=== PATIENT | male | born 1965 | race African-American/Black ===

== ENCOUNTER 2016-10-03 23:26 | Emergency (ER) | payer MEDICARE ==
--- NOTE | 2016-10-04 04:37 | ER Document Report ---
ED Dizziness/Weakness - General Chief Complaint: Dizziness Stated Complaint: DIZZINESS Time seen by provider: 04:32 Mode of Arrival: Ambulatory Information source: Patient Notes: 50-year-old male presents to ED for dizziness for 2 weeks with any movement he states he had peritonitis from August 25 and he is on peritoneal dialysis for renal failure. TRAVEL OUTSIDE OF THE [place] IN LAST 30 DAYS: No - HPI Patient complains to provider of: Dizziness Onset: Other - Since September 15 Onset/Duration: Intermittent Quality of pain: No pain Pain Level: Denies Associated symptoms: Dizzy - A staggering since September 15 Exacerbated by: Change in position, Movement of head Baseline gait: Walks w/o assistance - Related Data Allergies/Adverse Reactions: cefazolin sodium [From Ancef] Allergy (Verified 10/12/13 09:26) Hives Iodinated Contrast Media - Oral and [IV Dye, Iodine Containing] Allergy ( Verified 10/12/13 09:26) Hot Flash Tuberculin,Ppd,Multi-Puncture [From Tuberculin PPD Nathalie Test] Allergy (Verified 10/12/13 09:26) Hives Past Medical History - General Information source: Patient - Social History Smoking Status: Never Smoker Cigarette use (# per day): No Chew tobacco use (# tins/day): No Smoking Education Provided: No Frequency of alcohol use: None Drug Abuse: None Lives with: Family Family History: DM, Hyperlipidemia, Hypertension Patient has suicidal ideation: No Patient has homicidal ideation: No - Past Medical History Cardiac Medical History: Reports: Hx Congestive Heart Failure, Hx Coronary Artery Disease, Hx Hypercholesterolemia, Hx Hypertension, Hx Pulmonary Embolism Pulmonary Medical History: Reports: Hx COPD, Hx Sleep Apnea EENT Medical History: Reports: None Neurological Medical History: Reports: Hx Cerebrovascular Accident Endocrine Medical History: Reports: Hx Diabetes Mellitus Type 2 Renal/ Medical History: Reports: 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., Hx Peritoneal Dialysis Malignancy Medical History: Reports None GI Medical History: Reports: Hx Gastroesophageal Reflux Disease, Hx Colonoscopy , Hx Endoscopy Musculoskeltal Medical History: Reports Hx Arthritis, Reports Hx Musculoskeletal Trauma Skin Medical History: Reports None Psychiatric Medical History: Reports: None Traumatic Medical History: Reports: None Infectious Medical History: Reports: None Past Surgical History: Reports: Hx Kidney (Renal Surgery) - KIDNEY TRANSPLANT THAT WAS REJECTED thing kidney was removed, Hx Vascular Surgery - NONFUNCTIONING AV FISTULA GRAFTS, peritoneal dialysis catheter - Immunizations Immunizations up to date: Yes Hx Diphtheria, Pertussis, Tetanus Vaccination: Yes - 2009 Hx Pneumococcal Vaccination: 07/02/13 Review of Systems - Review of Systems Constitutional: No symptoms reported EENT: No symptoms reported Cardiovascular: Dizziness - For 2 weeks Respiratory: No symptoms reported Gastrointestinal: No symptoms reported Genitourinary: No symptoms reported Male Genitourinary: No symptoms reported Musculoskeletal: No symptoms reported Skin: No symptoms reported Hematologic/Lymphatic: No symptoms reported Neurological/Psychological: No symptoms reported -: Yes All other systems reviewed and negative Physical Exam - Vital signs Vitals: Temp Pulse Resp BP Pulse Ox 98.1 F 80 18 150/101 H 100 10/03/16 23:35 10/03/16 23:35 10/03/16 23:35 10/03/16 23:35 10/03/16 23:35 Interpretation: Normal Notes: Blood pressure 124/74 when I saw the patient - General General appearance: Appears well, Alert - HEENT Head: Normocephalic, Atraumatic Eyes: Normal Pupils: PERRL - Respiratory Respiratory status: No respiratory distress Chest status: Nontender Breath sounds: Normal Chest palpation: Normal - Cardiovascular Rhythm: Regular Heart sounds: Normal auscultation Murmur: No - Abdominal Inspection: Normal Distension: No distension Bowel sounds: Normal Tenderness: Nontender Organomegaly: No organomegaly - Back Back: Normal, Nontender - Extremities General upper extremity: Normal inspection, Nontender, Normal color, Normal ROM , Normal temperature General lower extremity: Normal inspection, Nontender, Normal color, Normal ROM , Normal temperature, Normal weight bearing. No: Sheba's sign - Neurological Neuro grossly intact: Yes Cognition: Normal Orientation: AAOx4 [place] Scale Eye Opening: Spontaneous [place] Com[place] Scale Verbal: Oriented [place] Scale Motor: Obeys Commands [place] Scale Total: 15 Speech: Normal Motor strength normal: LUE, RUE, LLE, RLE Sensory: Normal - Psychological Associated symptoms: Normal affect, Normal mood - Skin Skin Temperature: Warm Skin Moisture: Dry Skin Color: Normal Course - Re-evaluation Re-evalutation: 10/04/16 06:[address] Pichardo for this patient concerning his dizziness and staggering for the last [address] was ordered and was negative. Patient to continue his peritoneal dialysis as scheduled and follow-up with his primary doctor via telephone today to schedule a follow-up appointment. - Vital Signs Vital signs: Temp Pulse Resp BP Pulse Ox 98.1 F 76 18 126/68 H 100 10/04/16 06:45 10/04/16 06:45 10/04/16 06:45 10/04/16 06:45 10/04/16 06:45 - Laboratory Result Diagrams: 10/04/16 04:15 10/04/16 04:15 Laboratory results interpreted by me: 10/04/16 10/04/16 04:15 04:15 RBC 3.81 L Hgb 10.0 L Hct 30.5 L MCH 26.2 L RDW 14.7 H Eosinophils % 9.8 H Potassium 3.4 L Chloride 96 L BUN 43 H Creatinine 18.37 H Est GFR ( Amer) 3 L Est GFR (Non-Af Amer) 3 L Glucose 131 H Creatine Kinase 1049 H - Diagnostic Test Radiology reviewed: Image reviewed, Reports reviewed Discharge - Discharge Clinical Impression: Dizziness, nonspecific Condition: Stable Disposition: HOME, SELF-CARE Additional Instructions: DIZZINESS: Under normal circumstances, your sense of balance is controlled by a number of signals that your brain receives from several locations: Eyes. No matter what your position, visual signals help you determine where your body is in space and how it's moving. Sensory nerves. These are in your skin, muscles and joints. Sensory nerves send messages to your brain about body movements and positions. Inner ear. The organ of balance in your inner ear is the vestibular labyrinth. It includes loop-shaped structures (semicircular canals) that contain fluid and fine, hair-like sensors that monitor the rotation of your head. Near the semicircular canals are the utricle and saccule, which contain tiny particles called otoconia ([id number]). These particles are attached to sensors that help detect gravity and [id number] motion. Good balance depends on at least two of these three sensory systems working well. For instance, closing your eyes while washing your hair in the shower doesn't mean you'll lose your balance. Signals from your inner ear and sensory nerves help keep you upright. However, if your central nervous system can't process signals from all of these locations, if the messages are contradictory, or if the sensory systems aren't functioning properly, you may experience loss of balance. Dizziness may have a number of potential causes. These may include: Vertigo Vertigo - the false sense of motion or spinning - is the most common symptom of dizziness. Sitting up or moving around may make it worse. Sometimes vertigo is severe enough to cause nausea and vomiting. Vertigo usually results from a problem with the nerves and the structures of the balance mechanism in your inner ear (vestibular system), which sense movement and changes in your head position. Abnormal rhythmic eye movements ( nystagmus) almost always accompany vertigo. Causes of vertigo may include: Benign paroxysmal positional vertigo (BPPV). BPPV involves intense, brief episodes of vertigo associated with a change in the position of your head, often when you turn over in bed or sit up in the morning. It occurs when normal calcium carbonate crystals (otoconia) break loose and fall into the wrong part of the canals in your inner ear. When these particles shift, they stimulate sensors in your ear, producing an episode of vertigo. Doctors don't know what causes BPPV, but it may be a natural result of aging. Trauma to your head also may lead to BPPV. Inflammation in the inner ear. Signs and symptoms of inflammation of the inner ear (acute vestibular neuronitis or labyrinthitis) include sudden, intense vertigo that may persist for several days, with nausea and vomiting. It can be incapacitating, requiring bed rest to minimize the signs and symptoms. Fortunately, vestibular neuronitis generally subsides and clears up on its own. Recovery time may be shorter with vestibular rehabilitation exercises. Although the cause of this condition is unknown, it may be a viral infection. Meniere's disease. This disease involves the excessive buildup of fluid in your inner ear. It may affect adults at any age and is characterized by sudden episodes of vertigo lasting 30 minutes to an hour or longer. Other signs and symptoms include the feeling of fullness in your ear, buzzing or ringing in your ear (tinnitus), and fluctuating hearing loss. The cause of Meniere's disease is unknown. Vestibular migraine. People who experience a vestibular migraine are very sensitive to motion. Dizziness and vertigo caused by a vestibular migraine may be triggered by turning your head quickly, being in a crowded or confusing place , driving or riding in a vehicle, or even watching movement on TV. A vestibular migraine may cause feelings of imbalance or unsteadiness, hearing loss, "muffled " hearing, or ringing in your ears (tinnitus). For most people with a vestibular migraine, vertigo doesn't necessarily happen at the same time as the headache. Instead, typical migraine triggers may lead to vertigo without an actual migraine. Attacks of migrainous vertigo can last from a few minutes to several days. Acoustic neuroma. An acoustic neuroma (schwannoma) is a noncancerous (benign ) growth on the acoustic nerve, which connects the inner ear to your brain. Signs and symptoms of an acoustic neuroma may include dizziness, loss of balance , hearing loss and tinnitus. Rapid changes in motion. Riding on roller coasters or in boats, cars or even airplanes may on occasion make you dizzy. Other causes. Rarely, vertigo can be a symptom of a more serious neurological problem such as a stroke, brain hemorrhage or multiple sclerosis. Feeling of faintness (presyncope) "Presyncope" is the medical term for feeling faint and lightheaded without losing consciousness. Sometimes nausea, pale skin and a sense of dizziness accompany a feeling of faintness. Causes of presyncope include: Drop in blood pressure (orthostatic hypotension). A dramatic drop in your systolic blood pressure - the higher number in your blood pressure reading - may result in lightheadedness or a feeling of faintness. It can occur after sitting up or standing too quickly. Inadequate output of blood from the heart. Conditions such as partially blocked arteries (atherosclerosis), disease of the heart muscle (cardiomyopathy) , abnormal heart rhythm (arrhythmia) or a decrease in blood volume may cause inadequate blood flow from your heart. Loss of balance (disequilibrium) Disequilibrium is the loss of balance or the feeling of unsteadiness when you walk. Causes may include: Inner ear (vestibular) problems. Abnormalities with your inner ear can cause you to feel like you are floating, have a heavy head or are unsteady in the dark. Sensory disorders. Failing vision and nerve damage in your legs (peripheral neuropathy) are common in older adultsand may result in difficulty maintaining your balance. Joint and muscle problems. Muscle weakness and osteoarthritis - the type of arthritis that involves wear and tear of your joints - can contribute to loss of balance when it involves your weight-bearing joints. Medications. Loss of balance can be a side effect of certain medications, such as anti-seizure drugs, sedatives and tranquilizers. Lightheadedness and other kinds of dizziness Feeling lightheaded is the feeling of being "spaced out" or having the sensation of spinning inside your head. It can also give you the sensation that if your lightheadedness worsens, you might lose consciousness. Causes may include: Inner ear disorders. These abnormalities of your inner ear can lead to illusions of motion and make you feel like you're floating. Anxiety disorders. Certain anxiety disorders, such as panic attacks and a fear of leaving home or being in large, open spaces (agoraphobia), may cause lightheadedness. Hyperventilation. Abnormally rapid breathing that often accompanies anxiety disorders may make you feel lightheaded. NORMAL EXAM AND WORKUP: At this time, your examination and workup show no significant abnormality. No significant abnormal physical findings were noted. All laboratory, EKG, and imaging (x-ray, CT scans, ultrasound) studies that were ordered show no significant abnormality. Although your examination and all studies that were ordered showed no significant abnormal finding, there are no examinations and no studies that are 100% accurate. There is always the possibility that some abnormality could exist and not be detected with physical examination or within the limits and capabilities of laboratory and other studies. You should return or follow up as you were instructed on your visit today for further evaluation if your symptoms do not resolve. FOLLOW-UP CARE: If you have been referred to a physician for follow-up care, call the physician s office for an appointment as you were instructed or within the next two days. If you experience worsening or a significant change in your symptoms, notify the physician immediately or return to the Emergency Department at any time for re-evaluation. Referrals: DALE FAIR MD [Primary Care Provider] - Follow up as needed
[2016-10-04 05:32] LABS: ALANINE AMINOTRANSFERASE 30 U/L (21-72); ALBUMIN 4.3 g/dL (3.5-5.0); ALKALINE PHOSPHATASE 113 U/L (38-126); ANION GAP 19 (5-19); ASPARTATE AMINO TRANSFERASE 48 U/L (17-59); BILIRUBIN,TOTAL 0.6 mg/dL (0.2-1.3); BLOOD UREA NITROGEN 43 mg/dL (7-20); CALCIUM 9.6 mg/dL (8.4-10.2); CARBON DIOXIDE 28 mmol/L (22-30); CHLORIDE 96 mmol/L (98-107); CREATINE KINASE 1049 U/L (55-170); GLUCOSE 131 mg/dL (75-110); POTASSIUM 3.4 mmol/L (3.6-5.0); SODIUM 143.2 mmol/L (137-145); TOTAL PROTEIN 8.1 g/dL (6.3-8.2)
[2016-10-04 05:33] LABS: ABSOLUTE BASOPHILS # (AUTO) 0.1 10^3/uL (0.0-0.2); ABSOLUTE EOSINOPHILS # (AUTO) 0.6 10^3/uL (0.0-0.6); ABSOLUTE LYMPHOCYTES (AUTO) 1.2 10^3/uL (0.5-4.7); ABSOLUTE MONOCYTES (AUTO) 0.8 10^3/uL (0.1-1.4); ABSOLUTE NEUT (AUTO) 3.3 10^3/uL (1.7-8.2); BASOPHILS % (AUTO) 0.9 % (0-2); EOSINOPHILS % (AUTO) 9.8 % (0-6); HEMATOCRIT 30.5 % (37.9-51.0); HGB HCT DIFFERENCE -0.5; LYMPHOCYTES % (AUTO) 20.5 % (13-45); MEAN CORPUSCULAR HEMOGLOBIN 26.2 pg (27.0-33.4); MEAN CORPUSCULAR HGB CONC 32.7 g/dL (32.0-36.0); MEAN CORPUSCULAR VOLUME 80 fl (80-97); MONOCYTES % (AUTO) 12.6 % (3-13); RED BLOOD COUNT 3.81 10^6/uL (4.35-5.55); RED CELL DISTRIBUTION WIDTH 14.7 % (11.5-14.0); SEGMENTED NEUTROPHILS % (AUTO) 56.2 % (42-78); WHITE BLOOD COUNT 5.9 10^3/uL (4.0-10.5)
[2016-10-04 05:40] LABS: CREATININE RESULT 18.37 mg/dL (0.52-1.25)
[2016-10-04 05:43] LABS: CREATINE KINASE MB 3.35 ng/mL (<4.55); TROPONIN I 0.022 ng/mL
[2016-10-04 06:46] VITALS: BP 126/68
--- NOTE | 2016-10-04 11:02 | EKG REPORT ---
SEVERITY:- NORMAL ECG - SINUS RHYTHM : Confirmed by: Dorcas Aviles 04-Oct-2016 11:01:35
== END 2016-10-04 06:47 | disposition home or self-care (01) ==
LOC: ER 23:26
DX: R42 Dizziness and giddiness (principal); R26.0 Ataxic gait; I25.10 Atherosclerotic heart disease of native coronary artery without angina pectoris; I12.0 Hypertensive chronic kidney disease with stage 5 chronic kidney disease or end stage renal disease; N18.6 End stage renal disease; Z99.2 Dependence on renal dialysis; E11.9 Type 2 diabetes mellitus without complications; Z88.7 Allergy status to serum and vaccine; Z91.041 Radiographic dye allergy status; Z88.1 Allergy status to other antibiotic agents; Z86.711 Personal history of pulmonary embolism; Z86.73 Personal history of transient ischemic attack (TIA), and cerebral infarction without residual deficits; Z90.5 Acquired absence of kidney
CPT/HCPCS: 36415; 70450; 80053; 82550; 82553; 83690; 84484; 85025; 93005; 93010; 99284

== ENCOUNTER → 2017-07-10 | Outpatient (CLI) | payer MEDICARE | LOC: DAVITANR 09:09 | PROVIDERS: ATTEND Internal Medicine Nephrology | DX: K65.9 Peritonitis, unspecified (principal) | CPT/HCPCS: 80202 ==

== ENCOUNTER 2017-10-12 08:49 | Emergency (ER) | payer MEDICAID, MEDICARE ==
[2017-10-12 09:13] VITALS: BP 150/105
--- NOTE | 2017-10-12 09:22 | ER Document Report ---
HPI - HPI Patient complains to provider of: Sore throat and runny nose Onset: Other - 4 days Onset/Duration: Gradual Pain Level: 3 Context: 51-year-old peritoneal dialysis diabetic complaining of runny nose and sore throat for 4 days. He wants to catch it before it gets really bad. No cough, chest pain, shortness of breath. No fever or chills. No abdominal pain. No nausea vomiting or diarrhea. Associated Symptoms: None Exacerbated by: Denies Relieved by: Denies Similar symptoms previously: Yes Recently seen / treated by doctor: No - ROS ROS below otherwise negative: Yes Systems Reviewed and Negative: Yes All other systems reviewed and negative - REPRODUCTIVE Reproductive: DENIES: : Past Medical History - General Information source: Patient - Social History Smoking Status: Former Smoker Frequency of alcohol use: None Drug Abuse: None Lives with: Family Family History: DM, Hyperlipidemia, Hypertension - Past Medical History Cardiac Medical History: Reports: Hx Congestive Heart Failure, Hx Coronary Artery Disease, Hx Hypercholesterolemia, Hx Hypertension, Hx Pulmonary Embolism Pulmonary Medical History: Reports: Hx COPD, Hx Sleep Apnea Neurological Medical History: Reports: Hx Cerebrovascular Accident Endocrine Medical History: Reports: Hx Diabetes Mellitus Type 2 Renal/ Medical History: Reports: 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 Denies: Hx Pancreatitis Musculoskeltal Medical History: Reports Hx Arthritis, Reports Hx Musculoskeletal Trauma Psychiatric Medical History: Denies: Hx Depression Past Surgical History: Reports: Hx Kidney (Renal Surgery) - KIDNEY TRANSPLANT THAT WAS REJECTED thing kidney was removed, Hx Vascular Surgery - NONFUNCTIONING AV FISTULA GRAFTS, peritoneal dialysis catheter - Immunizations Immunizations up to date: Yes Hx Diphtheria, Pertussis, Tetanus Vaccination: Yes - 2009 Hx Pneumococcal Vaccination: 07/02/13 Vertical Provider Document - CONSTITUTIONAL Agree With Documented VS: Yes Exam Limitations: No Limitations - INFECTION CONTROL TRAVEL OUTSIDE OF THE [place] IN LAST 30 DAYS: No - HEENT HEENT: Normocephalic, Pharyngeal Erythema - Minimal. negative: Conjuctival Injection, Tympanic Membrane Red, Tympanic Membrane Bulging - NECK Neck: Supple. negative: Lymphadenopathy-Left, Lymphadenopathy-Right - RESPIRATORY Respiratory: Breath Sounds Normal, No Respiratory Distress O2 Sat by Pulse Oximetry: 97 - CARDIOVASCULAR Cardiovascular: Regular Rate, Regular Rhythm - MUSCULOSKELETAL/EXTREMETIES Musculoskeletal/Extremeties: MAEW - NEURO Level of Consciousness: Awake, Alert, Appropriate - DERM Integumentary: Warm, Dry, No Rash Course - Vital Signs Vital signs: Temp Pulse Resp BP Pulse Ox 98.7 F 65 16 150/105 H 97 10/12/17 09:11 10/12/17 09:11 10/12/17 09:11 10/12/17 09:11 10/12/17 09:11 Discharge - Discharge Clinical Impression: runny nose, Sore throat Condition: Good Disposition: HOME, SELF-CARE Instructions: Sore Throat ([facility]), Acetaminophen Additional Instructions: Saline nasal spray Chloraseptic spray to your throat Coolmist humidifier, wash it daily Tylenol up to 3000 mg per day [id number] Mucinex decongestant Plenty of fluids Follow-up if you develop fever, chest pain, shortness of breath, worsening symptoms to ER Follow-up with your physician Dr. Fair Referrals: DALE FAIR MD [ACTIVE STAFF] - Follow up as needed
== END 2017-10-12 09:45 | disposition home or self-care (01) ==
LOC: ER 08:49
DX: J02.9 Acute pharyngitis, unspecified (principal); R09.89 Other specified symptoms and signs involving the circulatory and respiratory systems; E11.22 Type 2 diabetes mellitus with diabetic chronic kidney disease; I12.0 Hypertensive chronic kidney disease with stage 5 chronic kidney disease or end stage renal disease; N18.6 End stage renal disease; Z99.2 Dependence on renal dialysis; J44.9 Chronic obstructive pulmonary disease, unspecified; I25.10 Atherosclerotic heart disease of native coronary artery without angina pectoris; Z86.711 Personal history of pulmonary embolism; Z87.891 Personal history of nicotine dependence; Z90.5 Acquired absence of kidney
CPT/HCPCS: 99283

== ENCOUNTER 2018-05-09 09:20 | Emergency (ER) | payer MEDICARE, MEDICAID ==
[2018-05-09 09:51] VITALS: BP 165/103
--- NOTE | 2018-05-09 09:56 | ER Document Report ---
ED General - General Chief Complaint: Blood Pressure Problem Stated Complaint: BLOOD PRESSURE PROBLEM Time Seen by Provider: 05/09/18 09:27 Mode of Arrival: Ambulatory Information source: Patient, [facility] Records Notes: 52-year-old male with congestive heart failure, COPD, hypertension, hyperlipidemia, coronary artery disease, end-stage renal disease on peritoneal dialysis presents with concern of elevated blood pressure. Patient states that he has had an increase in his blood pressure readings over the last 2 weeks. He states that he has been working with his primary care physician and cvt rn regarding this. Patient is currently on hydralazine which is a new medication for him, amlodipine and clonidine. He did not take those medications this morning. Hydralazine was added earlier this week by his cvt rn. Patient denies any headache, blurred vision, chest pain, shortness of breath, abdominal pain, weakness, difficulty with ambulation, slurred speech. Patient does complain of some sinus pressure and nasal congestion. TRAVEL OUTSIDE OF THE [place] IN LAST 30 DAYS: No - HPI Onset: Other Onset/Duration: Gradual, Persistent Quality of pain: Pressure Severity: Mild Associated symptoms: denies: Chest pain, Nonproductive cough, Fever, Headache, Nausea, Vomiting, Shortness of breath Exacerbated by: Denies Relieved by: Denies Similar symptoms previously: Yes Recently seen / treated by doctor: Yes - Related Data Allergies/Adverse Reactions: cefazolin sodium [From Ancef] Allergy (Verified 10/12/13 09:26) Hives Iodinated Contrast- Oral and IV Dye [IV Dye, Iodine Containing] Allergy ( Verified 10/12/13 09:26) Hot Flash Tuberculin,Ppd,Multi-Puncture [From Tuberculin PPD Nathalie Test] Allergy (Verified 10/12/13 09:26) Hives Past Medical History - General Information source: Patient - Social History Smoking Status: Former Smoker Chew tobacco use (# tins/day): No Frequency of alcohol use: None Drug Abuse: None Lives with: Family Family History: DM, Hyperlipidemia, Hypertension Patient has suicidal ideation: No Patient has homicidal ideation: No - Past Medical History Cardiac Medical History: Reports: Hx Congestive Heart Failure, Hx Coronary Artery Disease, Hx Hypercholesterolemia, Hx Hypertension, Hx Pulmonary Embolism Pulmonary Medical History: Reports: Hx COPD, Hx Sleep Apnea Neurological Medical History: Reports: Hx Cerebrovascular Accident Endocrine Medical History: Reports: Hx Diabetes Mellitus Type 2 Renal/ Medical History: Reports: 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 Denies: Hx Pancreatitis Musculoskeletal Medical History: Reports Hx Arthritis, Reports Hx Musculoskeletal Trauma Psychiatric Medical History: Denies: Hx Depression Past Surgical History: Reports: Hx Kidney (Renal Surgery) - KIDNEY TRANSPLANT THAT WAS REJECTED thing kidney was removed, Hx Vascular Surgery - NONFUNCTIONING AV FISTULA GRAFTS, peritoneal dialysis catheter - Immunizations Immunizations up to date: Yes Hx Diphtheria, Pertussis, Tetanus Vaccination: Yes - 2009 Hx Pneumococcal Vaccination: 07/02/13 Review of Systems - Review of Systems Notes: REVIEW OF SYSTEMS: CONSTITUTIONAL : Denies fever, chills, or sweats. Denies recent illness. Denies weight loss, recent hospitalizations. EENT: Denies visual changes, eye pain. Denies sore throat, oral lesions, difficulty swallowing. CARDIOVASCULAR: Denies chest pain. Denies palpitations. Denies lower extremity edema. RESPIRATORY: Denies cough. Denies shortness of breath, wheezing. GASTROINTESTINAL: Denies abdominal pain or distention. Denies nausea, vomiting , or diarrhea. Denies blood in vomitus, stools, or per rectum. Denies black, tarry stools. Denies constipation. GENITOURINARY: Denies difficulty urinating, painful urination, frequency, blood in urine, testicular pain or penile discharge. MUSCULOSKELETAL: Denies back or neck pain or stiffness. Denies joint pain or swelling. SKIN: Denies rash, lesions or sores. HEMATOLOGIC : Denies easy bruising or bleeding. LYMPHATIC: Denies swollen glands. NEUROLOGICAL: Denies confusion or altered mental status. Denies loss of consciousness. Denies dizziness or lightheadedness. Denies headache. Denies weakness or paralysis. Denies problems difficulty with ambulation, slurred speech. Denies sensory loss, numbness, or tingling. Denies seizures. PSYCHIATRIC: Denies anxiety or stress. Denies depression, suicidal ideation, or Physical Exam - Vital signs Vitals: Temp Pulse Resp BP Pulse Ox 97.6 F 72 20 194/99 H 98 05/09/18 09:25 05/09/18 09:25 05/09/18 09:25 05/09/18 09:25 05/09/18 09:25 - Notes Notes: PHYSICAL EXAMINATION: GENERAL: Well-appearing, well-nourished and in no acute distress. HEAD: Atraumatic, normocephalic. EYES: Pupils equal round and reactive to light, extraocular movements intact, sclera anicteric, conjunctiva are normal. ENT: Nares patent, oropharynx clear without exudates. Moist mucous membranes. NECK: Normal range of motion, supple without lymphadenopathy LUNGS: Breath sounds clear to auscultation bilaterally and equal. No wheezes rales or rhonchi. HEART: Regular rate and rhythm without murmurs ABDOMEN: Soft, nontender, nondistended abdomen. No guarding, no rebound. No masses appreciated. Musculoskeletal: Normal range of motion, no pitting or edema. No cyanosis. NEUROLOGICAL: Cranial nerves grossly intact. Normal speech, normal gait. Normal sensory, motor exams PSYCH: Normal mood, normal affect. SKIN: Warm, Dry, normal turgor, no rashes or lesions noted. Course - Re-evaluation Re-evalutation: 05/09/18 10:37 52-year-old male presented with concern of elevated blood pressure readings at home. Patient states that he had an elevated reading of 165/90. He does state that he has been working closely with his primary care physician and cvt rn to control his blood pressure better. Patient has been on clonidine and amlodipine for a long period of time and hydralazine was recently added by his cvt rn. He denies any headache, blurred vision, slurred speech, chest pain, shortness of breath. He has been performing his peritoneal dialysis as directed. He does complain of some nasal congestion and sinus pressure. Patient did not take his blood pressure medication this morning. Upon arrival blood pressure found to be 194/99. He is afebrile, not hypoxic and has a normal heart rate. Patient is requesting Flonase for his nasal congestion and states that he has been on this previously. He does have an upcoming appointment with his primary care physician in 2 days. Patient is asymptomatic, well-appearing and shows no evidence of hypertensive urgency or emergency. Patient was instructed to take his medication as he supposed to. Patient provided the opportunity to ask questions, and express concerns. Discharge instructions discussed. Patient is agreeable with discharge home. Return indications explained and discussed with the patient who displays understanding. Patient encouraged to return to the emergency department immediately with any concerns. Presentation of asymptomatic hypertension. Patient denies any symptoms concerning for SAH, dissection, [place], or encephalopaty. Alert, oriented, and denies any symptoms at time of assessment. Normal neuro exam. Per [facility] policy guidelines, will therefore not obtain any labs or EKG at this time and will not initiate new BP treatment. I have discussed critical importance of follow up with PCP within 1 week and increased risk of devastating stroke, heart attack, respiratory distress, and other life threatening complications if blood pressure is not reduced appropriately. Diet and exercise habits also discussed. Patient will be discharged with return precautions and follow-up recommendations. - Vital Signs Vital signs: Temp Pulse Resp BP Pulse Ox 98.9 F 78 16 165/103 H 100 05/09/18 09:51 05/09/18 09:51 05/09/18 09:51 05/09/18 09:51 05/09/18 09:51 Discharge - Discharge Clinical Impression: Nasal congestion Hypertension Qualifiers: Hypertension type: unspecified Qualified Code(s): I10 - Essential (primary) hypertension Sinusitis Qualifiers: Sinusitis location: maxillary Chronicity: chronic Qualified Code(s): J32.0 - Chronic maxillary sinusitis Condition: Good Disposition: HOME, SELF-CARE Instructions: High Blood Pressure ([facility]), Sinusitis ([facility]) Additional Instructions: You were seen today for blood pressure that was high. This is a long-term risk factor for multiple medical problems including heart attack and stroke. However, the blood pressure in of itself will not cause you to have an acute stroke or heart attack over the course of just several days or weeks. You need to have a gradual reduction of your blood pressure back to normal levels over the next several months in conjunction with your primary care physician. Return if you develop headache, weakness, numbness, chest pain, pass out, or have any other symptoms that are concerning to you. Regarding Blood Pressure: Your blood pressure was noted to be greater than 120/80 at least once in the emergency room today. It is recommended that you follow-up with her primary care physician in the next week for repeat blood pressure check. The Centers for Medicare and Medicaid Services has specific recommendations regarding a person's blood pressure. There are several lifestyle modifications that are recommended in order to help lower your blood pressure. These include: Quitting smoking if you smoke. Reducing the amount of sodium in your diet. Getting regular exercise Limiting alcohol to no more than 2 drinks a day for men and one drink a day for women. Eating a healthy diet, including more fruits and vegetables, low fat dairy products, less saturated and total fat. Losing weight if you are overweight. FOLLOW-UP: Call your doctor's office and let them know your blood pressure was elevated and you were advised to get your blood pressure checked in the above time-line. If you are unable to get into your doctor's office in this time period, you can follow-up with a new physician (I have left the numbers below for a few primary care doctors affiliated with this [facility]) or return to the ER. PRIMARY CARE PHYSICIANS: Dr. Salazar Nina [address], [place] [address] [phone] Dr Andrew Address: [address] [place] [address] [place] [address] Dr Fair Address: [address] [place] [address] , [place] [address] Prescriptions: Fluticasone Propionate [Flonase Nasal Summit 50 Mcg/Summit 16 gm] 1 spray NASL Q12 #1 inhaler Forms: Elevated Blood Pressure Referrals: DALE FAIR MD [Primary Care Provider] - Follow up as needed
== END 2018-05-09 09:59 | disposition home or self-care (01) ==
LOC: ER 09:20
DX: I12.0 Hypertensive chronic kidney disease with stage 5 chronic kidney disease or end stage renal disease (principal); E11.22 Type 2 diabetes mellitus with diabetic chronic kidney disease; N18.6 End stage renal disease; Z99.2 Dependence on renal dialysis; J32.0 Chronic maxillary sinusitis; R09.81 Nasal congestion; I25.10 Atherosclerotic heart disease of native coronary artery without angina pectoris; J44.9 Chronic obstructive pulmonary disease, unspecified; Z79.899 Other long term (current) drug therapy; Z88.1 Allergy status to other antibiotic agents; Z91.041 Radiographic dye allergy status; Z88.7 Allergy status to serum and vaccine; Z90.5 Acquired absence of kidney
CPT/HCPCS: 99283

== ENCOUNTER 2018-09-08 01:11 | Emergency (ER) | payer MEDICARE, MEDICAID ==
[2018-09-08] MEDS ORDERED: ONDANSETRON 4 MG TAB.RAPDIS PO ONE (04:25)
--- NOTE | 2018-09-08 04:28 | ER Document Report ---
ED Medical Screen (RME) - General Chief Complaint: Nausea Stated Complaint: BACK PAIN Time Seen by Provider: 09/08/18 04:20 Notes: 52-year-old male with a history of peritoneal dialysis that he performs at home every day, comes with complaints of developing nausea and pain that feels like it goes between his lower abdomen and lower back. Pain is not severe. He does not make urine. He states it almost does not feel like pain but it is a dis comfort. He denies vomiting, fever, inability to eat. He denies chest pain, shortness of breath. TRAVEL OUTSIDE OF THE [place] IN LAST 30 DAYS: No - Related Data Allergies/Adverse Reactions: cefazolin sodium [From Ancef] Allergy (Verified 10/12/13 09:26) Hives Iodinated Contrast- Oral and IV Dye [IV Dye, Iodine Containing] Allergy (Verified 10/12/13 09:26) Hot Flash Tuberculin,Ppd,Multi-Puncture [From Tuberculin PPD Nathalie Test] Allergy (Verified 10/12/13 09:26) Hives Past Medical History - Social History Family history: CAD, Hypertension - Past Medical History Cardiac Medical History: Reports: Hx Congestive Heart Failure, Hx Coronary Artery Disease, Hx Hypercholesterolemia, Hx Hypertension, Hx Pulmonary Embolism Pulmonary Medical History: Reports: Hx COPD, Hx Sleep Apnea Neurological Medical History: Reports: Hx Cerebrovascular Accident Endocrine Medical History: Reports: Hx Diabetes Mellitus Type 2 Renal/ Medical History: Reports: 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 Denies: Hx Pancreatitis Musculoskeltal Medical History: Reports Hx Arthritis, Reports Hx Musculoskeletal Trauma Psychiatric Medical History: Denies: Hx Depression Past Surgical History: Reports: Hx Kidney (Renal Surgery) - KIDNEY TRANSPLANT THAT WAS REJECTED thing kidney was removed, Hx Vascular Surgery - NONFUNCTIONING AV FISTULA GRAFTS, peritoneal dialysis catheter - Immunizations Immunizations up to date: Yes Hx Diphtheria, Pertussis, Tetanus Vaccination: Yes - 2009 Physical Exam - Vital signs Vitals: Temp Pulse Resp BP Pulse Ox 98.7 F 81 18 154/95 H 96 09/08/18 01:37 09/08/18 01:37 09/08/18 01:37 09/08/18 01:37 09/08/18 01:37 - Abdominal Tenderness: Tender - General minimal tenderness over the mid to lower abdomen, no guarding or rigidity. Course - Re-evaluation Re-evalutation: Patient does not appear to be in distress. He was sleeping and easily aroused. I have a low suspicion of aortic dissection or acute abdomen as a result. Pain in the general lower abdomen to lower back. General complaints without specific tenderness of the abdomen or back on exam. Denies pain with movement. Workup pending. - Vital Signs Vital signs: Temp Pulse Resp BP Pulse Ox 98.7 F 81 18 154/95 H 96 09/08/18 01:37 09/08/18 01:37 09/08/18 01:37 09/08/18 01:37 09/08/18 01:37 Doctor's Discharge - Discharge Referrals: DALE FAIR MD [Primary Care Provider] - Follow up as needed
[2018-09-08 05:00] LABS: ABSOLUTE BASOPHILS # (AUTO) 0.1 10^3/uL (0.0-0.2); ABSOLUTE EOSINOPHILS # (AUTO) 0.5 10^3/uL (0.0-0.6); ABSOLUTE LYMPHOCYTES (AUTO) 1.2 10^3/uL (0.5-4.7); ABSOLUTE NEUT (AUTO) 9.3 10^3/uL (1.7-8.2); BASOPHILS % (AUTO) 0.9 % (0-2); EOSINOPHILS % (AUTO) 4.1 % (0-6); HEMATOCRIT 24.4 % (37.9-51.0); HEMOGLOBIN 8.4 g/dL (13.5-17.0); LYMPHOCYTES % (AUTO) 9.7 % (13-45); MEAN CORPUSCULAR HEMOGLOBIN 27.6 pg (27.0-33.4); MEAN CORPUSCULAR HGB CONC 34.5 g/dL (32.0-36.0); MEAN CORPUSCULAR VOLUME 80 fl (80-97); MONOCYTES % (AUTO) 8.2 % (3-13); PLATELET COUNT 249 10^3/uL (150-450); RED BLOOD COUNT 3.05 10^6/uL (4.35-5.55); RED CELL DISTRIBUTION WIDTH 14.1 % (11.5-14.0); SEGMENTED NEUTROPHILS % (AUTO) 77.1 % (42-78); TOTAL CELLS COUNTED % (AUTO) 100 %; WHITE BLOOD COUNT 12.1 10^3/uL (4.0-10.5)
[2018-09-08 05:21] LABS: ALANINE AMINOTRANSFERASE 27 U/L (21-72); ALBUMIN 3.9 g/dL (3.5-5.0); ALKALINE PHOSPHATASE 121 U/L (38-126); ANION GAP 16 (5-19); ASPARTATE AMINO TRANSFERASE 29 U/L (17-59); BLOOD UREA NITROGEN 63 mg/dL (7-20); CALCIUM 8.3 mg/dL (8.4-10.2); CARBON DIOXIDE 29 mmol/L (22-30); CHLORIDE 95 mmol/L (98-107); GLUCOSE 124 mg/dL (75-110); LIPASE 651.4 U/L (23-300); POTASSIUM 3.7 mmol/L (3.6-5.0); SODIUM 140.1 mmol/L (137-145); TOTAL PROTEIN 7.9 g/dL (6.3-8.2)
--- NOTE | 2018-09-08 05:27 | RADIOLOGY REPORT (SQ) ---
EXAM DESCRIPTION: XR ABDOMEN SUPINE AND ERECT WITH CHEST (ABD ACUTE SERIES) COMPLETED DATE/TME: 09/08/2018 04:26 CLINICAL HISTORY: 52 years, Male, mid/lower abd pain, nausea COMPARISON: None. NUMBER OF VIEWS: 4 TECHNIQUE: Upright chest with supine and erect views of the abdomen LIMITATIONS: None. COMPARISON: Chest x-ray 03/23/2016 FINDINGS: Heart size is normal. Scarring in the left lung base. No pneumothorax. No free air under the hemidiaphragms. The bowel gas pattern is nonspecific. Round calcification in the right upper quadrant could reflect gallstone. Other etiologies are not excluded. Vascular calcifications are present. Surgical clips in the left lower quadrant. Drainage catheter projects over the left lower quadrant. Nondilated air-filled loops of large and small bowel with scattered air-fluid levels the reflect mild ileus. No free air IMPRESSION: No acute cardiopulmonary process. Probable ileus. No free air. Questionable gallstones. copyright 2010 [employer]- All Rights Reserved
[2018-09-08] MEDS ORDERED: OXYCODONE-ACETAMINOPHEN 5-325 MG TABLET PO ONE (06:18)
--- NOTE | 2018-09-08 06:18 | ER Document Report ---
ED General - General Chief Complaint: Nausea Stated Complaint: BACK PAIN Time Seen by Provider: 09/08/18 04:20 Notes: Patient is a 52-year-old male with end-stage renal disease on peritoneal dialysis that presents to the emergency department for chief complaint of low back pain. Patient states that the pain started around 3 PM yesterday he had associated nausea with it but no vomiting, the lower pain, he has had chronic low back pain in the past, he took an Aleve without much relief of his pain so he decided to come to the emergency department. He denies having any recent fevers, chills, night sweats, abdominal pain, or diarrhea. He currently rates this pain in his lower back as a 6 out of 10 describes it as a constant aching sensation, seems to be worse with movements as well. He denies noting any chest pain, shortness of breath or difficulty breathing, no other complaints at this time. In regards to his back pain, he denies any numbness, weakness or tingling, no saddle anesthesias or paresthesias, denies any loss of bowel function, he does not make much urine as a result of his renal disease. Past Medical History: End-stage renal disease on perineal dialysis, chronic low back pain, hypertension Past Surgical History: Peritoneal dialysis catheter, kidney transplant Social History: Denies tobacco, alcohol or drug use Family History: Reviewed and noncontributory for presenting illness Allergies: Reviewed, see documented allergy list. REVIEW OF SYSTEMS: Other than noted above, the 12 point review of systems was reviewed with the patient and were negative, all pertinent findings are included in the HPI. PHYSICAL EXAMINATION: Vital signs reviewed, nursing noted reviewed. GENERAL: Obese male, no acute distress HEAD: Atraumatic, normocephalic. EYES: Eyes appear normal, extraocular movements intact, sclera anicteric, conjunctiva are normal. ENT: nares patent, oropharynx clear without exudates. Moist mucous membranes. NECK: Normal range of motion, supple without lymphadenopathy LUNGS: Breath sounds clear to auscultation bilaterally and equal. No wheezes rales or rhonchi. HEART: Regular rate and rhythm without murmurs ABDOMEN: Soft, obese, nontender, normoactive bowel sounds. No rebound, guar ding, or rigidity. No masses appreciated. Peritoneal dialysis catheter in the left lower quadrant Back: Mild paraspinal tenderness to the lumbar spine, but no midline tenderness, no erythema, swelling or induration noted. Thoracic spine was nontender as well. EXTREMITIES: Nontender, good range of motion, no pitting or edema. NEUROLOGICAL: No focal neurological deficits. Moves all extremities spontaneously Motor and sensory grossly intact on exam. PSYCH: Normal mood, normal affect. SKIN: Warm, Dry, normal turgor, no rashes or lesions noted on exposed skin TRAVEL OUTSIDE OF THE [place] IN LAST 30 DAYS: No - Related Data Allergies/Adverse Reactions: cefazolin sodium [From Ancef] Allergy (Verified 10/12/13 09:26) Hives Iodinated Contrast- Oral and IV Dye [IV Dye, Iodine Containing] Allergy (Verified 10/12/13 09:26) Hot Flash Tuberculin,Ppd,Multi-Puncture [From Tuberculin PPD Nathalie Test] Allergy (Verified 10/12/13 09:26) Hives Past Medical History - Social History Smoking Status: Never Smoker Family History: DM, Hyperlipidemia, Hypertension Patient has suicidal ideation: No Patient has homicidal ideation: No - Past Medical History Cardiac Medical History: Reports: Hx Congestive Heart Failure, Hx Coronary Artery Disease, Hx Hypercholesterolemia, Hx Hypertension, Hx Pulmonary Embolism Pulmonary Medical History: Reports: Hx COPD, Hx Sleep Apnea Neurological Medical History: Reports: Hx Cerebrovascular Accident Endocrine Medical History: Reports: Hx Diabetes Mellitus Type 2 Renal/ Medical History: Reports: 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 Denies: Hx Pancreatitis Musculoskeletal Medical History: Reports Hx Arthritis, Reports Hx Musculoskeletal Trauma Psychiatric Medical History: Denies: Hx Depression Past Surgical History: Reports: Hx Kidney (Renal Surgery) - KIDNEY TRANSPLANT THAT WAS REJECTED thing kidney was removed, Hx Vascular Surgery - NONFUNCTIONING AV FISTULA GRAFTS, peritoneal dialysis catheter - Immunizations Immunizations up to date: Yes Hx Diphtheria, Pertussis, Tetanus Vaccination: Yes - 2009 Hx Pneumococcal Vaccination: 07/02/13 Physical Exam - Vital signs Vitals: Temp Pulse Resp BP Pulse Ox 98.7 F 81 18 154/95 H 96 09/08/18 01:37 09/08/18 01:37 09/08/18 01:37 09/08/18 01:37 09/08/18 01:37 Course - Re-evaluation Re-evalutation: Patient seen and examined vital signs reviewed. Laboratory data and imaging were ordered as appropriate for the patient's presenting symptoms and complaint, with consideration of any critical or life threatening conditions that may be associated with their obtained history and exam as noted above. Patient was treated with IV fluids, and Percocet for his pain as well as Zofran for the nausea Results were reviewed when available and demonstrated mild leukocytosis and elevation in lipase, but not 3 times the upper limit of normal, anemia appears to be at baseline as well as the patient's renal function, as he is on peritoneal dialysis. The patient was re-evaluated and was stable, I believe the patient has a mild case of pancreatitis, he has had slightly elevated lipase in the past, as he had some associated nausea, low back pain may be related to his chronic low back pain, will discharge him home with some medication to take for pain and nausea, advised and encouraged oral fluid intake, patient was agreeable to discharge to home. Evaluation was most consistent with pancreatitis, low back pain Results were discussed with the patient at this point, after careful consideration I feel that that patient can be discharged from the emergency department, the patient was educated treatments and reasons to return to the emergency department based on their presumed diagnosis as noted above, they were advised to followup with a primary care physician in 2-3 days. Patient was agreeable to plan of care. *Note is created using voice recognition software and may contain spelling, syntax or grammatical errors. Laboratory 09/08/18 09/08/18 04:47 04:47 WBC 12.1 H RBC 3.05 L Hgb 8.4 L Hct 24.4 L MCV 80 MCH 27.6 MCHC 34.5 RDW 14.1 H Plt Count 249 Seg Neutrophils % 77.1 Lymphocytes % 9.7 L Monocytes % 8.2 Eosinophils % 4.1 Basophils % 0.9 Absolute Neutrophils 9.3 H Absolute Lymphocytes 1.2 Absolute Monocytes 1.0 Absolute Eosinophils 0.5 Absolute Basophils 0.1 Sodium 140.1 Potassium 3.7 Chloride 95 L Carbon Dioxide 29 Anion Gap 16 BUN 63 H Creatinine 17.99 H Est GFR ( Amer) 3 L Est GFR (Non-Af Amer) 3 L Glucose 124 H Calcium 8.3 L Total Bilirubin 1.0 Direct Bilirubin 1.0 H Neonat Total Bilirubin Not Reportable Neonat Direct Bilirubin Not Reportable Neonat Indirect Bili Not Reportable AST 29 ALT 27 Alkaline Phosphatase 121 Total Protein 7.9 Albumin 3.9 Lipase 651.4 H Acute Abdomen Series 09/08/18 04:26 IMPRESSION: No acute cardiopulmonary process. Probable ileus. No free air. Questionable gallstones. copyright 2010 [employer]- All Rights Reserved - Vital Signs Vital signs: Temp Pulse Resp BP Pulse Ox 98.4 F 79 18 110/59 L 100 09/08/18 07:54 09/08/18 07:54 09/08/18 07:54 09/08/18 07:54 09/08/18 07:54 - Laboratory Result Diagrams: 09/08/18 04:47 09/08/18 04:47 Laboratory results interpreted by me: 09/08/18 09/08/18 04:47 04:47 WBC 12.1 H RBC 3.05 L Hgb 8.4 L Hct 24.4 L RDW 14.1 H Lymphocytes % 9.7 L Absolute Neutrophils 9.3 H Chloride 95 L BUN 63 H Creatinine 17.99 H Est GFR ( Amer) 3 L Est GFR (Non-Af Amer) 3 L Glucose 124 H Calcium 8.3 L Direct Bilirubin 1.0 H Lipase 651.4 H Discharge - Discharge Clinical Impression: Pancreatitis Qualifiers: Chronicity: acute Pancreatitis type: unspecified pancreatitis type Acute pancreatitis complication: unspecified Qualified Code(s): K85.90 - Acute pancreatitis without necrosis or infection, unspecified Low back pain Qualifiers: Chronicity: chronic Back pain laterality: right Sciatica presence: without s ciatica Qualified Code(s): M54.5 - Low back pain; G89.29 - Other chronic pain Condition: Stable Disposition: HOME, SELF-CARE Additional Instructions: Make sure to stay well-hydrated, continue your dialysis as scheduled, and please take the medications as directed. Prescriptions: Ondansetron [Zofran Odt 4 mg Tablet] 1 tab PO Q8H PRN #15 tab.rapdis PRN Reason: For Nausea/Vomiting Oxycodone HCl/Acetaminophen [Percocet 5-325 mg Tablet] 1 tab PO Q8H PRN #15 tab PRN Reason: general pain Referrals: DALE FAIR MD [Primary Care Provider] - Follow up in 3-5 days
[2018-09-08] MEDS ORDERED: NORMAL SALINE 500 ML IV ONE (06:19)
[2018-09-08 07:57] VITALS: BP 110/59
== END 2018-09-08 07:57 | disposition home or self-care (01) ==
LOC: ER 01:11
DX: K85.90 Acute pancreatitis without necrosis or infection, unspecified (principal); M54.5 Low back pain; G89.29 Other chronic pain; R11.0 Nausea; I13.2 Hypertensive heart and chronic kidney disease with heart failure and with stage 5 chronic kidney disease, or end stage renal disease; E11.22 Type 2 diabetes mellitus with diabetic chronic kidney disease; N18.6 End stage renal disease; I50.9 Heart failure, unspecified; Z99.2 Dependence on renal dialysis
CPT/HCPCS: 99284; 36415; 83690; 85025; 80053; 74022; A9270 ×2; J7040; S0119

== ENCOUNTER 2018-09-18 11:16 | Inpatient (IN) | payer MEDICARE, MEDICAID ==
[2018-09-18] MEDS: ONDANSETRON HCL INJ/PF 4 MG/2 ML SDV IV PRN (13:41)
[2018-09-18 14:11] LABS: ABSOLUTE BASOPHILS # (AUTO) 0.1 10^3/uL (0.0-0.2); ABSOLUTE EOSINOPHILS # (AUTO) 0.2 10^3/uL (0.0-0.6); ABSOLUTE LYMPHOCYTES (AUTO) 1.2 10^3/uL (0.5-4.7); ABSOLUTE MONOCYTES (AUTO) 0.6 10^3/uL (0.1-1.4); ABSOLUTE NEUT (AUTO) 6.1 10^3/uL (1.7-8.2); BASOPHILS % (AUTO) 1.5 % (0-2); EOSINOPHILS % (AUTO) 2.9 % (0-6); HEMATOCRIT 28.9 % (37.9-51.0); HEMOGLOBIN 9.7 g/dL (13.5-17.0); LYMPHOCYTES % (AUTO) 14.9 % (13-45); MEAN CORPUSCULAR HGB CONC 33.5 g/dL (32.0-36.0); MEAN CORPUSCULAR VOLUME 81 fl (80-97); MONOCYTES % (AUTO) 6.9 % (3-13); PLATELET COUNT 290 10^3/uL (150-450); RED BLOOD COUNT 3.59 10^6/uL (4.35-5.55); RED CELL DISTRIBUTION WIDTH 14.3 % (11.5-14.0); SEGMENTED NEUTROPHILS % (AUTO) 73.8 % (42-78); TOTAL CELLS COUNTED % (AUTO) 100 %; WHITE BLOOD COUNT 8.3 10^3/uL (4.0-10.5)
--- NOTE | 2018-09-18 14:24 | RADIOLOGY REPORT (SQ) ---
EXAM DESCRIPTION: CHEST 2 VIEWS COMPLETED DATE/TIME: 09/18/2018 2:04 pm REASON FOR STUDY: vomitting COMPARISON: Two-view chest 03/23/2016 EXAM PARAMETERS: NUMBER OF VIEWS: two views TECHNIQUE: Digital Frontal and Lateral radiographic views of the chest acquired. RADIATION DOSE: NA LIMITATIONS: none FINDINGS: LUNGS AND PLEURA: No opacities, masses or pneumothorax. No pleural effusion. MEDIASTINUM AND HILAR STRUCTURES: No masses or contour abnormalities. HEART AND VASCULAR STRUCTURES: Heart normal size. No evidence for failure. BONES: No acute findings. HARDWARE: None in the chest. OTHER: No other significant finding. IMPRESSION: NO ACUTE RADIOGRAPHIC FINDING IN THE CHEST. TECHNICAL DOCUMENTATION: JOB ID: [id number] [employer]- All Rights Reserved Reading location - IP/workstation name: [email or web address]-COUNT INCLUDES THE [email or web address]
[2018-09-18 14:29] LABS: ALANINE AMINOTRANSFERASE 46 U/L (21-72); ALBUMIN 4.4 g/dL (3.5-5.0); ALKALINE PHOSPHATASE 137 U/L (38-126); ASPARTATE AMINO TRANSFERASE 45 U/L (17-59); BILIRUBIN,DIRECT 0.6 mg/dL (0.0-0.4); BILIRUBIN,TOTAL 0.6 mg/dL (0.2-1.3); BLOOD UREA NITROGEN 57 mg/dL (7-20); CALCIUM 9.2 mg/dL (8.4-10.2); GLUCOSE 102 mg/dL (75-110); POTASSIUM 3.8 mmol/L (3.6-5.0); TOTAL PROTEIN 8.3 g/dL (6.3-8.2)
[2018-09-18 14:35] LABS: CARBON DIOXIDE 26 mmol/L (22-30); CHLORIDE 94 mmol/L (98-107); SODIUM 140.8 mmol/L (137-145)
[2018-09-18] MEDS: CEFTRIAXONE 1 GM/D5W RTU 1 GM/50 ML RTUPB IV SCH (14:35)
[2018-09-18 14:36] LABS: ANION GAP 21 (5-19)
--- NOTE | 2018-09-18 15:30 | RADIOLOGY REPORT (SQ) ---
EXAM DESCRIPTION: U/S ABDOMEN LIMITED W/O DOP COMPLETED DATE/TIME: 09/18/2018 3:15 pm REASON FOR STUDY: Vomiting COMPARISON: 11/08/2011 TECHNIQUE: Dynamic and static grayscale images acquired of the abdomen and recorded on PACS. Katieo tang selected color Doppler and spectral images recorded. LIMITATIONS: None. FINDINGS: PANCREAS: The head of the pancreas is normal. Body and tail were not seen. LIVER: No masses. Echotexture normal. LIVER VASCULATURE: Normal directional flow of the main portal vein and hepatic veins. GALLBLADDER: There appears to be some sludge in the gallbladder. No gallstones are present. There i s no wall thickening or pericholecystic fluid. ULTRASOUND-DETECTED MCLAIN'S SIGN: Negative. INTRAHEPATIC DUCTS AND COMMON DUCT: CBD and intrahepatic ducts normal caliber. No filling defects. INFERIOR VENA CAVA: Not imaged. AORTA: No aneurysm. RIGHT KIDNEY: Normal size, 11.8 cm. Normal echogenicity. No solid or suspicious masses. There are s everal cysts. The largest measures 5 cm. No hydronephrosis. No calcifications. PERITONEAL AND RIGHT PLEURAL SPACE: No ascites or effusions. OTHER: No other significant findings. IMPRESSION: There appears to be some gallbladder sludge. No gallstones. TECHNICAL DOCUMENTATION: JOB ID: [id number] [employer]- All Rights Reserved Reading location - IP/workstation name: [email or web address]
[2018-09-18] MEDS ORDERED: (PENDING PHARMACY ID) (Oxycodone Hcl/Acetaminophen [Percocet 10-325 Mg Tablet] 1 EACH) PO PRN (17:35)
[2018-09-18] MEDS ORDERED: (PENDING PHARMACY ID) (Sevelamer Carbonate [Renvela] 2,400 MG) PO PRN (17:35)
[2018-09-18] MEDS ORDERED: COLCHICINE 0.6 MG TABLET PO PRN (17:35)
[2018-09-18] MEDS ORDERED: SEVELAMER CARBONATE 4000 MG PO SCH (17:45)
[2018-09-18] MEDS ORDERED: CINACALCET HCL PO SCH (17:45)
[2018-09-18] MEDS ORDERED: (PENDING PHARMACY ID) (Clonidine Hcl [Catapres 0.3 Mg Tablet] 0.3 MG) PO SCH (17:45)
[2018-09-18] MEDS ORDERED: VITAMIN B COMP W C PO SCH (17:45)
[2018-09-18] MEDS ORDERED: (PENDING PHARMACY ID) (Potassium Chloride [Klor-Con M20] 20 MEQ) PO SCH (17:45)
[2018-09-18] MEDS ORDERED: HYDRALAZINE HCL 50 MG TABLET PO SCH (17:45)
[2018-09-18] MEDS ORDERED: FOLIC ACID PO SCH (17:45)
[2018-09-18] MEDS ORDERED: AMLODIPINE BESYLATE 10 MG TABLET PO SCH (18:00)
[2018-09-18] MEDS ORDERED: SEVELAMER HCL 800 MG TABLET PO PRN (18:14)
--- NOTE | 2018-09-18 18:23 | RADIOLOGY REPORT (SQ) ---
EXAM DESCRIPTION: CT ABD/PELVIS NO ORAL OR IV COMPLETED DATE/TIME: 09/18/2018 5:49 pm REASON FOR STUDY: Abdominal pain COMPARISON: None. TECHNIQUE: CT scan of the abdomen and pelvis performed without intravenous or oral contrast. Images reviewed with lung, soft tissue, and bone windows. Reconstructed coronal and sagittal MPR images revi ewed. All images stored on PACS. All CT scanners at this facility use dose modulation, iterative reconstruction, and/or weight based d osing when appropriate to reduce radiation dose to as low as reasonably achievable (ALARA). [facility]: Dose Right [facility]: CareDose [facility]: Dose Right [facility]: Teradose 4D [facility]: Smart [employer] RADIATION DOSE: CT Rad equipment meets quality standard of care and radiation dose reduction techniq ues were employed. CTDIvol: 14.9 mGy. DLP: 837 mGy-cm.mGy. LIMITATIONS: None. FINDINGS: LOWER CHEST: No significant findings. No nodules or infiltrates. NON-CONTRASTED LIVER, SPLEEN, ADRENALS: Evaluation limited by lack of IV contrast. No identified sign ificant masses. PANCREAS: No masses. No peripancreatic inflammatory changes. GALLBLADDER: A couple of tiny gallstones are seen. RIGHT KIDNEY AND URETER: Atrophic. There is calcified cyst. Numerous small cysts are present. LEFT KIDNEY AND URETER: Atrophic. Numerous small cysts with a couple of them calcified. AORTA AND RETROPERITONEUM: No aneurysm. No retroperitoneal masses or adenopathy. BOWEL AND PERITONEAL CAVITY: No obvious bowel mass. There is considerable peritoneal fluid. This is likely related to peritoneal dialysis. A tiny bubble of air is seen in the fluid adjacent to the do me of the liver on image 13. A peritoneal dialysis catheter is present APPENDIX: Not identified. PELVIS, BLADDER, AND ABDOMINAL WALL:No abnormal masses. No free fluid. Bladder normal. BONES: No significant findings. OTHER: No other significant finding. IMPRESSION: There is free fluid in the abdomen. This may be secondary to peritoneal dialysis. A co uple tiny gallstones are present. COMMENT: Quality ID # [id number]: Final reports with documentation of one or more dose reduction techniques (e.g., Automated exposure control, adjustment of the mA and/or kV according to patient size, use of iterative reconstruction technique) TECHNICAL DOCUMENTATION: JOB ID: [id number] [employer]- All Rights Reserved Reading location - IP/workstation name: [email or web address]
[2018-09-18] MEDS: CALCITRIOL 0.25 MCG CAPSULE PO SCH (19:46)
[2018-09-18] MEDS: ASPIRIN 81 MG TABLET, ENT COATED PO SCH (19:47)
[2018-09-18] MEDS ORDERED: MELATONIN 1 MG TABLET PO PRN (19:49)
[2018-09-18] MEDS: ONDANSETRON 4 MG TAB.RAPDIS PO PRN (19:49)
[2018-09-18] MEDS ORDERED: 1/2 NORMAL SALINE 1,000 ML IV ONE (19:55)
--- NOTE | 2018-09-18 21:03 | PDOC H&P ---
History of Present Illness Admission Date/PCP: 09/18/18 11:16 DALE FAIR MD History of Present Illness: PANCHO BOLAÑOS is a 52 year old male, He has end-stage renal disease on per itoneal dialysis, he came to the office this morning for evaluation of vomiting for the last few days, he was requesting for hospital admission he said he felt this is most likely from his gallstone disease, he was diagnosed previously with gallstone disease. He was admitted directly from the office to the hospital for further evaluation. Ultrasound of the gallbladder was obtained, it was negative for any gallstones there was no thickening of the gallbladder wall there was no pericholecystic fluid that would suggest inflammation of the gallbladder. The etiology of the vomiting was not clear on the basis of the ultrasound of the gallbladder, a CT scan of the pelvis and abdomen without contrast was obtained, it demonstrated fluid in the peritoneal cavity patient is on peritoneal dialysis it also showed multiple small stones in the gallbladder that was not apparent on ultrasound of the gallbladder. 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 GI Medical History: Reports: Gastroesophageal Reflux Disease Musculoskeltal Medical History: Reports: Arthritis Denies: Fibromyalgia Hematology: Reports: Anemia Past Surgical History Past Surgical History: Reports: Vascular Surgery - NONFUNCTIONING AV FISTULA GRAFTS, peritoneal dialysis catheter Social History Smoking Status: Never Smoker Frequency of Alcohol Use: None Hx Recreational Drug Use: No Drugs: None Hx Prescription Drug Abuse: No Family History Family History: DM, Hyperlipidemia, Hypertension Parental Family History Reviewed: Yes Children Family History Reviewed: Yes Sibling(s) Family History Reviewed.: Yes Medication/Allergy Home Medications: Aspirin [Aspirin EC] 81 mg PO DAILY 05/07/13 Amlodipine Besylate [Norvasc 10 mg Tablet] 10 mg PO DAILY 09/18/18 Calcitriol [Rocaltrol 0.25 Mcg Capsule] 0.25 mcg PO DAILY 09/18/18 Cinacalcet HCl [Sensipar] 180 mg PO DAILY 09/18/18 Clonidine HCl [Catapres 0.3 mg Tablet] 0.3 mg PO Q8 09/18/18 Colchicine [Colchicine 0.6 mg Tablet] 0.6 mg PO BIDP PRN 09/18/18 Folic Acid/Vitamin B Comp W-C [Nephro-Mayra Tablet] 0.8 mg PO DAILY 09/18/18 Hydralazine HCl [Apresoline 50 mg Tablet] 100 mg PO Q8 09/18/18 Insulin Glargine,Hum.rec.anlog [Lantus Insulin Inj 300 Unit/3 ml Pen] 12 unit SUBCUT QHS 09/18/18 Linaclotide [Linzess] 290 mcg PO DAILY 09/18/18 Ondansetron [Zofran Odt 4 mg Tablet] 1 tab PO Q8HP PRN MDD FILLED 09/08 FOR 5 DAY SUPPLY 09/18/18 Oxycodone HCl/Acetaminophen [Percocet 10-325 Mg Tablet] 1 each PO Q6HP PRN 09/18/18 Potassium Chloride [Klor-Con M20] 20 meq PO DAILY 09/18/18 Sevelamer Carbonate [Renvela] 2,400 mg PO .SNACKS PRN 09/18/18 Sevelamer Carbonate [Renvela] 4,000 mg PO MEALS 09/18/18 Allergies/Adverse Reactions: cefazolin sodium [From Ancef] Allergy (Verified 10/12/13 09:26) Hives Iodinated Contrast- Oral and IV Dye [IV Dye, Iodine Containing] Allergy (Verified 10/12/13 09:26) Hot Flash Tuberculin,Ppd,Multi-Puncture [From Tuberculin PPD Nathalie Test] Allergy (Verified 10/12/13 09:26) Hives Review of Systems Constitutional: ABSENT: chills, fever(s), headache(s), weight gain, weight loss Eyes: ABSENT: visual disturbances Ears: ABSENT: hearing changes Cardiovascular: ABSENT: chest pain, dyspnea on exertion, edema, orthropnea, palpitations Respiratory: ABSENT: cough, hemoptysis Gastrointestinal: PRESENT: vomiting. ABSENT: abdominal pain, constipation, diarrhea, hematemesis, hematochezia, nausea Genitourinary: ABSENT: dysuria, hematuria Musculoskeletal: ABSENT: joint swelling Integumentary: ABSENT: rash, wounds Neurological: ABSENT: abnormal gait, abnormal speech, confusion, dizziness, focal weakness, syncope Psychiatric: ABSENT: anxiety, depression, homidical ideation, suicidal ideation Endocrine: ABSENT: cold intolerance, heat intolerance, menstrual abnormalities, polydipsia, polyuria Hematologic/Lymphatic: ABSENT: easy bleeding, easy bruising, lymphadenopathy Physical Exam Vital Signs: Temp Pulse Resp BP Pulse Ox 98.7 F 96 20 132/70 H 100 09/18/18 16:00 09/18/18 16:00 09/18/18 16:00 09/18/18 16:00 09/18/18 16:00 Intake & Output 09/17/18 09/18/18 09/19/18 06:59 06:59 06:59 Intake Total 2550 Output Total 0 Balance 2550 Weight 94 kg General appearance: PRESENT: no acute distress, well-developed, well-nourished Head exam: PRESENT: atraumatic, normocephalic Eye exam: PRESENT: conjunctiva pink, EOMI, PERRLA Ear exam: PRESENT: normal external ear exam Mouth exam: PRESENT: moist, tongue midline Neck exam: PRESENT: full ROM Respiratory exam: PRESENT: clear to auscultation garret Cardiovascular exam: PRESENT: RRR, +S1, +S2 Pulses: PRESENT: normal dorsalis pedis pul, +2 pedal pulses bilateral Vascular exam: PRESENT: normal capillary refill GI/Abdominal exam: PRESENT: soft. ABSENT: ascites, diminished bowel sounds, dis tended, firm, guarding, hernia, hyperactive bowel sounds, hypoactive bowel sounds, mass, Rahman's sign, normal bowel sounds, organolmegaly, rebound, rigid, tenderness, other Rectal exam: PRESENT: deferred Neurological exam: PRESENT: alert, awake, oriented to person, oriented to place, oriented to time, oriented to situation, CN II-XII grossly intact Psychiatric exam: PRESENT: appropriate affect, normal mood Skin exam: PRESENT: dry, intact, warm Results Laboratory Results: 09/18/18 13:36 09/18/18 13:36 09/18/18 09/18/18 13:36 13:36 WBC 8.3 RBC 3.59 L Hgb 9.7 L Hct 28.9 L MCV 81 MCH 27.0 MCHC 33.5 RDW 14.3 H Plt Count 290 Seg Neutrophils % 73.8 Lymphocytes % 14.9 Monocytes % 6.9 Eosinophils % 2.9 Basophils % 1.5 Absolute Neutrophils 6.1 Absolute Lymphocytes 1.2 Absolute Monocytes 0.6 Absolute Eosinophils 0.2 Absolute Basophils 0.1 Sodium 140.8 Potassium 3.8 Chloride 94 L Carbon Dioxide 26 Anion Gap 21 H BUN 57 H Creatinine 19.32 H Est GFR ( Amer) 3 L Est GFR (Non-Af Amer) 3 L Glucose 102 Calcium 9.2 Total Bilirubin 0.6 AST 45 ALT 46 Alkaline Phosphatase 137 H Total Protein 8.3 H Albumin 4.4 Impressions: Abdomen Ultrasound 09/18/18 00:00 IMPRESSION: There appears to be some gallbladder sludge. No gallstones. Chest X-Ray 09/18/18 00:00 IMPRESSION: NO ACUTE RADIOGRAPHIC FINDING IN THE CHEST. Abdomen/Pelvis CT 09/18/18 17:30 IMPRESSION: There is free fluid in the abdomen. This may be secondary to peritoneal dialysis. A couple tiny gallstones are present. Assessment & Plan - Diagnosis (1) Intractable vomiting Qualifiers: Vomiting type: unspecified Is this a current diagnosis for this admission?: Yes Plan: The differential diagnosis is very long, patient said he is not able to keep any food down or even water down, the ultrasound that was done did not demonstrate any gallstones, CT scan of the pelvis and abdomen without contrast was obtained for the evaluation of the vomiting, the CT scan demonstrated small stones in the gallbladder and also ascites fluid, the translator said there was no evidence of spontaneous bacterial peritonitis couple of days ago when abdominal paracentesis was done. (2) Cholelithiases Qualifiers: Cholelithiasis location: gallbladder Cholecystitis presence: without cholecystitis Biliary obstruction: without biliary obstruction Qualified Code(s): K80.20 - Calculus of gallbladder without cholecystitis without obstruction Is this a current diagnosis for this admission?: Yes Plan: CT scan showed small gallstones, HIDA scan will be obtained, and also consultation from surgery (3) End-stage renal disease on peritoneal dialysis Is this a current diagnosis for this admission?: Yes Plan: Per nephrology (4) Type 2 diabetes mellitus Qualifiers: Diabetes mellitus penitentiary insulin use: with penitentiary use Diabetes mellitus complication status: with kidney complications Diabetes mellitus complication detail: with chronic kidney disease Chronic kidney disease stage: on chronic dialysis Qualified Code(s): E11.22 - Type 2 diabetes mellitus with diabetic chronic kidney disease; N18.6 - End stage renal disease; 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
[2018-09-18] MEDS ORDERED: CLONIDINE HCL 0.1 MG TABLET PO SCH (22:00)
--- NOTE | 2018-09-18 23:14 | PDOC CONSULTATION ---
Consultation Consult Date: 09/18/18 Attending physician:: DALE STOVALL Consult reason:: I was asked to see the patient for management of his peritoneal dialysis and evaluation of vomiting and occasional abdominal pain. History of Present Illness Admission Date/PCP: 09/18/18 11:16 DALE STOVALL MD History of Present Illness: PANCHO BOLAÑOS is a 52 year old male with history of end-stage renal disease on peritoneal dialysis who was admitted by from his office due to intr actable vomiting. Patient stated for the last couple weeks has been having vomiting and unable to keep anything down. He was in the emergency room last week and was diagnosed with possible pancreatitis or gallstones and was discharged home. Today he went to Dr. Stovall's office and request to be admitted to the hospital for further workup and management. He admits a little bit of chills but denies any fever nor diarrhea. He said he is unable to eat because he throws up after eating. He tried Gatorade but he also throws up after that. He has occasional left flank pain. He denies any cough, colds, chest pains no shortness of breath. He had a EGD few years ago with Dr. Burton and colonoscopy last July [address] Dalton which was good. So far he has been losing weight for the last 3 weeks approximately 14 pounds. He was tested for peritonitis for his PD fluid last week and that came out to be negative for peritonitis. He was also treated with clindamycin for a dental abscess last week. He said he does not have any problem with his peritoneal dialysis as of this point. Past Medical History Cardiac Medical History: Reports: Coronary Artery Disease, Hyperlipidemia, Pulmonary Embolism Pulmonary Medical History: Reports: Chronic Obstructive Pulmonary Disease (COPD), Sleep Apnea - On CPAP at night Endocrine Medical History: Reports: Diabetes Mellitus Type 2 Renal/ Medical History: Reports: 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 recurred GI Medical History: Reports: Gastroesophageal Reflux Disease Musculoskeltal Medical History: Reports: Arthritis Hematology Medical History: Reports Anemia of Chronic Kidney Disease Past Surgical History Past Surgical History: Reports: Dialysis Access Surgery AVF, Dialysis Access Surgery AVG, Renal Transplant, Vascular Surgery - peritoneal dialysis catheter Social History Information Source: Patient Smoking Status: Never Smoker Frequency of Alcohol Use: None Hx Recreational Drug Use: No Drugs: None Hx Prescription Drug Abuse: No Family History Family History: DM - Sister, Hypertension - Sister Family History: No kidney disease in the family Parental Family History Reviewed: Yes Children Family History Reviewed: Yes Sibling(s) Family History Reviewed.: Yes Medication/Allergy Home Medications: Aspirin [Aspirin EC] 81 mg PO DAILY 05/07/13 Amlodipine Besylate [Norvasc 10 mg Tablet] 10 mg PO DAILY 09/18/18 Calcitriol [Rocaltrol 0.25 Mcg Capsule] 0.25 mcg PO DAILY 09/18/18 Cinacalcet HCl [Sensipar] 180 mg PO DAILY 09/18/18 Clonidine HCl [Catapres 0.3 mg Tablet] 0.3 mg PO Q8 09/18/18 Colchicine [Colchicine 0.6 mg Tablet] 0.6 mg PO BIDP PRN 09/18/18 Folic Acid/Vitamin B Comp W-C [Nephro-Mayra Tablet] 0.8 mg PO DAILY 09/18/18 Hydralazine HCl [Apresoline 50 mg Tablet] 100 mg PO Q8 09/18/18 Insulin Glargine,Hum.rec.anlog [Lantus Insulin Inj 300 Unit/3 ml Pen] 12 unit SUBCUT QHS 09/18/18 Linaclotide [Linzess] 290 mcg PO DAILY 09/18/18 Ondansetron [Zofran Odt 4 mg Tablet] 1 tab PO Q8HP PRN MDD FILLED 09/08 FOR 5 DAY SUPPLY 09/18/18 Oxycodone HCl/Acetaminophen [Percocet 10-325 Mg Tablet] 1 each PO Q6HP PRN 09/18/18 Potassium Chloride [Klor-Con M20] 20 meq PO DAILY 09/18/18 Sevelamer Carbonate [Renvela] 2,400 mg PO .SNACKS PRN 09/18/18 Sevelamer Carbonate [Renvela] 4,000 mg PO MEALS 09/18/18 Allergies/Adverse Reactions: cefazolin sodium [From Anc] Allergy (Verified 10/12/13 09:26) Hives Iodinated Contrast- Oral and IV Dye [IV Dye, Iodine Containing] Allergy (Verified 10/12/13 09:26) Hot Flash Tuberculin,Ppd,Multi-Puncture [From Tuberculin PPD Nathalie Test] Allergy (Verified 10/12/13 09:26) Hives Review of Systems All systems: reviewed and no additional remarkable complaints except as stated Review of Systems: Constitutional: ABSENT: chills, fatigue, fever(s), headache(s), weight gain; admits weight loss Eyes: ABSENT: visual disturbances Ears: ABSENT: hearing changes Cardiovascular: ABSENT: chest pain, dyspnea on exertion, edema, orthropnea, palpitations Respiratory: ABSENT: cough, dyspnea, hemoptysis Gastrointestinal: ABSENT: constipation, diarrhea, hematemesis, hematochezia, nausea; admits to intractable vomiting and occasional left flank abdominal pain Genitourinary: ABSENT: dysuria, hematuria Musculoskeletal: ABSENT: joint swelling Integumentary: ABSENT: rash, wounds Neurological: ABSENT: abnormal gait, abnormal speech, confusion, dizziness, focal weakness, numbness, syncope Psychiatric: ABSENT: anxiety, depression Endocrine: ABSENT: cold intolerance, heat intolerance, polydipsia, polyuria Hematologic/Lymphatic: ABSENT: easy bleeding, easy bruising, lymphadenopathy Physical Exam Vital Signs: Temp Pulse Resp BP Pulse Ox 98.6 F 97 20 149/81 H 97 09/18/18 20:00 09/18/18 21:17 09/18/18 20:00 09/18/18 21:17 09/18/18 20:00 Intake & Output 09/17/18 09/18/18 09/19/18 06:59 06:59 06:59 Intake Total 5050 Output Total 2100 Balance 2950 Weight 94 kg Exam: General appearance: No acute distress, cooperative, well-developed, well- nourished Head exam: PRESENT: atraumatic, normocephalic Eye exam: PRESENT: Conjunctiva [place], EOMI, PERRLA. ABSENT: conjunctival injection, scleral icterus Mouth exam: PRESENT: moist, neck supple, tongue midline Neck exam: PRESENT: full ROM. ABSENT: carotid bruit, JVD, lymphadenopathy, thyromegaly Respiratory exam: PRESENT: clear to auscultation bilaterally. ABSENT: rales, rhonchi, stridor, wheezes Cardiovascular exam: PRESENT: RRR, +S1, +S2. ABSENT: systolic murmur Pulses: PRESENT: normal radial pulses, normal dorsalis pedis pulses GI/Abdominal exam: PRESENT: normal bowel sounds, soft. ABSENT: guarding, mass, tenderness Rectal exam: Deferred Extremities exam: PRESENT: full ROM. ABSENT: calf tenderness, pedal edema Musculoskeletal: PRESENT: full ROM. ABSENT: deformity Neurological exam: PRESENT: alert, Awake, Oriented to person, Oriented to place, Oriented to time, reflexes normal, CN II-XII grossly intact. ABSENT: motor sensory deficit Psychiatric exam: PRESENT: appropriate affect, normal mood. ABSENT: homicidal ideation, suicidal ideation Skin exam: PRESENT: intact, dry, warm. Fair skin turgor ABSENT: rash Results Laboratory Results: 09/18/18 13:36 09/18/18 13:36 09/18/18 09/18/18 13:36 13:36 WBC 8.3 RBC 3.59 L Hgb 9.7 L Hct 28.9 L MCV 81 MCH 27.0 MCHC 33.5 RDW 14.3 H Plt Count 290 Seg Neutrophils % 73.8 Lymphocytes % 14.9 Monocytes % 6.9 Eosinophils % 2.9 Basophils % 1.5 Absolute Neutrophils 6.1 Absolute Lymphocytes 1.2 Absolute Monocytes 0.6 Absolute Eosinophils 0.2 Absolute Basophils 0.1 Sodium 140.8 Potassium 3.8 Chloride 94 L Carbon Dioxide 26 Anion Gap 21 H BUN 57 H Creatinine 19.32 H Est GFR ( Amer) 3 L Est GFR (Non-Af Amer) 3 L Glucose 102 Calcium 9.2 Total Bilirubin 0.6 AST 45 ALT 46 Alkaline Phosphatase 137 H Total Protein 8.3 H Albumin 4.4 Impressions: Abdomen Ultrasound 09/18/18 00:00 IMPRESSION: There appears to be some gallbladder sludge. No gallstones. Chest X-Ray 09/18/18 00:00 IMPRESSION: NO ACUTE RADIOGRAPHIC FINDING IN THE CHEST. Abdomen/Pelvis CT 09/18/18 17:30 IMPRESSION: There is free fluid in the abdomen. This may be secondary to peritoneal dialysis. A couple tiny gallstones are present. Assessment & Plan - Diagnosis (1) Intractable vomiting Qualifiers: Vomiting type: unspecified Is this a current diagnosis for this admission?: Yes Plan: Etiology uncertain. Abdominal ultrasound and CT scan of the abdomen only shows gallbladder stones without evidence of cholecystitis. Dr. stovall ordered HIDA scan and surgery consult. No evidence of peritonitis. (2) End-stage renal disease on peritoneal dialysis Is this a current diagnosis for this admission?: Yes Plan: We will continue CAPD while here in the hospital. We will do 5 exchanges, with 3 L fill volume, and we will use 1.5% diagonal solution for now since he seems to be volume depleted at this point. I will also give him a liter of 0.45 saline at 100 mL an hour. (3) Dehydration Is this a current diagnosis for this admission?: Yes Plan: Give IV fluids as above. (4) Hypertension Is this a current diagnosis for this admission?: Yes Plan: We will give parameters to hold blood pressure medications if the blood pressure is relatively low due to volume depletion. (5) Cholelithiases Qualifiers: Cholelithiasis location: gallbladder Cholecystitis presence: without cholecystitis Biliary obstruction: without biliary obstruction Qualified Code(s): K80.20 - Calculus of gallbladder without cholecystitis without obstruction Is this a current diagnosis for this admission?: Yes (6) Anemia in chronic kidney disease (CKD) Is this a current diagnosis for this admission?: Yes Plan: We will give Procrit as necessary. (7) Obstructive sleep apnea Is this a current diagnosis for this admission?: Yes Plan: Continue CPAP during sleep. Melatonin 1 mg nightly as needed for sleep. 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 Assessment and plan discussed with Dr. Stovall. - Time Time Spent: 50 to 70 Minutes
[2018-09-19] MEDS: HYDRALAZINE HCL 50 MG TABLET PO SCH ×4 (01:40→21:06)
[2018-09-19] MEDS: SEVELAMER HCL 800 MG TABLET PO SCH ×4 (01:42→16:49)
[2018-09-19] MEDS: POTASSIUM CHLORIDE 10 MEQ CAPSULE.ER PO SCH ×2 (01:57→12:03)
[2018-09-19] MEDS: CINACALCET HCL 30 MG TABLET PO SCH ×2 (01:57→12:06)
[2018-09-19] MEDS: FOLIC ACID/VITAMIN B COMP W-C CAPSULE PO SCH ×2 (01:57→12:03)
[2018-09-19] MEDS ORDERED: POTASSIUM CHLORIDE 10 MEQ CAPSULE.ER PO ONE (02:00)
[2018-09-19] MEDS ORDERED: FOLIC ACID/VITAMIN B COMP W-C CAPSULE PO ONE (02:00)
[2018-09-19] MEDS ORDERED: CINACALCET HCL 30 MG TABLET PO ONE (02:00)
[2018-09-19] MEDS: INSULIN GLARGINE,HUM.REC.ANLOG 300 UNIT/3 ML INSULN.PEN SUBCUT SCH ×2 (02:08→21:07)
--- NOTE | 2018-09-19 02:22 | RADIOLOGY REPORT (SQ) ---
EXAM DESCRIPTION: NM HEPATOBILIARY WITH PHARM COMPLETED DATE/TME: 09/18/2018 00:00 CLINICAL HISTORY: 52 years Male, ? cholecystitis COMPARISON: Ultrasound and CT, 09/18/2018. RADIONUCLIDE AND DOSE: 5.25-mCi of Tc99m mebrofenin IV. 1.9 mcg CCK, diluted to 10 mL, IV over four minutes. LIMITATIONS: Technologist notes, "patient's symptoms were reproduced. Patient refused to complete study. "Ejection fraction not obtained. Findings Hepatic transit time: Normal. Excretion into small bowel: Normal. Gallbladder: Normal uptake. No evidence of cholecystitis. Ejection fraction: Not obtained. Other findings: Asymmetric early increased left hepatic uptake of radiopharmaceutical which may indicate hepatobiliary dysfunction. Symptoms including three out of five nausea reproduced with CCK administration. Cholelithiasis/gallbladder sludge, based on corresponding CT and ultrasound. Impression 1. No evidence of cholecystitis. Gallbladder sludge/punctate cholelithiasis, based on corresponding CT and ultrasound. 2. Symptoms including three out of five nausea reproduced with CCK administration. 3. Possible functional hepatobiliary disease. Ejection fraction not obtained due to patient refusal at this time due to symptoms.
[2018-09-19] MEDS: CLONIDINE HCL 0.1 MG TABLET PO SCH ×3 (06:55→21:05)
[2018-09-19] MEDS: ONDANSETRON HCL INJ/PF 4 MG/2 ML SDV IV PRN (07:07)
[2018-09-19] MEDS: OXYCODONE-ACETAMINOPHEN 5-325 MG TABLET PO PRN ×2 (07:07→21:06)
--- NOTE | 2018-09-19 09:43 | PDOC CONSULTATION ---
Consultation Consult reason:: nausea and vomititng History of Present Illness Admission Date/PCP: 09/18/18 11:16 DALE FAIR MD History of Present Illness: PANCHO BOLAÑOS is a 52 year old male with HTN, diabetes, stroke, ESRD on PD, curently admitted for 2 weeks of nausea and vomiting which has now gresolved. The patient feels hungrym denies vomiting at this time, change of bowel function, fever, or abdominal pain. Past Medical History Cardiac Medical History: Reports: Congestive Heart Failure, Coronary Artery Disease, Hyperlipidema, Hypertension, Pulmonary Embolism Denies: Atrial Fibrillation, Myocardial Infarction, Peripheral Vascular Disease, Heart Murmur Pulmonary Medical History: Reports: Chronic Obstructive Pulmonary Disease (COPD), Sleep Apnea - On CPAP at night Denies: Asthma, Bronchitis, Pneumonia, Respiratory Failure, Tuberculosis Neurological Medical History: Denies: Seizures Endocrine Medical History: Reports: Diabetes Mellitus Type 1, Diabetes Mellitus Type 2 Denies: Hyperthyroidism, Hypothyroidism Renal/ Medical History: Reports: 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 Malignancy Medical History: Denies: Leukemia, Lung Cancer GI Medical History: Reports: Gastroesophageal Reflux Disease Denies: Crohn's Disease, Hiatal Hernia Musculoskeltal Medical History: Reports: Arthritis Denies: Fibromyalgia Psychiatric Medical History: Denies: Dementia, Depression Hematology: Reports: Anemia Denies: Hemophilia, Sickle Cell Disease Infectious Medical History: Denies: HIV Past Surgical History Past Surgical History: Reports: Renal Transplant, Vascular Surgery - peritoneal dialysis catheter Denies: Appendectomy, Cholecystectomy, Colostomy, Coronary Artery Bypass Graft, Gastric Bypass Surgery, Herniorrhaphy, Pacemaker, Tonsillectomy Social History Smoking Status: Never Smoker Frequency of Alcohol Use: None Hx Recreational Drug Use: No Drugs: None Hx Prescription Drug Abuse: No Family History Family History: DM, Hyperlipidemia, Hypertension Parental Family History Reviewed: Yes - see above Children Family History Reviewed: Yes Sibling(s) Family History Reviewed.: Yes Medication/Allergy Home Medications: Aspirin [Aspirin EC] 81 mg PO DAILY 05/07/13 Amlodipine Besylate [Norvasc 10 mg Tablet] 10 mg PO DAILY 09/18/18 Calcitriol [Rocaltrol 0.25 Mcg Capsule] 0.25 mcg PO DAILY 09/18/18 Cinacalcet HCl [Sensipar] 180 mg PO DAILY 09/18/18 Clonidine HCl [Catapres 0.3 mg Tablet] 0.3 mg PO Q8 09/18/18 Colchicine [Colchicine 0.6 mg Tablet] 0.6 mg PO BIDP PRN 09/18/18 Folic Acid/Vitamin B Comp W-C [Nephro-Mayra Tablet] 0.8 mg PO DAILY 09/18/18 Hydralazine HCl [Apresoline 50 mg Tablet] 100 mg PO Q8 09/18/18 Insulin Glargine,Hum.rec.anlog [Lantus Insulin Inj 300 Unit/3 ml Pen] 12 unit SUBCUT QHS 09/18/18 Linaclotide [Linzess] 290 mcg PO DAILY 09/18/18 Ondansetron [Zofran Odt 4 mg Tablet] 1 tab PO Q8HP PRN MDD FILLED 09/08 FOR 5 DAY SUPPLY 09/18/18 Oxycodone HCl/Acetaminophen [Percocet 10-325 Mg Tablet] 1 each PO Q6HP PRN 09/18/18 Potassium Chloride [Klor-Con M20] 20 meq PO DAILY 09/18/18 Sevelamer Carbonate [Renvela] 2,400 mg PO .SNACKS PRN 09/18/18 Sevelamer Carbonate [Renvela] 4,000 mg PO MEALS 09/18/18 Allergies/Adverse Reactions: cefazolin sodium [From Ancef] Allergy (Verified 10/12/13 09:26) Hives Iodinated Contrast- Oral and IV Dye [IV Dye, Iodine Containing] Allergy (Verified 10/12/13 09:26) Hot Flash Tuberculin,Ppd,Multi-Puncture [From Tuberculin PPD Nathalie Test] Allergy (Verified 10/12/13 09:26) Hives Physical Exam Vital Signs: Temp Pulse Resp BP Pulse Ox 97.9 F 85 16 148/70 H 92 09/19/18 08:00 09/19/18 08:00 09/19/18 08:00 09/19/18 08:00 09/19/18 08:00 Intake & Output 09/18/18 09/19/18 09/20/18 06:59 06:59 06:59 Intake Total 5050 Output Total 2100 Balance 2950 Weight 158.5 kg General appearance: PRESENT: no acute distress Head exam: PRESENT: atraumatic Eye exam: PRESENT: EOMI Mouth exam: PRESENT: moist, neck supple Neck exam: PRESENT: full ROM - c Respiratory exam: PRESENT: clear to auscultation garret Cardiovascular exam: PRESENT: RRR GI/Abdominal exam: PRESENT: soft, other - peritoneal catheter in place, no cellulitis Rectal exam: PRESENT: deferred Extremities exam: PRESENT: full ROM Musculoskeletal exam: PRESENT: full ROM Neurological exam: PRESENT: alert, awake Skin exam: PRESENT: warm Results Laboratory Results: 09/18/18 13:36 09/18/18 13:36 09/18/18 09/18/18 13:36 13:36 WBC 8.3 RBC 3.59 L Hgb 9.7 L Hct 28.9 L MCV 81 MCH 27.0 MCHC 33.5 RDW 14.3 H Plt Count 290 Seg Neutrophils % 73.8 Lymphocytes % 14.9 Monocytes % 6.9 Eosinophils % 2.9 Basophils % 1.5 Absolute Neutrophils 6.1 Absolute Lymphocytes 1.2 Absolute Monocytes 0.6 Absolute Eosinophils 0.2 Absolute Basophils 0.1 Sodium 140.8 Potassium 3.8 Chloride 94 L Carbon Dioxide 26 Anion Gap 21 H BUN 57 H Creatinine 19.32 H Est GFR ( Amer) 3 L Est GFR (Non-Af Amer) 3 L Glucose 102 Calcium 9.2 Total Bilirubin 0.6 AST 45 ALT 46 Alkaline Phosphatase 137 H Total Protein 8.3 H Albumin 4.4 Impressions: Abdomen Ultrasound 09/18/18 00:00 IMPRESSION: There appears to be some gallbladder sludge. No gallstones. Chest X-Ray 09/18/18 00:00 IMPRESSION: NO ACUTE RADIOGRAPHIC FINDING IN THE CHEST. Abdomen/Pelvis CT 09/18/18 17:30 IMPRESSION: There is free fluid in the abdomen. This may be secondary to peritoneal dialysis. A couple tiny gallstones are present. 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: with custodial use Diabetes mellitus complication status: with kidney complications Diabetes mellitus complication detail: with chronic kidney disease Chronic kidney disease stage: on chronic dialysis Qualified Code(s): E11.22 - Type 2 diabetes mellitus with diabetic chronic kidney disease; N18.6 - End stage renal disease; Z79.4 - shelter (current) use of insulin; Z99.2 - Dependence on renal dialysis Is this a current diagnosis for this admission?: Yes - Plan Summary Plan Summary: A/ 2 week hx of nausea, vomitig, now resolved patient has developed appetite this AM US GB shows sludge CT scan A/P demonstrates possible two small gallstones HIDA scan: normal, no EF done as the patient refused CCK injection Liver profile normal Physical exam unremarkable P/ No procedure or intervention planned at this time Peritoneal dialysate fluid sent for GS, CX, and cell count Recommend repeating the HIDA with ejection fraction in 3-4 weeks to rule out biliary dyskenesia Laparoscopic cholecystectomy should be considered in this patient only if there is confirmation of gallbladder disease due to the inherently possibility of postsurgical peritonitis or dialysate leak via incisions.
--- NOTE | 2018-09-19 10:16 | PDOC PROGRESS REPORT ---
Subjective Progress Note for:: 09/19/18 Subjective:: And was admitted for the abdominal pain and a gallbladder issue and currently seen by the general surgery and suggest no need for any surgical interventions repeat the HIDA scan in 3 weeks with the CCK She did have overnight issue with the PD catheter and I discussed with the nephrology and surgery is a changing right now the catheter and will send the PD fluid to rule out any infections Also wants to eat and according to the general surgery is okay to feed the p atient now Reason For Visit: PERSISTENT VOMITING, ACUTE CHOLESTATIS, ESRD Physical Exam Vital Signs: Temp Pulse Resp BP Pulse Ox 97.9 F 85 16 148/70 H 92 09/19/18 08:00 09/19/18 08:00 09/19/18 08:00 09/19/18 08:00 09/19/18 08:00 Intake & Output 09/18/18 09/19/18 09/20/18 06:59 06:59 06:59 Intake Total 5050 Output Total 2100 Balance 2950 Weight 158.5 kg General appearance: PRESENT: no acute distress, well-developed, well-nourished Head exam: PRESENT: atraumatic, normocephalic Eye exam: PRESENT: conjunctiva pink, EOMI, PERRLA. ABSENT: scleral icterus Ear exam: PRESENT: normal external ear exam Mouth exam: PRESENT: moist, tongue midline Neck exam: PRESENT: full ROM. ABSENT: carotid bruit, JVD, lymphadenopathy, thyromegaly Respiratory exam: PRESENT: clear to auscultation garret Cardiovascular exam: PRESENT: RRR. ABSENT: diastolic murmur, rubs, systolic murmur Pulses: PRESENT: normal dorsalis pedis pul, +2 pedal pulses bilateral Vascular exam: PRESENT: normal capillary refill GI/Abdominal exam: PRESENT: normal bowel sounds, soft. ABSENT: distended, guarding, mass, organolmegaly, rebound, tenderness Rectal exam: PRESENT: deferred Neurological exam: PRESENT: alert, awake, oriented to person, oriented to place, oriented to time, oriented to situation, CN II-XII grossly intact. ABSENT: motor sensory deficit Psychiatric exam: PRESENT: appropriate affect, normal mood. ABSENT: homicidal ideation, suicidal ideation Skin exam: PRESENT: dry, intact, warm. ABSENT: cyanosis, rash Results Laboratory Results: 09/18/18 13:36 09/18/18 13:36 09/18/18 09/18/18 13:36 13:36 WBC 8.3 RBC 3.59 L Hgb 9.7 L Hct 28.9 L MCV 81 MCH 27.0 MCHC 33.5 RDW 14.3 H Plt Count 290 Seg Neutrophils % 73.8 Lymphocytes % 14.9 Monocytes % 6.9 Eosinophils % 2.9 Basophils % 1.5 Absolute Neutrophils 6.1 Absolute Lymphocytes 1.2 Absolute Monocytes 0.6 Absolute Eosinophils 0.2 Absolute Basophils 0.1 Sodium 140.8 Potassium 3.8 Chloride 94 L Carbon Dioxide 26 Anion Gap 21 H BUN 57 H Creatinine 19.32 H Est GFR ( Amer) 3 L Est GFR (Non-Af Amer) 3 L Glucose 102 Calcium 9.2 Total Bilirubin 0.6 AST 45 ALT 46 Alkaline Phosphatase 137 H Total Protein 8.3 H Albumin 4.4 Impressions: Abdomen Ultrasound 09/18/18 00:00 IMPRESSION: There appears to be some gallbladder sludge. No gallstones. Chest X-Ray 09/18/18 00:00 IMPRESSION: NO ACUTE RADIOGRAPHIC FINDING IN THE CHEST. Abdomen/Pelvis CT 09/18/18 17:30 IMPRESSION: There is free fluid in the abdomen. This may be secondary to peritoneal dialysis. A couple tiny gallstones are present. 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 Diabetes mellitus complication status: with kidney complications Diabetes mellitus complication detail: with chronic kidney disease Chronic kidney disease stage: on chronic dialysis Qualified Code(s): E11.22 - Type 2 diabetes mellitus with diabetic chronic kidney disease; N18.6 - End stage renal disease; Z79.4 - alf (current) use of insulin; Z99.2 - Dependence on renal dialysis Is this a current diagnosis for this admission?: Yes - Time Time Spent with patient: 15-24 minutes Medications reviewed and adjusted accordingly: Yes Anticipated discharge: Home Within: Other - Plan Summary Plan Summary: Start the patient with a soft diet as per discussed with the nephrology change the PD catheter and is still instructed the nurses for the dialysis discussed with the patient and the and the bedside and discussed with the general surgery
[2018-09-19 10:57] LABS: FLUID TYPE PERITONEAL
[2018-09-19 10:58] LABS: FLUID SOURCE ABDOMEN
[2018-09-19 11:00] LABS: FLUID APPEARANCE CLEAR; FLUID COLOR COLORLESS; FLUID VISCOSITY LIQUID
[2018-09-19] MEDS: AMLODIPINE BESYLATE 10 MG TABLET PO SCH (12:04)
[2018-09-19] MEDS: CALCITRIOL 0.25 MCG CAPSULE PO SCH (12:21)
[2018-09-19] MEDS: ASPIRIN 81 MG TABLET, ENT COATED PO SCH (12:21)
[2018-09-19] MEDS: CEFTRIAXONE 1 GM/D5W RTU 1 GM/50 ML RTUPB IV SCH (15:13)
[2018-09-19] MEDS: ONDANSETRON 4 MG TAB.RAPDIS PO PRN (17:24)
[2018-09-19] MEDS: OXYCODONE HCL IR 5 MG TABLET PO PRN (21:06)
[2018-09-20 04:41] LABS: ABSOLUTE BASOPHILS # (AUTO) 0.1 10^3/uL (0.0-0.2); ABSOLUTE EOSINOPHILS # (AUTO) 0.7 10^3/uL (0.0-0.6); ABSOLUTE LYMPHOCYTES (AUTO) 1.8 10^3/uL (0.5-4.7); ABSOLUTE MONOCYTES (AUTO) 0.7 10^3/uL (0.1-1.4); ABSOLUTE NEUT (AUTO) 5.1 10^3/uL (1.7-8.2); BASOPHILS % (AUTO) 1.4 % (0-2); EOSINOPHILS % (AUTO) 8.1 % (0-6); HEMATOCRIT 24.2 % (37.9-51.0); HEMOGLOBIN 8.3 g/dL (13.5-17.0); LYMPHOCYTES % (AUTO) 21.5 % (13-45); MEAN CORPUSCULAR HEMOGLOBIN 27.3 pg (27.0-33.4); MEAN CORPUSCULAR HGB CONC 34.2 g/dL (32.0-36.0); MEAN CORPUSCULAR VOLUME 80 fl (80-97); MONOCYTES % (AUTO) 8.7 % (3-13); PLATELET COUNT 250 10^3/uL (150-450); RED BLOOD COUNT 3.03 10^6/uL (4.35-5.55); RED CELL DISTRIBUTION WIDTH 14.2 % (11.5-14.0); SEGMENTED NEUTROPHILS % (AUTO) 60.3 % (42-78); TOTAL CELLS COUNTED % (AUTO) 100 %; WHITE BLOOD COUNT 8.5 10^3/uL (4.0-10.5)
[2018-09-20 05:02] LABS: ALANINE AMINOTRANSFERASE 40 U/L (21-72); ALBUMIN 3.7 g/dL (3.5-5.0); ALKALINE PHOSPHATASE 116 U/L (38-126); ANION GAP 17 (5-19); ASPARTATE AMINO TRANSFERASE 35 U/L (17-59); BILIRUBIN,DIRECT 0.4 mg/dL (0.0-0.4); BILIRUBIN,TOTAL 0.4 mg/dL (0.2-1.3); BLOOD UREA NITROGEN 62 mg/dL (7-20); CALCIUM 8.7 mg/dL (8.4-10.2); CARBON DIOXIDE 26 mmol/L (22-30); CHLORIDE 95 mmol/L (98-107); GLUCOSE 105 mg/dL (75-110); POTASSIUM 3.8 mmol/L (3.6-5.0); SODIUM 137.6 mmol/L (137-145); TOTAL PROTEIN 7.1 g/dL (6.3-8.2)
[2018-09-20] MEDS: CLONIDINE HCL 0.1 MG TABLET PO SCH (06:46)
[2018-09-20] MEDS: HYDRALAZINE HCL 50 MG TABLET PO SCH (06:47)
[2018-09-20] MEDS: OXYCODONE HCL IR 5 MG TABLET PO PRN (06:50)
[2018-09-20] MEDS: OXYCODONE-ACETAMINOPHEN 5-325 MG TABLET PO PRN (06:50)
[2018-09-20] MEDS: SEVELAMER HCL 800 MG TABLET PO SCH ×2 (09:37→12:35)
[2018-09-20] MEDS: POTASSIUM CHLORIDE 10 MEQ CAPSULE.ER PO SCH (09:38)
[2018-09-20] MEDS: FOLIC ACID/VITAMIN B COMP W-C CAPSULE PO SCH (09:39)
[2018-09-20] MEDS: CINACALCET HCL 30 MG TABLET PO SCH (09:39)
[2018-09-20] MEDS: CALCITRIOL 0.25 MCG CAPSULE PO SCH (09:40)
[2018-09-20] MEDS: ASPIRIN 81 MG TABLET, ENT COATED PO SCH (09:40)
[2018-09-20] MEDS: AMLODIPINE BESYLATE 10 MG TABLET PO SCH (09:40)
[2018-09-20 10:58] VITALS: BP 101/50
[2018-09-20] MEDS ORDERED: EPOETIN ALFA INJ 20,000 UNIT/1 ML VIAL (ONCOLOGY) SUBCUT ONE (13:00)
--- NOTE | 2018-09-20 13:05 | PDOC DISCHARGE SUMMARY ---
General - Admit/Disc Date/PCP Admission Date/Primary Care Provider: 09/18/18 11:16 DALE FAIR MD Discharge Date: 09/20/18 - Discharge Diagnosis (1) End-stage renal disease on peritoneal dialysis Is this a current diagnosis for this admission?: Yes Summary: Currently follow with the Dr. Myers nephrology and getting the PD dialysis (2) Gallbladder sludge Is this a current diagnosis for this admission?: Yes Summary: Follow outpatients surgery (3) Intractable vomiting Is this a current diagnosis for this admission?: Yes Summary: Currently all resolved (4) Type 2 diabetes mellitus Is this a current diagnosis for this admission?: Yes Summary: Currently all stable - Additional Information Discharge Diet: Cardiac Discharge Activity: Activity As Tolerated Home Medications: Aspirin [Aspirin EC] 81 mg PO DAILY 05/07/13 Amlodipine Besylate [Norvasc 10 mg Tablet] 10 mg PO DAILY 09/18/18 Calcitriol [Rocaltrol 0.25 mcg Capsule] 0.25 mcg PO DAILY 09/18/18 Cinacalcet HCl [Sensipar 90 mg Tablet] 180 mg PO DAILY 09/18/18 Clonidine HCl [Catapres 0.3 mg Tablet] 0.3 mg PO Q8 09/18/18 Colchicine [Colchicine 0.6 mg Tablet] 0.6 mg PO BIDP PRN 09/18/18 Folic Acid/Vitamin B Comp W-C [Nephro-Mayra Tablet] 0.8 mg PO DAILY 09/18/18 Hydralazine HCl [Apresoline 50 mg Tablet] 100 mg PO Q8 09/18/18 Insulin Glargine,Hum.rec.anlog [Lantus Insulin 100 Unit/mL] 12 unit SUBCUT QHS 09/18/18 Linaclotide [Linzess] 290 mcg PO DAILY 09/18/18 Ondansetron [Zofran Odt 4 mg Tablet] 1 tab PO Q8HP PRN MDD FILLED 09/08 FOR 5 DAY SUPPLY 09/18/18 Oxycodone HCl/Acetaminophen [Percocet 10-325 mg Tablet] 1 each PO Q6HP PRN 09/18/18 Potassium Chloride [Klor-Con M20] 20 meq PO DAILY 09/18/18 Sevelamer Carbonate [Renvela] 2,400 mg PO .SNACKS PRN 09/18/18 Sevelamer Carbonate [Renvela] 4,000 mg PO MEALS 09/18/18 History of Present Illness History of Present Illness: PANCHO BOLAÑOS is a 52 year old male This is a 52-year-old male went to Dr. Fair's office with a complaint of abdominal pain and he feels like a gallbladder disease with the patient have a history of the gallstone in the past and admitting in the hospital for further evaluations Hospital Course Hospital Course: This is a 52-year-old male with end-stage renal disease currently on peritoneal dialysis went to the Dr. Fair's office with a complaining of abdominal pain and feels like a gallbladder disease and admitting in the hospital Patient's a CT scan of the abdomen and pelvis with a small gallstones but the ultrasound of the abdomen shows the gallbladder sludge and a HIDA scan is all stable without cholecystitis Surgical evaluations done and according to the surgeon patient's does not need any surgical interventions and the patient is to repeat the HIDA scan with ejection fractions in 3-4 weeks Start the p.o. intake patient is doing well Patient expressed to wants to go home Patient had anemia from chronic kidney disease giving the Epogen injections as scheduled Discussed with the patient and the Also patient's PD catheter kit was changed by the surgery and the patient initial fluid was all negative and discussed with the nephrology and suggest to discharge home and follow outpatients Discussed with the patient and the if the patient have any abdominal pain any nausea vomiting following the ER Physical Exam Vital Signs: Temp Pulse Resp BP Pulse Ox 98.1 F 73 12 101/50 L 96 09/20/18 12:21 09/20/18 12:21 09/20/18 12:21 09/20/18 12:21 09/20/18 12:21 Intake & Output 09/19/18 09/20/18 09/21/18 06:59 06:59 06:59 Intake Total 5050 9103 2700 Output Total 2100 7000 2400 Balance 2950 2103 300 Weight 158.5 kg 158 kg 95.5 kg General appearance: PRESENT: no acute distress, well-developed, well-nourished Head exam: PRESENT: atraumatic, normocephalic Eye exam: PRESENT: conjunctiva pink, EOMI, PERRLA. ABSENT: scleral icterus Ear exam: PRESENT: normal external ear exam Mouth exam: PRESENT: moist, tongue midline Neck exam: PRESENT: full ROM. ABSENT: carotid bruit, JVD, lymphadenopathy, thyromegaly Respiratory exam: PRESENT: clear to auscultation garret Cardiovascular exam: PRESENT: RRR. ABSENT: diastolic murmur, rubs, systolic murmur Pulses: PRESENT: normal dorsalis pedis pul, +2 pedal pulses bilateral Vascular exam: PRESENT: normal capillary refill GI/Abdominal exam: PRESENT: normal bowel sounds, soft. ABSENT: distended, guarding, mass, organolmegaly, rebound, tenderness Additonal comments: PD catheter is intact Rectal exam: PRESENT: deferred Musculoskeletal exam: PRESENT: ambulatory Neurological exam: PRESENT: alert, awake, oriented to person, oriented to place, oriented to time, oriented to situation, CN II-XII grossly intact. ABSENT: motor sensory deficit Psychiatric exam: PRESENT: appropriate affect, normal mood. ABSENT: homicidal ideation, suicidal ideation Skin exam: PRESENT: dry, intact, warm. ABSENT: cyanosis, rash Results Laboratory Results: 09/20/18 04:28 09/20/18 04:28 09/20/18 09/20/18 04:28 04:28 WBC 8.5 RBC 3.03 L Hgb 8.3 L Hct 24.2 L MCV 80 MCH 27.3 MCHC 34.2 RDW 14.2 H Plt Count 250 Seg Neutrophils % 60.3 Lymphocytes % 21.5 Monocytes % 8.7 Eosinophils % 8.1 H Basophils % 1.4 Absolute Neutrophils 5.1 Absolute Lymphocytes 1.8 Absolute Monocytes 0.7 Absolute Eosinophils 0.7 H Absolute Basophils 0.1 Sodium 137.6 Potassium 3.8 Chloride 95 L Carbon Dioxide 26 Anion Gap 17 BUN 62 H Creatinine 19.05 H Est GFR ( Amer) 3 L Est GFR (Non-Af Amer) 3 L Glucose 105 Calcium 8.7 Total Bilirubin 0.4 AST 35 ALT 40 Alkaline Phosphatase 116 Total Protein 7.1 Albumin 3.7 Impressions: Abdomen Ultrasound 09/18/18 00:00 IMPRESSION: There appears to be some gallbladder sludge. No gallstones. Chest X-Ray 09/18/18 00:00 IMPRESSION: NO ACUTE RADIOGRAPHIC FINDING IN THE CHEST. Abdomen/Pelvis CT 09/18/18 17:30 IMPRESSION: There is free fluid in the abdomen. This may be secondary to peritoneal dialysis. A couple tiny gallstones are present. Qualifiers - * PATIENT BEING DISCHARGED WITH ANY OF THE FOLLOWING DIAGNOSIS: No VTE patient discharged on overlapping Therapy?: Yes Plan Time Spent: Greater than 30 Minutes - Continues to current medication Follow outpatient nephrology and outpatient surgery
== END 2018-09-20 12:59 | disposition home or self-care (01) | DRG 444 ==
LOC: 3W 11:16
PROVIDERS: ADMIT Internal Medicine; ATTEND Internal Medicine
DX: K82.8 Other specified diseases of gallbladder (principal); N18.6 End stage renal disease; T86.12 Kidney transplant failure; Z94.0 Kidney transplant status; I12.0 Hypertensive chronic kidney disease with stage 5 chronic kidney disease or end stage renal disease; E11.22 Type 2 diabetes mellitus with diabetic chronic kidney disease; D63.1 Anemia in chronic kidney disease; E86.0 Dehydration; E11.65 Type 2 diabetes mellitus with hyperglycemia; K21.9 Gastro-esophageal reflux disease without esophagitis; K80.20 Calculus of gallbladder without cholecystitis without obstruction; I25.10 Atherosclerotic heart disease of native coronary artery without angina pectoris; E78.5 Hyperlipidemia, unspecified; J44.9 Chronic obstructive pulmonary disease, unspecified; G47.33 Obstructive sleep apnea (adult) (pediatric); Z99.2 Dependence on renal dialysis; Z79.82 Long term (current) use of aspirin; Z79.4 Long term (current) use of insulin; Z79.891 Long term (current) use of opiate analgesic; Z79.899 Other long term (current) drug therapy
CPT/HCPCS: 36415; 71046; 74176; 76705; 78227; 80048; 80076; 82962; 85025; 87070; 87075; 87205; 89050; 90945; 90947; 94660; A9537; J0696; J0885; J1815; J2405; J2805; J3490; Q9969; S0119

== ENCOUNTER → 2019-03-19 | Outpatient (CLI) | payer MEDICARE, MEDICAID ==
[2019-03-19 09:44] LABS: GENTAMICIN-TROUGH 1.3 ug/mL (<2.0)
== END ==
LOC: DAVITANR 07:57
PROVIDERS: ATTEND Internal Medicine Nephrology
DX: K65.9 Peritonitis, unspecified (principal)
CPT/HCPCS: 80170

== ENCOUNTER → 2019-03-23 | Outpatient (CLI) | payer MEDICARE, MEDICAID ==
[2019-03-23 10:03] LABS: VANCOMYCIN,TROUGH 20.8 ug/mL (5.0-20.0)
== END ==
LOC: DAVITANR 08:12
PROVIDERS: ATTEND Internal Medicine Nephrology
DX: K65.9 Peritonitis, unspecified (principal); Z51.81 Encounter for therapeutic drug level monitoring; Z79.2 Long term (current) use of antibiotics
CPT/HCPCS: 80170; 80202

== ENCOUNTER → 2019-03-25 | Outpatient (CLI) | payer MEDICARE, MEDICAID ==
[2019-03-25 08:57] LABS: GENTAMICIN-TROUGH 0.9 ug/mL (<2.0)
== END ==
LOC: DAVITANR 07:32
PROVIDERS: ATTEND Internal Medicine Nephrology
DX: K65.9 Peritonitis, unspecified (principal)
CPT/HCPCS: 80170; 80202

== ENCOUNTER 2019-06-05 02:05 | Emergency (ER) | payer MEDICARE, MEDICAID ==
[2019-06-05] MEDS ORDERED: ASPIRIN 81 MG TABLET, CHEWABLE PO ONE (02:11)
--- NOTE | 2019-06-05 03:01 | RADIOLOGY REPORT (SQ) ---
EXAM DESCRIPTION: XR CHEST 2 VIEWS COMPLETED DATE/TME: 06/05/2019 00:00 CLINICAL HISTORY: 53 years, Male, chest pain COMPARISON: 09/18/2018 chest NUMBER OF VIEWS: 2 view chest TECHNIQUE: Frontal and lateral views of the chest LIMITATIONS: None. FINDINGS: The heart size is normal. Subsegmental atelectasis right lung base. No pneumothorax IMPRESSION: Subsegmental atelectasis right lung base copyright 2010 [email or web address]- All Rights Reserved
[2019-06-05 03:13] LABS: ABSOLUTE BASOPHILS # (AUTO) 0.1 10^3/uL (0.0-0.2); ABSOLUTE EOSINOPHILS # (AUTO) 0.2 10^3/uL (0.0-0.6); ABSOLUTE LYMPHOCYTES (AUTO) 0.9 10^3/uL (0.5-4.7); ABSOLUTE MONOCYTES (AUTO) 0.5 10^3/uL (0.1-1.4); ABSOLUTE NEUT (AUTO) 5.8 10^3/uL (1.7-8.2); BASOPHILS % (AUTO) 0.9 % (0-2); HEMATOCRIT 43.6 % (37.9-51.0); HEMOGLOBIN 14.2 g/dL (13.5-17.0); LYMPHOCYTES % (AUTO) 11.8 % (13-45); MEAN CORPUSCULAR HEMOGLOBIN 26.1 pg (27.0-33.4); MEAN CORPUSCULAR HGB CONC 32.6 g/dL (32.0-36.0); MEAN CORPUSCULAR VOLUME 80 fl (80-97); MONOCYTES % (AUTO) 6.2 % (3-13); PLATELET COUNT 325 10^3/uL (150-450); RED BLOOD COUNT 5.44 10^6/uL (4.35-5.55); RED CELL DISTRIBUTION WIDTH 15.4 % (11.5-14.0); SEGMENTED NEUTROPHILS % (AUTO) 78.1 % (42-78); TOTAL CELLS COUNTED % (AUTO) 100 %; WHITE BLOOD COUNT 7.4 10^3/uL (4.0-10.5)
[2019-06-05 03:48] LABS: ALBUMIN 4.2 g/dL (3.5-5.0); ALKALINE PHOSPHATASE 139 U/L (38-126); ASPARTATE AMINO TRANSFERASE 35 U/L (17-59); BILIRUBIN,DIRECT 0.5 mg/dL (0.0-0.4); BILIRUBIN,TOTAL 0.5 mg/dL (0.2-1.3); BLOOD UREA NITROGEN 57 mg/dL (7-20); CALCIUM 10.1 mg/dL (8.4-10.2); CREATINE KINASE 467 U/L (55-170); GLUCOSE 158 mg/dL (75-110); TOTAL PROTEIN 8.4 g/dL (6.3-8.2)
[2019-06-05 03:53] LABS: ANION GAP 19 (5-19); CARBON DIOXIDE 29 mmol/L (22-30); CHLORIDE 92 mmol/L (98-107)
[2019-06-05 04:00] LABS: CREATINE KINASE MB 5.18 ng/mL (<4.55); POTASSIUM 2.8 mmol/L (3.6-5.0)
[2019-06-05 04:01] LABS: TROPONIN I 0.13 ng/mL
[2019-06-05] MEDS ORDERED: POTASSIUM CHLORIDE 10 MEQ CAPSULE.ER PO ONE (04:12)
[2019-06-05] MEDS ORDERED: COLCHICINE 0.6 MG TABLET PO PRN (04:41)
[2019-06-05] MEDS ORDERED: LABETALOL HCL INJ 20 MG/4 ML DISP.SYRIN IV PRN (04:46)
[2019-06-05] MEDS ORDERED: MORPHINE SULFATE 10 MG/ML INJ IV PRN ×4 (04:46→05:26)
[2019-06-05] MEDS ORDERED: ACETAMINOPHEN 325 MG TABLET PO PRN (04:46)
[2019-06-05] MEDS ORDERED: MAG HYDROX/AL HYDROX/SIMETH SUSP 30 ML UDCUP PO PRN (04:46)
[2019-06-05] MEDS ORDERED: NICOTINE 21 MG/24 HR PATCH.TD24 TD PRN (04:46)
[2019-06-05] MEDS ORDERED: MAGNESIUM HYDROXIDE SUSP 30 ML UDCUP PO PRN (04:46)
[2019-06-05] MEDS ORDERED: LEVALBUTEROL HCL NEB 0.63 MG/3 ML AMPUL NEB PRN (04:48)
[2019-06-05] MEDS ORDERED: ONDANSETRON HCL INJ/PF 4 MG/2 ML SDV IV PRN (04:48)
--- NOTE | 2019-06-05 04:59 | ER Document Report ---
ED General - General Chief Complaint: Chest Pain > 30 Stated Complaint: CHEST PAIN Time Seen by Provider: 06/05/19 03:38 TRAVEL OUTSIDE OF THE [place] IN LAST 30 DAYS: No - HPI Notes: This is a 53-year-old gentleman with a history of end-stage renal disease who gets dialysis on Tuesdays and Saturdays, who presents today with complaint of substernal chest pain. Patient states that he did have some chest tightness yesterday in the afternoon and evening. His symptoms are now completely resolved. He states he feels much better now. No pain at this time. He denies any fever or chills. He denies any recent illness. - Related Data Allergies/Adverse Reactions: cefazolin sodium [From Ancef] Allergy (Verified 10/12/13 09:26) Hives Iodinated Contrast Media [IV Dye, Iodine Containing] Allergy (Verified 10/12/13 09:26) Hot Flash Tuberculin,Ppd,Multi-Puncture [From Tuberculin PPD Nathalie Test] Allergy (Verified 10/12/13 09:26) Hives Past Medical History - Social History Smoking Status: Never Smoker Chew tobacco use (# tins/day): No Frequency of alcohol use: None Drug Abuse: None Family History: DM, Hyperlipidemia, Hypertension Patient has suicidal ideation: No Patient has homicidal ideation: No - Past Medical History Cardiac Medical History: Reports: Hx Congestive Heart Failure, Hx Coronary Artery Disease, Hx Hypercholesterolemia, Hx Hypertension, Hx Pulmonary Embolism Denies: Hx Atrial Fibrillation, Hx Heart Attack, Hx Peripheral Vascular Disease, Hx Heart Murmur Pulmonary Medical History: Reports: Hx COPD, Hx Sleep Apnea - On CPAP at night Denies: Hx Asthma, Hx Bronchitis, Hx Pneumonia, Hx Respiratory Failure, Hx Tuberculosis Neurological Medical History: Reports: Hx Cerebrovascular Accident. Denies: Hx Seizures, Hx Parkinson's Disease Endocrine Medical History: Reports: Hx Diabetes Mellitus Type 1, Hx Diabetes Mellitus Type 2. 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 Denies: Hx Benign Prostatic Hyperplasia Malignancy Medical History: Denies Hx Leukemia, Denies Hx Lung Cancer GI Medical History: Reports: Hx Gastroesophageal Reflux Disease, Hx Colonoscopy, Hx Endoscopy. Denies: Hx Crohn's Disease, Hx Hiatal Hernia, Hx Pancreatitis Musculoskeletal Medical History: Reports Hx Arthritis, Denies Hx Fibromyalgia, Reports Hx Musculoskeletal Trauma, Denies Hx Systemic Lupus Erythematosus Psychiatric Medical History: Denies: Hx Dementia, Hx Depression Infectious Medical History: Denies: Hx HIV Past Surgical History: Reports: Hx Kidney (Renal Surgery) - KIDNEY TRANSPLANT THAT WAS REJECTED thing kidney was removed, Hx Vascular Surgery - peritoneal dialysis catheter. Denies: Hx Appendectomy, Hx Cholecystectomy, Hx Colostomy, Hx Coronary Artery Bypass Graft, Hx Gastric Bypass Surgery, Hx Herniorrhaphy, Hx Pacemaker, Hx Tonsillectomy - Immunizations Immunizations up to date: Yes Hx Diphtheria, Pertussis, Tetanus Vaccination: Yes - 2009 Hx Pneumococcal Vaccination: 07/02/13 Review of Systems - Review of Systems Cardiovascular: Chest pain. denies: Palpitations, Heart racing Respiratory: denies: Cough Gastrointestinal: denies: Abdominal pain, Diarrhea, Nausea Neurological/Psychological: denies: Headaches -: Yes All other systems reviewed and negative Physical Exam - Vital signs Vitals: Temp Pulse Resp BP Pulse Ox 97.3 F 77 14 128/89 H 98 06/05/19 02:13 06/05/19 02:13 06/05/19 02:13 06/05/19 02:13 06/05/19 02:13 - General General appearance: Appears well, Alert - HEENT Head: Normocephalic, Atraumatic Eyes: Normal Pupils: PERRL - Respiratory Respiratory status: No respiratory distress Chest status: Nontender Breath sounds: Normal Chest palpation: Normal - Cardiovascular Rhythm: Regular Heart sounds: Normal auscultation Murmur: No - Abdominal Inspection: Normal Distension: No distension Bowel sounds: Normal Tenderness: Nontender Organomegaly: No organomegaly - Neurological Neuro grossly intact: Yes Cognition: Normal Orientation: AAOx4 [place] Coma Scale Eye Opening: Spontaneous [place] Scale Verbal: Oriented [place] Scale Motor: Obeys Commands [place] Coma Scale Total: 15 Speech: Normal Motor strength normal: LUE, RUE, LLE, RLE Sensory: Normal - Psychological Associated symptoms: Normal affect, Normal mood - Skin Skin Temperature: Warm Skin Moisture: Dry Skin Color: Normal Course - Re-evaluation Re-evalutation: 06/05/19 04:58 Differential diagnosis includes acute coronary syndrome versus atypical chest pain. EKG shows normal sinus rhythm at 76 bpm. Normal axis. Normal intervals. Nonspecific T wave changes. Patient reevaluated. He is asymptomatic. Troponin is elevated. There may be secondary to his renal function. We will also include his hypokalemia. Patient's care discussed with Dr. Noguera. Will admit the patient for ACS rule out. 06/05/19 04:59 I did call back from Dr. Noguera. He informed me that the patient's PCP is Dr. Garcia who admits his own pts. Call was placed to Dr. Garcia. 06/05/19 05:31 Patient's care discussed with Dr. Andrew. He recommends transfer since patient is supposed to get dialysis today and we do not do dialysis on the weekends. I discussed transfer with the patient. Patient absolutely does not want to be transferred. He is leaving AGAINST MEDICAL ADVICE. He is of sound mind. He understands the risk of leaving AGAINST MEDICAL ADVICE includes cardiac arrhythmia and if this is from an acute coronary syndrome. He promises to return if he has any further pain after dialysis today. I will give him another 20 mEq of potassium. And I advised him to have his potassium checked at dialysis also. - Vital Signs Vital signs: Temp Pulse Resp BP Pulse Ox 97.3 F 77 14 128/89 H 93 06/05/19 02:13 06/05/19 02:13 06/05/19 02:13 06/05/19 02:13 06/05/19 04:10 - Laboratory Result Diagrams: 06/05/19 02:50 06/05/19 02:50 Laboratory results interpreted by me: 06/05/19 06/05/19 06/05/19 02:50 02:50 02:50 MCH 26.1 L RDW 15.4 H Lymph % (Auto) 11.8 L Seg Neutrophils % 78.1 H Potassium 2.8 L* Chloride 92 L BUN 57 H Creatinine 17.06 H Est GFR ( Amer) 4 L Est GFR (MDRD) Non-Af 3 L Glucose 158 H Direct Bilirubin 0.5 H Alkaline Phosphatase 139 H Creatine Kinase 467 H CK-MB (CK-2) 5.18 H Total Protein 8.4 H Discharge - Discharge Clinical Impression: Precordial chest pain, Hypokalemia, End stage renal disease Condition: Stable Disposition: AGAINST MEDICAL ADVICE Instructions: Chest Pain of Unclear Cause ([facility]), Hypokalemia ([facility]) Additional Instructions: By leaving AGAINST MEDICAL ADVICE, you have expressed understanding that he could have an undiagnosed heart condition. If that is the case, you could have a heart attack and even . Follow-up with your doctor. Your potassium was also very low. Make sure that the potassium is checked again today at dialysis. Return if worse or concerns. Take an aspirin daily. Referrals: Chi LORA MD [Primary Care Provider] - Follow up tomorrow
[2019-06-05 06:00] VITALS: BP 115/74
[2019-06-05] MEDS ORDERED: HYDRALAZINE HCL 50 MG TABLET PO SCH (06:00)
[2019-06-05] MEDS ORDERED: PANTOPRAZOLE SODIUM 40 MG TABLET.DR PO SCH (06:00)
[2019-06-05] MEDS ORDERED: CLONIDINE HCL 0.1 MG TABLET PO SCH (06:00)
[2019-06-05] MEDS ORDERED: HEPARIN SOD (PORCINE) 5,000 UNIT/ML 1 ML VIAL SUBCUT SCH (06:00)
[2019-06-05] MEDS ORDERED: SEVELAMER HCL 800 MG TABLET PO SCH ×2 (08:00)
[2019-06-05] MEDS ORDERED: INSULIN REG, HUMAN 100 UNIT/ML 3 ML VIAL (PYX) SUBCUT SCH (08:00)
[2019-06-05] MEDS ORDERED: DOCUSATE SODIUM 100 MG CAPSULE PO SCH (10:00)
--- NOTE | 2019-06-05 19:18 | EKG REPORT ---
SEVERITY:- ABNORMAL ECG - SINUS RHYTHM VENTRICULAR PREMATURE COMPLEX NONSPECIFIC T ABNORMALITIES, DIFFUSE LEADS PROLONGED QT INTERVAL : Confirmed by: Shefali Lang MD 05-Jun-2019 19:17:51
[2019-06-05] MEDS ORDERED: INSULIN GLARGINE,HUM.REC.ANLOG 1,000 UNIT/10 ML VIAL SUBCUT SCH (22:00)
== END 2019-06-05 05:56 | disposition left against medical advice (07) ==
LOC: ER 02:05 → UNDOADMOB 04:41 → EH 04:41 → ER 05:56
DX: R07.2 Precordial pain (principal); E87.6 Hypokalemia; I12.0 Hypertensive chronic kidney disease with stage 5 chronic kidney disease or end stage renal disease; E11.22 Type 2 diabetes mellitus with diabetic chronic kidney disease; N18.6 End stage renal disease; Z99.2 Dependence on renal dialysis; I25.10 Atherosclerotic heart disease of native coronary artery without angina pectoris; J44.9 Chronic obstructive pulmonary disease, unspecified; Z86.711 Personal history of pulmonary embolism; Z88.1 Allergy status to other antibiotic agents; Z91.041 Radiographic dye allergy status; Z88.7 Allergy status to serum and vaccine; Z53.20 Procedure and treatment not carried out because of patient's decision for unspecified reasons
CPT/HCPCS: 93005; 36415; 82553; 82550; 85025; 80053; 84484; 71046; 93010; A9270 ×2; 99285

== ENCOUNTER 2019-06-08 03:29 | Inpatient (IN) | payer MEDICARE, MEDICAID ==
[2019-06-08 04:45] LABS: ABSOLUTE BASOPHILS # (AUTO) 0.1 10^3/uL (0.0-0.2); ABSOLUTE EOSINOPHILS # (AUTO) 0.2 10^3/uL (0.0-0.6); ABSOLUTE LYMPHOCYTES (AUTO) 0.9 10^3/uL (0.5-4.7); ABSOLUTE MONOCYTES (AUTO) 0.6 10^3/uL (0.1-1.4); ABSOLUTE NEUT (AUTO) 4.4 10^3/uL (1.7-8.2); BASOPHILS % (AUTO) 1.1 % (0-2); EOSINOPHILS % (AUTO) 3.9 % (0-6); HEMATOCRIT 37.8 % (37.9-51.0); HEMOGLOBIN 12.4 g/dL (13.5-17.0); LYMPHOCYTES % (AUTO) 13.8 % (13-45); MEAN CORPUSCULAR HEMOGLOBIN 26.2 pg (27.0-33.4); MEAN CORPUSCULAR HGB CONC 32.8 g/dL (32.0-36.0); MEAN CORPUSCULAR VOLUME 80 fl (80-97); MONOCYTES % (AUTO) 9.6 % (3-13); PLATELET COUNT 276 10^3/uL (150-450); RED BLOOD COUNT 4.73 10^6/uL (4.35-5.55); RED CELL DISTRIBUTION WIDTH 15.9 % (11.5-14.0); SEGMENTED NEUTROPHILS % (AUTO) 71.6 % (42-78); TOTAL CELLS COUNTED % (AUTO) 100 %; WHITE BLOOD COUNT 6.2 10^3/uL (4.0-10.5)
[2019-06-08 05:01] LABS: ALBUMIN 3.6 g/dL (3.5-5.0); ALKALINE PHOSPHATASE 131 U/L (38-126); ANION GAP 19 (5-19); ASPARTATE AMINO TRANSFERASE 29 U/L (17-59); BILIRUBIN,DIRECT 0.4 mg/dL (0.0-0.4); BILIRUBIN,TOTAL 0.5 mg/dL (0.2-1.3); BLOOD UREA NITROGEN 75 mg/dL (7-20); CALCIUM 10.3 mg/dL (8.4-10.2); CARBON DIOXIDE 24 mmol/L (22-30); CHLORIDE 93 mmol/L (98-107); GLUCOSE 137 mg/dL (75-110); TOTAL PROTEIN 7.4 g/dL (6.3-8.2)
[2019-06-08 05:14] LABS: POTASSIUM 2.8 mmol/L (3.6-5.0)
[2019-06-08] MEDS ORDERED: POTASSIUM CHLORIDE 10 MEQ CAPSULE.ER PO ONE (05:34)
[2019-06-08] MEDS ORDERED: POTASSI CL 20 MEQ/50 ML RIDER 20 MEQ/50 ML RTUPB IV SCH (05:45)
--- NOTE | 2019-06-08 06:35 | ER Document Report ---
ED General - General Chief Complaint: Chest Pain Stated Complaint: CHEST PAIN Time Seen by Provider: 06/08/19 06:15 Primary Care Provider: DALE FAIR MD [Primary Care Provider] - Follow up as needed TRAVEL OUTSIDE OF THE [place] IN LAST 30 DAYS: No - HPI Notes: Patient is a 53-year-old male, peritoneal dialysis patient, who presents emergency department for evaluation of chest pain. He states this been constant. It woke him. He described it as a pressure. It radiates into his shoulder blades. He really states he is not feeling very short of breath with it. He denies any associated nausea, diaphoresis, near syncope. The patient states that he is chest pain-free at the time of my evaluation. He had a negative stress test last month. He follows with Dr. Aviles, who was unaware of his chest pain at this time. Patient also notes that his dialysate was "cloudy" last night. He states he "took it to the center" where the diagnosed him as having peritonitis. He states he was started on gentamicin. He does not have any abdominal pain. On further questioning the patient has been diagnosed with hypokalemia recently. He states he was started on potassium liquid by his garment patternmaker, Dr. Mixon. He states he is not taking that regularly either, because it tastes terribly. - Related Data Allergies/Adverse Reactions: cefazolin sodium [From Ancef] Allergy (Verified 10/12/13 09:26) Hives Iodinated Contrast Media [IV Dye, Iodine Containing] Allergy (Verified 10/12/13 09:26) Hot Flash Tuberculin,Ppd,Multi-Puncture [From Tuberculin PPD Nathalie Test] Allergy (Verified 10/12/13 09:26) Hives Past Medical History - Social History Smoking Status: Former Smoker Family History: DM, Hyperlipidemia, Hypertension Patient has suicidal ideation: No Patient has homicidal ideation: No - Past Medical History Cardiac Medical History: Reports: Hx Congestive Heart Failure, Hx Coronary Artery Disease, Hx Hypercholesterolemia, Hx Hypertension, Hx Pulmonary Embolism Denies: Hx Atrial Fibrillation, Hx Heart Attack, Hx Peripheral Vascular Di sease, Hx Heart Murmur Pulmonary Medical History: Reports: Hx COPD, Hx Sleep Apnea - On CPAP at night Denies: Hx Asthma, Hx Bronchitis, Hx Pneumonia, Hx Respiratory Failure, Hx Tuberculosis Neurological Medical History: Reports: Hx Cerebrovascular Accident. Denies: Hx Seizures, Hx Parkinson's Disease Endocrine Medical History: Reports: Hx Diabetes Mellitus Type 1, Hx Diabetes Mellitus Type 2. 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 Denies: Hx Benign Prostatic Hyperplasia Malignancy Medical History: Denies Hx Leukemia, Denies Hx Lung Cancer GI Medical History: Reports: Hx Gastroesophageal Reflux Disease, Hx Colonoscopy, Hx Endoscopy. Denies: Hx Crohn's Disease, Hx Hiatal Hernia, Hx Pancreatitis Musculoskeletal Medical History: Reports Hx Arthritis, Denies Hx Fibromyalgia, Reports Hx Musculoskeletal Trauma, Denies Hx Systemic Lupus Erythematosus Psychiatric Medical History: Denies: Hx Dementia, Hx Depression Infectious Medical History: Denies: Hx HIV Past Surgical History: Reports: Hx Kidney (Renal Surgery) - KIDNEY TRANSPLANT THAT WAS REJECTED thing kidney was removed, Hx Vascular Surgery - peritoneal dialysis catheter. Denies: Hx Appendectomy, Hx Cholecystectomy, Hx Colostomy, Hx Coronary Artery Bypass Graft, Hx Gastric Bypass Surgery, Hx Herniorrhaphy, Hx Pacemaker, Hx Tonsillectomy - Immunizations Immunizations up to date: Yes Hx Diphtheria, Pertussis, Tetanus Vaccination: Yes - 2009 Hx Pneumococcal Vaccination: 07/02/13 Review of Systems - Review of Systems Constitutional: No symptoms reported EENT: No symptoms reported Cardiovascular: See HPI Respiratory: No symptoms reported Gastrointestinal: No symptoms reported Genitourinary: No symptoms reported Musculoskeletal: No symptoms reported Skin: No symptoms reported Neurological/Psychological: No symptoms reported Physical Exam - Vital signs Vitals: Temp Pulse Resp BP Pulse Ox 97.8 F 88 16 131/96 H 97 06/08/19 03:47 06/08/19 03:47 06/08/19 03:47 06/08/19 03:47 06/08/19 03:47 - Notes Notes: Vital signs reviewed, please refer to chart. Head is normocephalic, atraumatic. Pupils equal round, reactive to light. Neck is supple without meningismus. Heart is regular rate and rhythm. Lungs are clear to auscultation bilaterally. Abdomen is soft, fluid wave with PD catheter in lower abdomen. Nontender, normoactive bowel sounds throughout. Extremities without cyanosis, clubbing. Posterior calves are nontender. Peripheral pulses are equal. Skin is warm and dry. Patient is awake, alert, neurological exam is nonfocal. Course - Re-evaluation Re-evalutation: 06/08/19 06:34 Patient presents emergency department for evaluation. He is a known dialysis patient, on peritoneal dialysis. He was actually discharged AGAINST MEDICAL ADVICE because he refused transfer at his last ED visit. He was told that they do not do dialysis on the weekends, but this is in fact the peritoneal dialysis patient. He does have a significantly low potassium. Initially K rider had been ordered, but decision was made to hold this given the possibility of fluid overload in this dialysis patient. He was given oral potassium here. The importance of compliance with his potassium was stressed to the patient. Troponin was elevated, this is likely secondary to his decreased renal function. Will contact primary care in regards to next step of care. 06/08/19 06:[address] Fair regarding this patient. Again he is chest pain-free. His dialysate is due to be changed. He had a negative stress test last month. We discussed disposition of this patient, Dr. Fair will accept him to [facility] [place]. - Vital Signs Vital signs: Temp Pulse Resp BP Pulse Ox 97.8 F 88 12 198/95 H 95 06/08/19 03:47 06/08/19 03:47 06/08/19 06:01 06/08/19 06:01 06/08/19 06:01 - Laboratory Result Diagrams: 06/08/19 04:25 06/08/19 04:25 Laboratory results interpreted by me: 06/08/19 06/08/19 04:25 04:25 Hgb 12.4 L Hct 37.8 L MCH 26.2 L RDW 15.9 H Sodium 135.6 L Potassium 2.8 L* Chloride 93 L BUN 75 H Creatinine 18.65 H Est GFR ( Amer) 3 L Est GFR (MDRD) Non-Af 3 L Glucose 137 H Calcium 10.3 H Alkaline Phosphatase 131 H - Diagnostic Test Radiology reviewed: Reports reviewed Radiology results interpreted by me: 06/08/19 06:42 Chest X-Ray 06/08/19 04:37 IMPRESSION: No significant change. - EKG Interpretation by Me Additional EKG results interpreted by me: 06/08/19 06:42 Sinus mechanism with a rate of 81 bpm, PVC noted. Normal axis. Inferior T wave inversions concerning for possible ischemia, but actually improved when compared to prior study performed just a few days ago. Discharge - Discharge Clinical Impression: Hypokalemia Chest pain Qualifiers: Chest pain type: unspecified Qualified Code(s): R07.9 - Chest pain, unspecified Condition: Stable Disposition: ADMITTED INPATIENT Admitting Provider: Jose Unit Admitted: [facility] Referrals: DALE FAIR MD [Primary Care Provider] - Follow up as needed
[2019-06-08] MEDS ORDERED: ASPIRIN 81 MG TABLET, CHEWABLE PO ONE (06:41)
--- NOTE | 2019-06-08 06:41 | RADIOLOGY REPORT (SQ) ---
EXAM DESCRIPTION: XR CHEST 1 VIEW COMPLETED DATE/TME: 06/08/2019 04:37 CLINICAL HISTORY: 53 years Male, chest pain, shortness of breath COMPARISON: 3 days prior. NUMBER OF VIEWS/TECHNIQUE: 1/AP FINDINGS: Clear lungs of adequate volume, and normal cardiac silhouette. No pneumothorax. Stable bony thorax. IMPRESSION: No significant change.
--- NOTE | 2019-06-08 07:46 | EKG REPORT ---
SEVERITY:- BORDERLINE ECG - SINUS RHYTHM VENTRICULAR PREMATURE COMPLEX BORDERLINE T ABNORMALITIES, INFERIOR LEADS : Confirmed by: Nathaniel Yates MD 08-Jun-2019 07:46:12
[2019-06-08] MEDS ORDERED: HEPARIN SOD (PORCINE) 5,000 UNIT/ML 1 ML VIAL SUBCUT SCH (08:30)
[2019-06-08 11:17] LABS: CREATINE KINASE MB 3.57 ng/mL (<4.55); TROPONIN I 0.479 ng/mL
[2019-06-08] MEDS ORDERED: (PENDING PHARMACY ID) (Ergocalciferol (Vitamin D2) [Vitamin D2] 50 MCG) PO SCH (15:30)
[2019-06-08] MEDS ORDERED: (PENDING PHARMACY ID) (Oxycodone Hcl/Acetaminophen [Percocet 10-325 Mg Tablet] 1 EACH) PO PRN (15:30)
[2019-06-08] MEDS ORDERED: (PENDING PHARMACY ID) (Sevelamer Carbonate [Renvela] 2,400 MG) PO PRN (15:30)
[2019-06-08] MEDS ORDERED: (PENDING PHARMACY ID) (Clonidine Hcl [Catapres 0.3 Mg Tablet] 0.3 MG) PO SCH (15:45)
[2019-06-08] MEDS ORDERED: CLINDAMYCIN HCL 300 MG PO SCH (15:45)
[2019-06-08] MEDS ORDERED: (PENDING PHARMACY ID) (Ropinirole Hcl [Requip] 0.5 MG) PO SCH (15:45)
[2019-06-08] MEDS ORDERED: CINACALCET HCL PO SCH (15:45)
[2019-06-08] MEDS ORDERED: FOLIC ACID PO SCH (15:45)
[2019-06-08] MEDS ORDERED: VITAMIN B COMP W C PO SCH (15:45)
[2019-06-08] MEDS ORDERED: OXYCODONE HCL IR 5 MG TABLET PO PRN (16:05)
[2019-06-08] MEDS ORDERED: SEVELAMER HCL 800 MG TABLET PO PRN (16:30)
[2019-06-08] MEDS ORDERED: SEVELAMER CARBONATE 4000 MG PO SCH (17:00)
[2019-06-08 17:03] LABS: VANCOMYCIN,TROUGH 21.9 ug/mL (5.0-20.0)
[2019-06-08 17:04] LABS: GENTAMICIN-TROUGH 3.2 ug/mL (<2.0)
[2019-06-08] MEDS ORDERED: CLONIDINE HCL 0.1 MG TABLET PO ONE (17:09)
[2019-06-08 17:10] LABS: CREATINE KINASE MB 3.48 ng/mL (<4.55); TROPONIN I 0.474 ng/mL
[2019-06-08] MEDS: AMLODIPINE BESYLATE 10 MG TABLET PO SCH (17:15)
[2019-06-08] MEDS ORDERED: CLOPIDOGREL BISULFATE 300 MG TABLET PO ONE (17:43)
[2019-06-08 18:00] LABS: ABSOLUTE EOSINOPHILS # (AUTO) 0.3 10^3/uL (0.0-0.6); ABSOLUTE LYMPHOCYTES (AUTO) 0.9 10^3/uL (0.5-4.7); ABSOLUTE MONOCYTES (AUTO) 0.4 10^3/uL (0.1-1.4); ABSOLUTE NEUT (AUTO) 4.1 10^3/uL (1.7-8.2); BASOPHILS % (AUTO) 0.8 % (0-2); EOSINOPHILS % (AUTO) 5.1 % (0-6); HEMATOCRIT 38.1 % (37.9-51.0); HEMOGLOBIN 12.5 g/dL (13.5-17.0); MEAN CORPUSCULAR HEMOGLOBIN 26.1 pg (27.0-33.4); MEAN CORPUSCULAR HGB CONC 32.8 g/dL (32.0-36.0); MEAN CORPUSCULAR VOLUME 79 fl (80-97); MONOCYTES % (AUTO) 6.9 % (3-13); PLATELET COUNT 252 10^3/uL (150-450); RED CELL DISTRIBUTION WIDTH 15.4 % (11.5-14.0); SEGMENTED NEUTROPHILS % (AUTO) 71.2 % (42-78); TOTAL CELLS COUNTED % (AUTO) 100 %; WHITE BLOOD COUNT 5.8 10^3/uL (4.0-10.5)
--- NOTE | 2019-06-08 18:02 | PDOC CONSULTATION ---
Consultation Consult Date: 06/08/19 Provider Consulted: LUIS STONE Consult reason:: I was asked to see the patient due to acute peritonitis in a patient with ESRD on peritoneal dialysis. History of Present Illness Admission Date/PCP: 06/08/19 06:52 DALE FAIR MD History of Present Illness: PANCHO BOLAÑOS is a 53 year old male known to me with history of ESRD on peritoneal dialysis, coronary artery disease, diabetes mellitus type 2, and hypertension who presented himself to the emergency room because of chest pains. Patient relates that around 3 AM he woke up with a chest pressure like an elephant sitting on his chest with intensity of 3/5 with radiation to his left shoulder. It was not associated with any shortness of breath, nausea, vomiting, diaphoresis but had elevated blood pressure. He said the pain lasted for about an hour upon arrival to the emergency room. He was given aspirin upon presentation. Patient informed the emergency room provider that he had a ne gative stress test last month and follows up with Dr. Aviles, quantitative analyst. Initial evaluation significantly shows hypokalemia with potassium of 2.8. As expected he has elevated BUN of 75 and creatinine of 18.65 being a peritoneal dialysis patient. He was given oral potassium chloride of 40 mEq x 1 dose. Currently his chest pain has resolved. His blood pressure is still elevated though. He also has elevated troponin of 0.56 initially and currently 0.47. The patient was also recently diagnosed with acute peritonitis yesterday. During his first dialysis exchange yesterday morning he noted cloudy bags so he went to [facility] to reported to our peritoneal dialysis nurse. Our PD nurse communicated with Dr. Mixon who ordered to have PD cell count and cultures to be done. His cell count came out to be with elevated WBC of 1545 and neutrophils of 93%. Cultures are pending and possibly sent to [facility] lab. He was then given a dose of vancomycin 2 g and gentamicin 120 mg intraperitoneally yesterday. Patient is also supposed to have Diflucan 100 mg daily. Aside from the cloudy bag patient denies any abdominal pain. There was a note of an exit site minimal bloody drainage for which wound culture was also obtained at [facility] and was sent, results are still pending. Patient had an episode of acute peritonitis in March. He did have some sort of exit site abscess which was drained and taken cared of by surgeon, Dr. Chan at [facility] in March. In terms of the hypokalemia, this is chronic. The patient was previously on the potassium chloride tablets but does not seem to be effective so Dr. Mixon prescribed potassium chloride liquid but because it was better the patient said he has not really been taking it. Apparently the patient was in the emergency room last Friday as well for which he was also found to have hypokalemia. He was advised to be transferred at that time but he refused so he signed out AGAINST MEDICAL ADVICE. Today I encouraged him to stay and he understood the importance of staying in the hospital today. 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 Failed renal transplant, [id number], x 1 before. GI Medical History: Reports: Gastroesophageal Reflux Disease Musculoskeltal Medical History: Reports: Arthritis Hematology Medical History: Reports Anemia of Chronic Kidney Disease Past Surgical History Past Surgical History: Reports: Dialysis Access Surgery AVF, Dialysis Access Surgery AVG, Dialysis Access Surgery PD, Renal Transplant Social History Information Source: Patient Smoking Status: Former Smoker Frequency of Alcohol Use: None Hx Recreational Drug Use: No Drugs: None Hx Prescription Drug Abuse: No Family History Family History: DM - Sister, Hypertension - Sister Family History: No family history of kidney disease. Parental Family History Reviewed: Yes Children Family History Reviewed: Yes Sibling(s) Family History Reviewed.: Yes Medication/Allergy Home Medications: Aspirin [Aspirin EC] 81 mg PO DAILY 05/07/13 Amlodipine Besylate [Norvasc 10 mg Tablet] 10 mg PO DAILY 09/18/18 Calcitriol [Rocaltrol 0.25 mcg Capsule] 0.25 mcg PO DAILY 09/18/18 Cinacalcet HCl [Sensipar 90 mg Tablet] 180 mg PO DAILY 09/18/18 Clonidine HCl [Catapres 0.3 mg Tablet] 0.3 mg PO Q8 09/18/18 Folic Acid/Vitamin B Comp W-C [Nephro-Mayra Tablet] 0.8 mg PO DAILY 09/18/18 Insulin Glargine,Hum.rec.anlog [Lantus Insulin 100 Unit/mL Insulin Pen] 12 unit SUBCUT QHS 09/18/18 Oxycodone HCl/Acetaminophen [Percocet 10-325 mg Tablet] 1 each PO Q6HP PRN 09/18/18 Sevelamer Carbonate [Renvela] 2,400 mg PO .SNACKS PRN 09/18/18 Sevelamer Carbonate [Renvela] 4,000 mg PO MEALS 09/18/18 Clindamycin HCl [Cleocin 300 mg Capsule] 300 mg PO TID 06/08/19 Clotrimazole/Betamethasone Dip [Lotrisone Cream 15 gm] 1 applic TP BID 06/08/19 Diazepam [Valium 2 mg Tablet] 2 mg PO DAILYP PRN 06/08/19 Ergocalciferol (Vitamin D2) [Vitamin D2] 50 mcg PO Q14D 06/08/19 Potassium Chloride 20 meq PO DAILY 06/08/19 Pravastatin Sodium [Pravachol] 20 mg PO DAILY 06/08/19 Ropinirole HCl [Requip] 0.5 mg PO DAILY 06/08/19 Allergies/Adverse Reactions: cefazolin sodium [From Ancef] Allergy (Verified 10/12/13 09:26) Hives Iodinated Contrast Media [IV Dye, Iodine Containing] Allergy (Verified 10/12/13 09:26) Hot Flash Tuberculin,Ppd,Multi-Puncture [From Tuberculin PPD Nathalie Test] Allergy (Verified 10/12/13 09:26) Hives Review of Systems All systems: reviewed and no additional remarkable complaints except as stated Review of Systems: Constitutional: ABSENT: chills, fatigue, fever(s), headache(s), weight gain, weight loss Eyes: ABSENT: visual disturbances Ears: ABSENT: hearing changes Cardiovascular: ABSENT: Dyspnea on exertion, edema, orthropnea, palpitations; admits chest pains Respiratory: ABSENT: cough, dyspnea, hemoptysis Gastrointestinal: ABSENT: abdominal pain, constipation, diarrhea, hematemesis, hematochezia, nausea, vomiting Genitourinary: ABSENT: dysuria, hematuria Musculoskeletal: ABSENT: joint swelling Integumentary: ABSENT: rash, wounds Neurological: ABSENT: abnormal gait, abnormal speech, confusion, dizziness, fo reynold weakness, numbness, syncope Psychiatric: ABSENT: anxiety, depression Endocrine: ABSENT: cold intolerance, heat intolerance, polydipsia, polyuria Hematologic/Lymphatic: ABSENT: easy bleeding, easy bruising, lymphadenopathy Physical Exam Vital Signs: Temp Pulse Resp BP Pulse Ox 97.8 F 81 17 175/75 H 97 06/08/19 03:47 06/08/19 15:18 06/08/19 14:32 06/08/19 15:18 06/08/19 14:32 Intake & Output 06/07/19 06/08/19 06/09/19 06:59 06:59 06:59 Intake Total 12 Output Total 2500 Balance 12 -2500 Weight 86.4 kg 86.183 kg Exam: General appearance: No acute distress, cooperative, well-developed, well- nourished Head exam: PRESENT: atraumatic, normocephalic Eye exam: PRESENT: Conjunctiva slightly pale, EOMI, PERRLA. ABSENT: conjunctival injection, scleral icterus Mouth exam: PRESENT: moist, neck supple, tongue midline Neck exam: PRESENT: full ROM. ABSENT: carotid bruit, JVD, lymphadenopathy, thyromegaly Respiratory exam: PRESENT: clear to auscultation bilaterally. ABSENT: rales, rhonchi, stridor, wheezes Cardiovascular exam: PRESENT: RRR, +S1, +S2. ABSENT: systolic murmur Pulses: PRESENT: normal radial pulses, normal dorsalis pedis pulses GI/Abdominal exam: PRESENT: normal bowel sounds, soft. PD catheter in place on the left lower quadrant area. There is minute open sore on the right side of his PD catheter with very scant bloody drainage and nontender to touch ABSENT: guarding, mass, tenderness Rectal exam: Deferred Extremities exam: PRESENT: full ROM. ABSENT: calf tenderness, pedal edema Musculoskeletal: PRESENT: full ROM. ABSENT: deformity Neurological exam: PRESENT: alert, Awake, Oriented to person, Oriented to place, Oriented to time, reflexes normal, CN II-XII grossly intact. ABSENT: motor sensory deficit Psychiatric exam: PRESENT: appropriate affect, normal mood. ABSENT: homicidal ideation, suicidal ideation Skin exam: PRESENT: intact, dry, warm. ABSENT: rash Results Laboratory Results: 06/08/19 04:25 06/08/19 04:25 06/08/19 06/08/19 06/08/19 04:25 04:25 04:25 WBC 6.2 RBC 4.73 Hgb 12.4 L Hct 37.8 L MCV 80 MCH 26.2 L MCHC 32.8 RDW 15.9 H Plt Count 276 Seg Neutrophils % 71.6 Sodium 135.6 L Potassium 2.8 L* Chloride 93 L Carbon Dioxide 24 Anion Gap 19 BUN 75 H Creatinine 18.65 H Est GFR ( Amer) 3 L Glucose 137 H Calcium 10.3 H Magnesium 1.7 Total Bilirubin 0.5 AST 29 Alkaline Phosphatase 131 H Total Protein 7.4 Albumin 3.6 TSH 06/08/19 04:25 WBC RBC Hgb Hct MCV MCH MCHC RDW Plt Count Seg Neutrophils % Sodium Potassium Chloride Carbon Dioxide Anion Gap BUN Creatinine Est GFR ( Amer) Glucose Calcium Magnesium Total Bilirubin AST Alkaline Phosphatase Total Protein Albumin TSH 2.44 06/08/19 06/08/19 06/08/19 04:25 10:20 10:20 Creatine Kinase 174 H CK-MB (CK-2) 3.57 Troponin I 0.564 0.479 06/08/19 06/08/19 16:31 16:31 Creatine Kinase 159 CK-MB (CK-2) 3.48 Troponin I 0.474 Impressions: Chest X-Ray 06/08/19 04:37 IMPRESSION: No significant change. Assessment & Plan - Diagnosis (1) Chest pain Qualifiers: Chest pain type: unspecified Qualified Code(s): R07.9 - Chest pain, unspecified Is this a current diagnosis for this admission?: Yes Plan: Patient has elevated troponin with typical chest pain presentation. Defer management to Dr. Fair. (2) Peritonitis associated with peritoneal dialysis Qualifiers: Encounter type: initial encounter Qualified Code(s): T85.71XA - Infection and inflammatory reaction due to peritoneal dialysis catheter, initial encounter Is this a current diagnosis for this admission?: Yes Plan: Patient started with cloudy bag yesterday with positive PD fluid cell count consistent with acute peritonitis. He was given intraperitoneal vancomycin and gentamicin yesterday. I will recheck his vancomycin and gentamicin trough levels to see when we need to re-dose the antibiotics intraperitoneally. We will give Diflucan 100 mg daily for antifungal prophylaxis. I will also send another PD fluid Gram stain and culture here in the hospital. (3) End-stage renal disease on peritoneal dialysis Is this a current diagnosis for this admission?: Yes Plan: We will continue the patient's manual peritoneal dialysis CAPD regimen while here in the hospital. We will continue 3 L of fill volume, 5 exchanges to be done every 5 hours using 2.5% solution. Monitor ultrafiltration. Do daily exit site care. (4) Hypokalemia Is this a current diagnosis for this admission?: Yes Plan: Continue oral potassium replacement. Patient does not like the liquid potassium and wanted to go back on the tablets. (5) Anemia in chronic kidney disease (CKD) Is this a current diagnosis for this admission?: Yes Plan: Currently within acceptable limits and does not need any Procrit injection. (6) Hypertension Is this a current diagnosis for this admission?: Yes Plan: Currently uncontrolled but patient has missed 2 doses of his medications. So I am giving him clonidine 0.3 mg and amlodipine 10 mg tablets stat. Continue current blood pressure regimen. (7) Type 2 diabetes mellitus Qualifiers: Diabetes mellitus penitentiary insulin use: with superintendent terminal use Diabetes mellitus complication status: with kidney complications Diabetes mellitus complication detail: with chronic kidney disease Chronic kidney disease stage: on chronic dialysis Qualified Code(s): E11.22 - Type 2 diabetes mellitus with diabetic chronic kidney disease; N18.6 - End stage renal disease; Z79.4 - nursing home (current) use of insulin; Z99.2 - Dependence on renal dialysis Is this a current diagnosis for this admission?: Yes (8) Coronary artery disease Is this a current diagnosis for this admission?: Yes - Notes Notes: Thank you very much for this consultation. I will follow the patient with you. - Time Time Spent: Greater than 70 Minutes
[2019-06-08 19:14] LABS: INTERNATIONAL RATION (INR) 1.21; PROTHROMBIN TIME 15.4 SEC (11.4-15.4)
[2019-06-08 19:15] LABS: PARTIAL THROMBOPLASTIN TIME 34.9 SEC (23.5-35.8)
--- NOTE | 2019-06-08 19:56 | PDOC H&P ---
History of Present Illness Admission Date/PCP: 06/08/19 17:50 DALE FAIR MD History of Present Illness: PANCHO BOLAÑOS is a 53 year old male,with a history of Type 2 diabetes mellitus complicated with end-stage renal disease on maintenance peritoneal dialysis , presently diagnosed with bacterial peritonitis from outpatient on antibiotic, he came to the emergency room earlier this morning for evaluation of chest pressure, he has multiple risk factors for ischemic heart disease including end- stage renal disease on dialysis, in the emergency room a twelve-lead EKG was done, it was sinus rhythm there was no ST T wave deviation. He also stated to me that he had a stress test done in April by Dr. Aviles and that this study was negative according to the patient. The troponin was elevated at 0.5, Past Medical History Cardiac Medical History: Reports: Coronary Artery Disease, Hyperlipidema, Hypertension, Pulmonary Embolism Pulmonary Medical History: Reports: Chronic Obstructive Pulmonary Disease (COPD), Sleep Apnea - On CPAP at night Endocrine Medical History: Reports: Diabetes Mellitus Type 2 Renal/ Medical History: Reports: 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 Failed renal transplant, [id number], x 1 before. GI Medical History: Reports: Gastroesophageal Reflux Disease Musculoskeltal Medical History: Reports: Arthritis Hematology: Reports: Anemia Infectious Medical History: Denies: HIV Past Surgical History Past Surgical History: Reports: Renal Transplant, Vascular Surgery - peritoneal dialysis catheter Social History Smoking Status: Former Smoker Frequency of Alcohol Use: None Hx Recreational Drug Use: No Drugs: None Hx Prescription Drug Abuse: No - Advance Directive Resuscitation Status: Full Code Family History Family History: DM, Hyperlipidemia, Hypertension Parental Family History Reviewed: Yes Children Family History Reviewed: Yes Sibling(s) Family History Reviewed.: Yes Medication/Allergy Home Medications: Aspirin [Aspirin EC] 81 mg PO DAILY 05/07/13 Amlodipine Besylate [Norvasc 10 mg Tablet] 10 mg PO DAILY 09/18/18 Calcitriol [Rocaltrol 0.25 mcg Capsule] 0.25 mcg PO DAILY 09/18/18 Cinacalcet HCl [Sensipar 90 mg Tablet] 180 mg PO DAILY 09/18/18 Clonidine HCl [Catapres 0.3 mg Tablet] 0.3 mg PO Q8 09/18/18 Folic Acid/Vitamin B Comp W-C [Nephro-Mayra Tablet] 0.8 mg PO DAILY 09/18/18 Insulin Glargine,Hum.rec.anlog [Lantus Insulin 100 Unit/mL Insulin Pen] 12 unit SUBCUT QHS 09/18/18 Oxycodone HCl/Acetaminophen [Percocet 10-325 mg Tablet] 1 each PO Q6HP PRN 09/18/18 Sevelamer Carbonate [Renvela] 2,400 mg PO .SNACKS PRN 09/18/18 Sevelamer Carbonate [Renvela] 4,000 mg PO MEALS 09/18/18 Clindamycin HCl [Cleocin 300 mg Capsule] 300 mg PO TID 06/08/19 Clotrimazole/Betamethasone Dip [Lotrisone Cream 15 gm] 1 applic TP BID 06/08/19 Diazepam [Valium 2 mg Tablet] 2 mg PO DAILYP PRN 06/08/19 Ergocalciferol (Vitamin D2) [Drisdol 50,000 unit (1.25MG) Capsule] 50,000 unit PO Q14D 06/08/19 Potassium Chloride 20 meq PO DAILY 06/08/19 Pravastatin Sodium [Pravachol] 20 mg PO DAILY 06/08/19 Ropinirole HCl [Requip] 0.5 mg PO DAILY 06/08/19 Allergies/Adverse Reactions: cefazolin sodium [From Ancef] Allergy (Verified 10/12/13 09:26) Hives Iodinated Contrast Media [IV Dye, Iodine Containing] Allergy (Verified 10/12/13 09:26) Hot Flash Tuberculin,Ppd,Multi-Puncture [From Tuberculin PPD Nathalie Test] Allergy (Verified 10/12/13 09:26) Hives Review of Systems Constitutional: ABSENT: chills, fever(s), headache(s), weight gain, weight loss Eyes: ABSENT: visual disturbances Ears: ABSENT: hearing changes Cardiovascular: PRESENT: chest pain Respiratory: ABSENT: cough, hemoptysis Gastrointestinal: ABSENT: abdominal pain, constipation, diarrhea, hematemesis, hematochezia, nausea, vomiting Genitourinary: ABSENT: dysuria, hematuria Musculoskeletal: ABSENT: joint swelling Integumentary: ABSENT: rash, wounds Neurological: ABSENT: abnormal gait, abnormal speech, confusion, dizziness, focal weakness, syncope Psychiatric: ABSENT: anxiety, depression, homidical ideation, suicidal ideation Endocrine: ABSENT: cold intolerance, heat intolerance, menstrual abnormalities, polydipsia, polyuria Hematologic/Lymphatic: ABSENT: easy bleeding, easy bruising, lymphadenopathy Physical Exam Vital Signs: Temp Pulse Resp BP Pulse Ox 98.2 F 85 18 119/82 99 06/08/19 18:49 06/08/19 18:49 06/08/19 18:49 06/08/19 18:49 06/08/19 18:49 Intake & Output 06/07/19 06/08/19 06/09/19 06:59 06:59 06:59 Intake Total 12 360 Output Total 2700 Balance 12 -2340 Weight 86.4 kg 86.183 kg General appearance: PRESENT: no acute distress Head exam: PRESENT: atraumatic, normocephalic Eye exam: PRESENT: PERRLA. ABSENT: scleral icterus Ear exam: PRESENT: normal external ear exam Mouth exam: PRESENT: moist, tongue midline Neck exam: PRESENT: full ROM. ABSENT: carotid bruit, JVD, lymphadenopathy, thyromegaly Respiratory exam: PRESENT: clear to auscultation garret Cardiovascular exam: PRESENT: RRR, +S1, +S2 Pulses: PRESENT: normal dorsalis pedis pul, +2 pedal pulses bilateral Vascular exam: PRESENT: normal capillary refill GI/Abdominal exam: PRESENT: normal bowel sounds, soft, other - There is a peritoneal catheter Rectal exam: PRESENT: deferred Neurological exam: PRESENT: alert, CN II-XII grossly intact Psychiatric exam: PRESENT: appropriate affect, normal mood Skin exam: PRESENT: dry, intact, warm Results Laboratory Results: 06/08/19 16:31 06/08/19 04:25 06/08/19 06/08/19 06/08/19 04:25 04:25 04:25 WBC 6.2 RBC 4.73 Hgb 12.4 L Hct 37.8 L MCV 80 MCH 26.2 L MCHC 32.8 RDW 15.9 H Plt Count 276 Seg Neutrophils % 71.6 Sodium 135.6 L Potassium 2.8 L* Chloride 93 L Carbon Dioxide 24 Anion Gap 19 BUN 75 H Creatinine 18.65 H Est GFR ( Amer) 3 L Glucose 137 H Calcium 10.3 H Magnesium 1.7 Total Bilirubin 0.5 AST 29 Alkaline Phosphatase 131 H Total Protein 7.4 Albumin 3.6 TSH 06/08/19 06/08/19 04:25 16:31 WBC 5.8 RBC 4.80 Hgb 12.5 L Hct 38.1 MCV 79 L MCH 26.1 L MCHC 32.8 RDW 15.4 H Plt Count 252 Seg Neutrophils % 71.2 Sodium Potassium Chloride Carbon Dioxide Anion Gap BUN Creatinine Est GFR ( Amer) Glucose Calcium Magnesium Total Bilirubin AST Alkaline Phosphatase Total Protein Albumin TSH 2.44 06/08/19 06/08/19 06/08/19 04:25 10:20 10:20 Creatine Kinase 174 H CK-MB (CK-2) 3.57 Troponin I 0.564 0.479 06/08/19 06/08/19 16:31 16:31 Creatine Kinase 159 CK-MB (CK-2) 3.48 Troponin I 0.474 Impressions: Chest X-Ray 06/08/19 04:37 IMPRESSION: No significant change. Assessment & Plan - Diagnosis (1) Non-ST elevated myocardial infarction Is this a current diagnosis for this admission?: Yes Plan: Patient with suspicious chest symptoms, he has chest pressure, elevated troponin, in the setting of multiple risk factors, patient will be treated as non-ST ME, consultation will be requested from cardiology, start IV aspirin, Plavix, beta-madisyn, statin therapy (2) Peritonitis associated with peritoneal dialysis Qualifiers: Encounter type: initial encounter Qualified Code(s): T85.71XA - Infection and inflammatory reaction due to peritoneal dialysis catheter, initial encounter Is this a current diagnosis for this admission?: Yes Plan: Continue antibiotic per nephrology (3) End-stage renal disease on peritoneal dialysis Is this a current diagnosis for this admission?: Yes Plan: Per nephrology (4) Type 2 diabetes mellitus Qualifiers: Diabetes mellitus terminal operator insulin use: with mcfp use Diabetes mellitus complication status: with kidney complications Diabetes mellitus complication detail: with chronic kidney disease Chronic kidney disease stage: on chronic dialysis Qualified Code(s): E11.22 - Type 2 diabetes mellitus with diabetic chronic kidney disease; N18.6 - End stage renal disease; Z79.4 - group home (current) use of insulin; Z99.2 - Dependence on renal dialysis Is this a current diagnosis for this admission?: Yes Plan: Continue present line of management
--- NOTE | 2019-06-08 20:03 | PDOC PROGRESS REPORT ---
Subjective Progress Note for:: 06/08/19 Subjective:: Patient was admitted with chest pain which he describes as pressure. He was in the ER the night before with similar complaint and was noted to have very high blood pressure. His troponin I was in the indeterminate range. However next day the chest pain came back and came to the emergency room. He was subsequently admitted. I are noted to be in the low suggestive range. Patient has been basically chest pain-free since admission. Patient has been noted to have intermittently high blood pressure. He does describe history of allergy to iodinated dye. On review of my records, his last stress test was actually in June 2018. Whether patient had other stress test elsewhere is not known to me. Patient denied ever having a heart catheterization in the past. Reason For Visit: NST ELEVATED [place] Physical Exam Vital Signs: Temp Pulse Resp BP Pulse Ox 98.2 F 85 18 119/82 99 06/08/19 18:49 06/08/19 18:49 06/08/19 18:49 06/08/19 18:49 06/08/19 18:49 Intake & Output 06/07/19 06/08/19 06/09/19 06:59 06:59 06:59 Intake Total 12 360 Output Total 2700 Balance 12 -2340 Weight 86.4 kg 86.183 kg Exam: GENERAL: well-nourished and in no acute distress. Alert and oriented x3 HEAD: Atraumatic, normocephalic. EYES: OLAYINKA, sclera anicteric, conjunctiva are normal. ENT: Moist mucous membranes. No oral ulcerations or bleeding gums noted. No obvious ear, nose or throat abnormalities noted. NECK: supple without lymphadenopathy. Trachea is central. No cervical or axillary lymphadenopathy noted. Carotids are 2+, JVD WNL LUNGS: Breath sounds clear bilaterally. No wheezes rales or rhonchi noted. No significant dullness noted on percussion. CHEST: Palpation of the chest wall shows no significant chest wall tenderness. 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 ABDOMEN: Soft, no significant tenderness appreciated, normoactive bowel sounds. No guarding, no rebound. No rigidity noted . No masses appreciated. EXTREMITIES: Pedal pulses are 1-2+, no calf tenderness noted. No clubbing or cyanosis. negative pedal edema noted. Dialysis related access surgeries noted on both upper extremities. NEUROLOGICAL: Focused neurological exam showed no significant neurologic deficit. Normal speech, no focal weakness appreciated. PSYCH: Normal mood, normal affect. Judgment and insight within normal limits. SKIN: No significant ecchymosis, skin is noted to be warm. MUSCULOSKELETAL EXAM: No significant acute joint swelling noted. Results Laboratory Results: 06/08/19 16:31 06/08/19 04:25 06/08/19 06/08/19 06/08/19 04:25 04:25 04:25 WBC 6.2 RBC 4.73 Hgb 12.4 L Hct 37.8 L MCV 80 MCH 26.2 L MCHC 32.8 RDW 15.9 H Plt Count 276 Seg Neutrophils % 71.6 Sodium 135.6 L Potassium 2.8 L* Chloride 93 L Carbon Dioxide 24 Anion Gap 19 BUN 75 H Creatinine 18.65 H Est GFR ( Amer) 3 L Glucose 137 H Calcium 10.3 H Magnesium 1.7 Total Bilirubin 0.5 AST 29 Alkaline Phosphatase 131 H Total Protein 7.4 Albumin 3.6 TSH 06/08/19 06/08/19 04:25 16:31 WBC 5.8 RBC 4.80 Hgb 12.5 L Hct 38.1 MCV 79 L MCH 26.1 L MCHC 32.8 RDW 15.4 H Plt Count 252 Seg Neutrophils % 71.2 Sodium Potassium Chloride Carbon Dioxide Anion Gap BUN Creatinine Est GFR ( Amer) Glucose Calcium Magnesium Total Bilirubin AST Alkaline Phosphatase Total Protein Albumin TSH 2.44 06/08/19 06/08/19 06/08/19 04:25 10:20 10:20 Creatine Kinase 174 H CK-MB (CK-2) 3.57 Troponin I 0.564 0.479 06/08/19 06/08/19 16:31 16:31 Creatine Kinase 159 CK-MB (CK-2) 3.48 Troponin I 0.474 EKG Comments: Twelve-lead EKG shows sinus rhythm. No acute ST-T wave changes are noted. Impressions: Chest X-Ray 06/08/19 04:37 IMPRESSION: No significant change. Assessment & Plan - Notes Notes: Chest pain: Patient has multiple cardiac risk factors including diabetes, hypertension, end-stage renal disease on dialysis. There is therefore high probability that the chest pain is from obstructive CAD. Patient troponin I is also in the suggestive range. Troponin I release could well be related to hypertension. Have discussed various treatment option and approaches to his chest pain diagnosis. In this regard nuclear stress test with pharmacologic stress agent and heart catheterization etc. were discussed. Patient describes that he did not like the stress test in the past therefore prefers to undergo heart catheterization. Have reminded patient that heart catheterization is a invasive procedure and does carry some risk. His approach may need to be from the groin area. Also he has allergic reaction to the contrast agent. At this time feel that the pearl digger may just need to see him to get his opinion as to whether he wants to cath him here or send him out. Other option also mentioned that if the echocardiogram shows normal LV function, his medical management can be optimized and cardiac catheterization can be considered once he fails medical management. Patient tells me that he frequently is noncompliant with medication. Hypertension: Blood pressure goal is 135/85. Hyperlipidemia: LDL goal is less than 70, triglycerides goal less than 150. A lipid panel has been ordered. Diabetes: Patient advised good management of diabetes. End-stage renal disease: Patient being followed by resource room special education teacher. We will continue to follow patient. - Time Time with patient: Greater than 35 minutes Medications reviewed and adjusted accordingly: Yes
[2019-06-08] MEDS: HEPARIN SODIUM,PORCINE/D5W 25,000 UNIT/250 ML RTUINJ IV PRN (20:39)
[2019-06-08] MEDS ORDERED: HEPARIN SOD (PORCINE) 1,000 UNIT/ML 10 ML VIAL IV PRN (20:46)
[2019-06-08 21:09] LABS: CHOLESTEROL 212.31 mg/dL (0-200); TRIGLYCERIDES 279 mg/dL (<150)
[2019-06-08] MEDS ORDERED: INSULIN GLARGINE,HUM.REC.ANLOG 1,000 UNIT/10 ML VIAL (PYX) SUBCUT ONE (21:17)
[2019-06-08] MEDS: ASPIRIN 81 MG TABLET, ENT COATED PO SCH (21:21)
[2019-06-08] MEDS: ROPINIROLE HCL 0.25 MG TABLET PO SCH (21:23)
[2019-06-08] MEDS: CALCITRIOL 0.25 MCG CAPSULE PO SCH (21:24)
[2019-06-08] MEDS: POTASSIUM CHLORIDE 10 MEQ CAPSULE.ER PO SCH (21:24)
[2019-06-08] MEDS: CLINDAMYCIN HCL 150 MG CAPSULE PO SCH (21:25)
[2019-06-08] MEDS: CLONIDINE HCL 0.2 MG TABLET PO SCH (21:26)
[2019-06-08] MEDS: CINACALCET HCL 30 MG TABLET PO SCH (21:26)
[2019-06-08] MEDS: METOPROLOL TARTRATE PF/INJ 5 MG/5 ML SDV IV SCH ×2 (21:27→21:32)
[2019-06-08] MEDS: ATORVASTATIN CALCIUM 80 MG TABLET PO SCH (21:27)
[2019-06-08] MEDS: FLUCONAZOLE 100 MG TABLET PO SCH (21:27)
[2019-06-08] MEDS: SEVELAMER HCL 800 MG TABLET PO SCH (21:27)
[2019-06-08 21:29] LABS: DIRECT LDL 116 mg/dL (<100)
[2019-06-08 21:30] LABS: VLDL CHOLESTEROL 55.8 mg/dL (10-31)
[2019-06-08] MEDS: INSULIN GLARGINE,HUM.REC.ANLOG 1,000 UNIT/10 ML VIAL SUBCUT SCH (21:32)
[2019-06-08 23:08] LABS: CREATINE KINASE MB 2.89 ng/mL (<4.55)
[2019-06-08 23:14] LABS: TROPONIN I 0.442 ng/mL
[2019-06-09] MEDS: METOPROLOL TARTRATE PF/INJ 5 MG/5 ML SDV IV SCH ×3 (00:27→12:26)
[2019-06-09 02:43] LABS: ABSOLUTE EOSINOPHILS # (AUTO) 0.3 10^3/uL (0.0-0.6); ABSOLUTE LYMPHOCYTES (AUTO) 0.8 10^3/uL (0.5-4.7); ABSOLUTE MONOCYTES (AUTO) 0.5 10^3/uL (0.1-1.4); ABSOLUTE NEUT (AUTO) 3.5 10^3/uL (1.7-8.2); BASOPHILS % (AUTO) 0.6 % (0-2); EOSINOPHILS % (AUTO) 6.7 % (0-6); HEMATOCRIT 34.6 % (37.9-51.0); HEMOGLOBIN 11.4 g/dL (13.5-17.0); LYMPHOCYTES % (AUTO) 14.9 % (13-45); MEAN CORPUSCULAR VOLUME 79 fl (80-97); MONOCYTES % (AUTO) 8.9 % (3-13); PLATELET COUNT 214 10^3/uL (150-450); RED CELL DISTRIBUTION WIDTH 15.2 % (11.5-14.0); SEGMENTED NEUTROPHILS % (AUTO) 68.9 % (42-78); TOTAL CELLS COUNTED % (AUTO) 100 %; WHITE BLOOD COUNT 5.1 10^3/uL (4.0-10.5)
[2019-06-09 03:05] LABS: ALKALINE PHOSPHATASE 131 U/L (38-126); ANION GAP 16 (5-19); ASPARTATE AMINO TRANSFERASE 31 U/L (17-59); BILIRUBIN,DIRECT 0.3 mg/dL (0.0-0.4); BILIRUBIN,TOTAL 0.4 mg/dL (0.2-1.3); BLOOD UREA NITROGEN 76 mg/dL (7-20); CALCIUM 8.9 mg/dL (8.4-10.2); CARBON DIOXIDE 26 mmol/L (22-30); CHLORIDE 94 mmol/L (98-107); GLUCOSE 203 mg/dL (75-110); TOTAL PROTEIN 6.5 g/dL (6.3-8.2)
[2019-06-09] MEDS: CLONIDINE HCL 0.2 MG TABLET PO SCH ×3 (05:11→21:13)
[2019-06-09] MEDS: CLINDAMYCIN HCL 150 MG CAPSULE PO SCH ×4 (05:12→21:13)
[2019-06-09] MEDS: SEVELAMER HCL 800 MG TABLET PO SCH ×3 (10:11→16:40)
[2019-06-09] MEDS: FOLIC ACID/VITAMIN B COMP W-C CAPSULE PO SCH (10:11)
[2019-06-09] MEDS: ASPIRIN 81 MG TABLET, ENT COATED PO SCH (10:12)
[2019-06-09] MEDS: AMLODIPINE BESYLATE 10 MG TABLET PO SCH (10:12)
[2019-06-09] MEDS: POTASSIUM CHLORIDE 10 MEQ CAPSULE.ER PO SCH ×2 (10:13→21:12)
[2019-06-09] MEDS: CALCITRIOL 0.25 MCG CAPSULE PO SCH (10:14)
[2019-06-09] MEDS: CINACALCET HCL 30 MG TABLET PO SCH (10:14)
[2019-06-09] MEDS: CLOPIDOGREL BISULFATE 75 MG TABLET PO SCH (10:46)
[2019-06-09] MEDS: ROPINIROLE HCL 0.25 MG TABLET PO SCH (10:47)
--- NOTE | 2019-06-09 12:37 | XCELERA REPORT ---
[address] [address] Transthoracic Echocardiogram Report Name: PANCHO BOLAÑOS Age: 53 yrs Gender: Male : 1965 Patient Status: Inpatient Patient Location: [address] [place] [address] Study Date: 06/09/2019 09:38 AM Height: 68 in Weight: 190 lb BSA: 2.0 m2 Procedure: A complete two-dimensional transthoracic echocardiogram was performed (2D, M-mode, spectral and color flow Doppler). The study was technically adequate with some images being suboptimal in quality. Reason For Study: NSTEMI Ordering Physician: DORCAS BLAIR Performed By: Nissa Patricia Interpretation Summary The left ventricular ejection fraction is normal. There is moderate concentric left ventricular hypertrophy. Doppler measurements suggest pseudonormalized left ventricular relaxation, which is associated with grade II/IV or mild to moderate diastolic dysfunction The left ventricle is grossly normal size. Wall motion cannot be accurately commented on, but no definite regional wall motion abnormalities noted. The right ventricular systolic function is normal. The right atrium is normal. The left atrium is mildly dilated. There is a trace amount of mitral regurgitation There is no mitral valve stenosis. There is a trace amount of aortic regurgitation There is no aortic valve stenosis There is a trace or physiologic amount of tricuspid regurgitation Tricuspid regurgitation jet envelope not well defined to measure RV systolic pressure accurately. The aortic root is not well visualized but is probably normal size. The inferior vena cava appeared normal and decreased > 50% with respiration (RAP 5-10 mmHg) There is no pericardial effusion. MMode/2D Measurements & Calculations RVDd: 3.4 cm LVIDd: 4.8 cm FS: 33.8 % Ao root diam: IVSd: 1.1 cm LVIDs: 3.2 cm EDV(Teich): 2.9 cm 105.6 ml Ao root area: LVPWd: 1.4 cm ESV(Teich): 39.4 ml6.5 cm2 EF(Teich): 62.6 % EDV(MOD-sp4): SV(MOD-sp4): 79.9 ml 53.0 ml ESV(MOD-sp4): 26.9 ml EF(MOD-sp4): 66.4 % Doppler Measurements & Calculations MV E max ana: MV dec slope: Ao V2 max: LV V1 max P.6 cm/sec 138.1 cm/sec 3.3 mmHg MV A max ana: 245.8 cm/sec2 Ao max PG: LV V1 max: 81.7 cm/sec MV dec time: 0.27 sec7.6 mmHg 90.4 cm/sec MV E/A: 0.82 PA V2 max: TR max ana: 79.4 cm/sec 152.4 cm/sec PA max P.5 mmHg TR max P.3 mmHg Left Ventricle The left ventricle is grossly normal size. There is moderate concentric left ventricular hypertrophy. The left ventricular ejection fraction is normal. Doppler measurements suggest pseudonormalized left ventricular relaxation, which is associated with grade II/IV or mild to moderate diastolic dysfunction. Wall motion cannot be accurately commented on, but no definite regional wall motion abnormalities noted. Right Ventricle The right ventricle is grossly normal size. There is normal right ventricular wall thickness. The right ventricular systolic function is normal. Atria The right atrium is normal. The left atrium is mildly dilated. Interarterial septum not well visualized and not well dopplered. Cannot comment on ASD/PFO presence. Mitral Valve The mitral valve leaflets are sclerotic, but show no functional abnormalities. There is no mitral valve stenosis. There is a trace amount of mitral regurgitation. Aortic Valve The aortic valve is grossly normal. There is no aortic valve stenosis. There is a trace amount of aortic regurgitation. Tricuspid Valve The tricuspid valve is not well visualized, but is grossly normal. There is no tricuspid stenosis. There is a trace or physiologic amount of tricuspid regurgitation. Tricuspid regurgitation jet envelope not well defined to measure RV systolic pressure accurately. Pulmonic Valve The pulmonic valve is not well visualized. Great Vessels The aortic root is not well visualized but is probably normal size. The inferior vena cava appeared normal and decreased > 50% with respiration (RAP 5-10 mmHg). Effusions There is no pericardial effusion. : DORCAS BLAIR Shyamal
--- NOTE | 2019-06-09 12:57 | PDOC PROGRESS REPORT ---
Subjective Progress Note for:: 06/09/19 Subjective:: Patient was admitted with chest pain which he describes as pressure. He was in the ER the night before with similar complaint and was noted to have very high blood pressure. His troponin I was in the indeterminate range. However next day the chest pain came back and came to the emergency room. He was subsequently admitted. I are noted to be in the low suggestive range. Patient has been basically chest pain-free since admission. Patient has been noted to have intermittently high blood pressure. He does describe history of allergy to iodinated dye. On review of my records, his last stress test was actually in June 2018. Whether patient had other stress test elsewhere is not known to me. Patient denied ever having a heart catheterization in the past. June 09, 2019: Patient resting comfortably in bed. He denied any recurrence of chest pain. 2D echocardiogram shows normal LVEF. No significant valvular abnormalities noted. No definite wall motion abnormalities noted. These results were reviewed with the patient. A consultation with interventional cardiology, handwritten order was written for consultation with Dr. Murguia but it seems Dr. Murguia has not been in to see the patient yet. Patient also somewhat wishy-washy about whether he really wants to have the procedure. Patient definitely did not want to do a nuclear stress test. Have optimized patient medical management. Add small dose of beta-madisyn. Patient claims that he is on CPAP therapy but is noted to be noncompliant and did not bring his CPAP machine to the office. Patient's in the room. Reason For Visit: NST ELEVATED [place] Physical Exam Vital Signs: Temp Pulse Resp BP Pulse Ox 97.9 F 81 16 111/64 96 06/09/19 03:59 06/09/19 10:00 06/09/19 03:59 06/09/19 10:00 06/09/19 03:59 Intake & Output 06/08/19 06/09/19 06/10/19 06:59 06:59 06:59 Intake Total 12 5560 Output Total 7500 Balance Weight 86.4 kg 90 kg 90 kg Exam: GENERAL: well-nourished and in no acute distress. Alert and oriented x3 HEAD: Atraumatic, normocephalic. EYES: OLAYINKA, sclera anicteric, conjunctiva are normal. ENT: Moist mucous membranes. No oral ulcerations or bleeding gums noted. No obvious ear, nose or throat abnormalities noted. NECK: supple without lymphadenopathy. Trachea is central. No cervical or axillary lymphadenopathy noted. Carotids are 2+, JVD WNL LUNGS: Breath sounds clear bilaterally. No wheezes rales or rhonchi noted. No significant dullness noted on percussion. CHEST: Palpation of the chest wall shows no significant chest wall tenderness. 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 ABDOMEN: Soft, no significant tenderness appreciated, normoactive bowel sounds. No guarding, no rebound. No rigidity noted . No masses appreciated. Peritoneal dialysis access surgeries and catheter noted. EXTREMITIES: Pedal pulses are 1-2+, no calf tenderness noted. No clubbing or cyanosis. negative pedal edema noted. Dialysis related access surgeries noted both upper extremity. NEUROLOGICAL: Focused neurological exam showed no significant neurologic deficit. Normal speech, no focal weakness appreciated. PSYCH: Normal mood, normal affect. Judgment and insight within normal limits. SKIN: No significant ecchymosis, skin is noted to be warm. MUSCULOSKELETAL EXAM: No significant acute joint swelling noted. Results Laboratory Results: 06/09/19 02:35 06/09/19 02:35 06/08/19 06/08/19 06/09/19 16:31 16:31 02:35 WBC 5.8 5.1 RBC 4.80 4.40 Hgb 12.5 L 11.4 L Hct 38.1 34.6 L MCV 79 L 79 L MCH 26.1 L 26.0 L MCHC 32.8 33.0 RDW 15.4 H 15.2 H Plt Count 252 214 Seg Neutrophils % 71.2 68.9 Sodium Potassium Chloride Carbon Dioxide Anion Gap BUN Creatinine Est GFR ( Amer) Glucose Calcium Total Bilirubin AST Alkaline Phosphatase Total Protein Albumin Triglycerides 279 H Cholesterol 212.31 H LDL Cholesterol Direct 116 H VLDL Cholesterol 55.8 H HDL Cholesterol 30 L 06/09/19 02:35 WBC RBC Hgb Hct MCV MCH MCHC RDW Plt Count Seg Neutrophils % Sodium 136.1 L Potassium 3.0 L* Chloride 94 L Carbon Dioxide 26 Anion Gap 16 BUN 76 H Creatinine 18.77 H Est GFR ( Amer) 3 L Glucose 203 H Calcium 8.9 Total Bilirubin 0.4 AST 31 Alkaline Phosphatase 131 H Total Protein 6.5 Albumin 3.0 L Triglycerides Cholesterol LDL Cholesterol Direct VLDL Cholesterol HDL Cholesterol 06/08/19 06/08/19 06/08/19 04:25 10:20 10:20 Creatine Kinase 174 H CK-MB (CK-2) 3.57 Troponin I 0.564 0.479 06/08/19 06/08/19 06/08/19 16:31 16:31 22:17 Creatine Kinase 159 136 CK-MB (CK-2) 3.48 Troponin I 0.474 06/08/19 22:17 Creatine Kinase CK-MB (CK-2) 2.89 Troponin I 0.442 Impressions: Chest X-Ray 06/08/19 04:37 IMPRESSION: No significant change. Assessment & Plan - Diagnosis (1) Chest pain Qualifiers: Chest pain type: unspecified Qualified Code(s): R07.9 - Chest pain, unspecified Is this a current diagnosis for this admission?: Yes (2) Non-ST elevated myocardial infarction Is this a current diagnosis for this admission?: Yes (3) End-stage renal disease on peritoneal dialysis Is this a current diagnosis for this admission?: Yes (4) Hypertension Qualifiers: Hypertension type: essential hypertension Qualified Code(s): I10 - E ssential (primary) hypertension Is this a current diagnosis for this admission?: Yes (5) Obstructive sleep apnea Is this a current diagnosis for this admission?: Yes (6) Type 2 diabetes mellitus Qualifiers: Diabetes mellitus jail insulin use: 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 twice daily. Could be increased further as needed. Patient waiting for cardiac cath and consultation with cathing dip stand loader. He is somewhat wishy-washy about the procedure as a whole and is also wanting to go home. Patient's 2D echocardiogram shows normal ejection fraction. Patient has been encouraged to ambulate. He declines to pursue a pharmacologic nuclear stress test. 2D echo results were discussed with the patient. Patient have other significant comorbid problems but these are being well managed. Management of underlying presumed CAD is being optimized. - Time Time with patient: Greater than 35 minutes - More than 50% of the time spent coordinating care, discussing management plans with involved caregivers. Management plans discussed with involved personnels. Medical decision making was of moderate to high complexity, patient's has multiple comorbidities. Medications reviewed and adjusted accordingly: Yes
--- NOTE | 2019-06-09 15:03 | PDOC PROGRESS REPORT ---
Subjective Progress Note for:: 06/09/19 Subjective:: Patient seen by the bedside, he was seen today by the public service representative Dr. Aivles, he recommended cardiac cauterization, Dr. Murguia consulted for in-house cardiac catheterization Reason For Visit: NST ELEVATED [place] Physical Exam Vital Signs: Temp Pulse Resp BP Pulse Ox 97.9 F 70 16 124/87 H 100 06/09/19 11:11 06/09/19 11:11 06/09/19 11:11 06/09/19 11:11 06/09/19 11:11 Intake & Output 06/08/19 06/09/19 06/10/19 06:59 06:59 06:59 Intake Total 12 5560 129 Output Total 7500 Balance 129 Weight 86.4 kg 90 kg 90 kg General appearance: PRESENT: no acute distress Eye exam: PRESENT: PERRLA Respiratory exam: PRESENT: clear to auscultation garret Cardiovascular exam: PRESENT: +S1, +S2 GI/Abdominal exam: PRESENT: soft Neurological exam: PRESENT: alert Results Laboratory Results: 06/09/19 02:35 06/09/19 02:35 06/08/19 06/08/19 06/09/19 16:31 16:31 02:35 WBC 5.8 5.1 RBC 4.80 4.40 Hgb 12.5 L 11.4 L Hct 38.1 34.6 L MCV 79 L 79 L MCH 26.1 L 26.0 L MCHC 32.8 33.0 RDW 15.4 H 15.2 H Plt Count 252 214 Seg Neutrophils % 71.2 68.9 Sodium Potassium Chloride Carbon Dioxide Anion Gap BUN Creatinine Est GFR ( Amer) Glucose Calcium Total Bilirubin AST Alkaline Phosphatase Total Protein Albumin Triglycerides 279 H Cholesterol 212.31 H LDL Cholesterol Direct 116 H VLDL Cholesterol 55.8 H HDL Cholesterol 30 L 06/09/19 02:35 WBC RBC Hgb Hct MCV MCH MCHC RDW Plt Count Seg Neutrophils % Sodium 136.1 L Potassium 3.0 L* Chloride 94 L Carbon Dioxide 26 Anion Gap 16 BUN 76 H Creatinine 18.77 H Est GFR ( Amer) 3 L Glucose 203 H Calcium 8.9 Total Bilirubin 0.4 AST 31 Alkaline Phosphatase 131 H Total Protein 6.5 Albumin 3.0 L Triglycerides Cholesterol LDL Cholesterol Direct VLDL Cholesterol HDL Cholesterol 06/08/19 06/08/19 06/08/19 04:25 10:20 10:20 Creatine Kinase 174 H CK-MB (CK-2) 3.57 Troponin I 0.564 0.479 06/08/19 06/08/19 06/08/19 16:31 16:31 22:17 Creatine Kinase 159 136 CK-MB (CK-2) 3.48 Troponin I 0.474 06/08/19 22:17 Creatine Kinase CK-MB (CK-2) 2.89 Troponin I 0.442 Impressions: Chest X-Ray 06/08/19 04:37 IMPRESSION: No significant change. Assessment & Plan - Diagnosis (1) Non-ST elevated myocardial infarction Is this a current diagnosis for this admission?: Yes Plan: Patient seen by cardiology, Dr. Aviles, in-house cardiac catheterization recommended (2) Peritonitis associated with peritoneal dialysis Qualifiers: Encounter type: initial encounter Qualified Code(s): T85.71XA - Infection and inflammatory reaction due to peritoneal dialysis catheter, initial encounter Is this a current diagnosis for this admission?: Yes Plan: Patient is followed by nephrology, on antibiotic intraperitoneally, undergoing PD without any difficulty (3) End-stage renal disease on peritoneal dialysis Is this a current diagnosis for this admission?: Yes (4) Type 2 diabetes mellitus Qualifiers: Diabetes mellitus halfway insulin use: unspecified halfway insulin use status Diabetes mellitus complication status: with kidney complications Diabetes mellitus complication detail: with chronic kidney disease Chronic kidney disease stage: on chronic dialysis Qualified Code(s): E11.22 - Type 2 diabetes mellitus with diabetic chronic kidney disease; N18.6 - End stage renal disease; Z99.2 - Dependence on renal dialysis Is this a current diagnosis for this admission?: Yes Plan: Continue present line of management - Time Time Spent with patient: 35 or more minutes
[2019-06-09] MEDS: METOPROLOL SUCCINATE 25 MG TAB.SR.24H PO SCH (16:41)
[2019-06-09] MEDS ORDERED: GENTAMICIN SULFATE INJ 80 MG/2 ML VIAL IPER ONE (20:00)
[2019-06-09] MEDS ORDERED: VANCOMYCIN HCL INJ 1000 MG VIAL IPER ONE (20:00)
--- NOTE | 2019-06-09 20:26 | PDOC PROGRESS REPORT ---
Subjective Progress Note for:: 06/09/19 Subjective:: Patient is currently chest pain-free. Patient was evaluated by cafe site attendant, Dr. Aviles who recommended cardiac catheterization and consulted Dr. Murguia. Cardiac medications were optimized. In terms of his peritoneal dialysis so far is going on smoothly without any problems. The reports that his PD fluid effluent is clearing up. So far he has adequate ultrafiltration. He denies any abdominal pain. He denies any other complaints. Reason For Visit: NST ELEVATED [place] Physical Exam Vital Signs: Temp Pulse Resp BP Pulse Ox 97.9 F 70 16 124/87 H 100 06/09/19 11:11 06/09/19 11:11 06/09/19 11:11 06/09/19 11:11 06/09/19 11:11 Intake & Output 06/08/19 06/09/19 06/10/19 06:59 06:59 06:59 Intake Total 12 5560 129 Output Total 7500 Balance 129 Weight 86.4 kg 90 kg 90 kg Exam: General appearance: PRESENT: no acute distress, cooperative, well-developed, well-nourished Head exam: PRESENT: atraumatic, normocephalic Eye exam: PRESENT: conjunctiva slightly pale, PERRLA. ABSENT: scleral icterus Neck exam: ABSENT: JVD Respiratory exam: PRESENT: Normal breath sounds. ABSENT: crackles, rales, rhonchi, unlabored, wheezes Cardiovascular exam: PRESENT: Regular rate rhythm -+S1, +S2. PD catheter in place in the left lower quadrant area. PD exit site without much drainage nor tenderness or palpable abscess formation. ABSENT: diastolic murmur, systolic murmur GI/Abdominal exam: PRESENT: normal bowel sounds, soft. ABSENT: guarding, mass, tenderness Extremities exam: ABSENT: No edema Neurological exam: PRESENT: alert, awake, oriented to person, place and time. Skin exam: PRESENT: dry, warm, Results Laboratory Results: 06/09/19 02:35 06/09/19 02:35 06/08/19 06/08/19 06/09/19 16:31 16:31 02:35 WBC 5.8 5.1 RBC 4.80 4.40 Hgb 12.5 L 11.4 L Hct 38.1 34.6 L MCV 79 L 79 L MCH 26.1 L 26.0 L MCHC 32.8 33.0 RDW 15.4 H 15.2 H Plt Count 252 214 Seg Neutrophils % 71.2 68.9 Sodium Potassium Chloride Carbon Dioxide Anion Gap BUN Creatinine Est GFR ( Amer) Glucose Calcium Total Bilirubin AST Alkaline Phosphatase Total Protein Albumin Triglycerides 279 H Cholesterol 212.31 H LDL Cholesterol Direct 116 H VLDL Cholesterol 55.8 H HDL Cholesterol 30 L 06/09/19 02:35 WBC RBC Hgb Hct MCV MCH MCHC RDW Plt Count Seg Neutrophils % Sodium 136.1 L Potassium 3.0 L* Chloride 94 L Carbon Dioxide 26 Anion Gap 16 BUN 76 H Creatinine 18.77 H Est GFR ( Amer) 3 L Glucose 203 H Calcium 8.9 Total Bilirubin 0.4 AST 31 Alkaline Phosphatase 131 H Total Protein 6.5 Albumin 3.0 L Triglycerides Cholesterol LDL Cholesterol Direct VLDL Cholesterol HDL Cholesterol 06/08/19 06/08/19 06/08/19 04:25 10:20 10:20 Creatine Kinase 174 H CK-MB (CK-2) 3.57 Troponin I 0.564 0.479 06/08/19 06/08/19 06/08/19 16:31 16:31 22:17 Creatine Kinase 159 136 CK-MB (CK-2) 3.48 Troponin I 0.474 06/08/19 22:17 Creatine Kinase CK-MB (CK-2) 2.89 Troponin I 0.442 Impressions: Chest X-Ray 06/08/19 04:37 IMPRESSION: No significant change. Assessment & Plan - Diagnosis (1) Non-ST elevated myocardial infarction Is this a current diagnosis for this admission?: Yes Plan: Currently chest pain-free but with elevated troponin. Cardiology on board. Cardiac catheterization recommended. (2) Peritonitis associated with peritoneal dialysis Qualifiers: Encounter type: initial encounter Qualified Code(s): T85.71XA - Infection and inflammatory reaction due to peritoneal dialysis catheter, initial encounter Is this a current diagnosis for this admission?: Yes Plan: Initial PD fluid culture done at [facility] shows no growth. The PD fluid culture here in the hospital is also negative. The exit site culture however grows gram-negative rods and gram-positive bacilli resembling Corynebacterium with few WBCs for preliminary results. We will follow-up final results with sensitivity. Meanwhile I will continue his vancomycin and gentamicin. Yesterday doses were held because of elevated trough levels for both. Today I am going to re-dose and give him vancomycin 1.5 g and gentamicin 80 mg intraperitoneally 1 dose each. We will recheck trough levels in 2 days. (3) End-stage renal disease on peritoneal dialysis Is this a current diagnosis for this admission?: Yes Plan: Continue CAPD with 2.5 L fill volume (the hospital does not have 3 L bags), every 5 hours for total of 5 exchanges in 24 hours using 2.5% dianeal PD solution. Daily exercise care. Continue aseptic technique. (4) Hypokalemia Is this a current diagnosis for this admission?: Yes Plan: Increase potassium supplement to 20 mEq p.o. every 12 hours. (5) Anemia in chronic kidney disease (CKD) Is this a current diagnosis for this admission?: Yes Plan: Patient does not require Procrit at this time. (6) Hypertension Qualifiers: Hypertension type: essential hypertension Qualified Code(s): I10 - Essential (primary) hypertension Is this a current diagnosis for this admission?: Yes Plan: Improved with resumption of home blood pressure medications. (7) Type 2 diabetes mellitus Qualifiers: Diabetes mellitus pricer bagger insulin use: unspecified senior care insulin use status Diabetes mellitus complication status: with kidney complications Diabetes mellitus complication detail: with chronic kidney disease Chronic kidney disease stage: on chronic dialysis Qualified Code(s): E11.22 - Type 2 diabetes mellitus with diabetic chronic kidney disease; N18.6 - End stage renal disease; Z99.2 - Dependence on renal dialysis Is this a current diagnosis for this admission?: Yes (8) Coronary artery disease Is this a current diagnosis for this admission?: Yes - Time Time with patient: 15-25 minutes
[2019-06-09] MEDS: FLUCONAZOLE 100 MG TABLET PO SCH (21:12)
[2019-06-09] MEDS: HEPARIN SODIUM,PORCINE/D5W 25,000 UNIT/250 ML RTUINJ IV PRN (21:12)
[2019-06-09] MEDS: ATORVASTATIN CALCIUM 80 MG TABLET PO SCH (21:12)
[2019-06-09] MEDS: INSULIN GLARGINE,HUM.REC.ANLOG 1,000 UNIT/10 ML VIAL SUBCUT SCH (21:14)
[2019-06-10] MEDS: METOPROLOL SUCCINATE 25 MG TAB.SR.24H PO SCH ×3 (01:32→21:19)
[2019-06-10] MEDS: METOPROLOL TARTRATE PF/INJ 5 MG/5 ML SDV IV SCH ×4 (01:33→17:38)
[2019-06-10] MEDS: CLINDAMYCIN HCL 150 MG CAPSULE PO SCH ×3 (05:51→21:19)
[2019-06-10] MEDS: CLONIDINE HCL 0.2 MG TABLET PO SCH ×3 (06:13→21:19)
[2019-06-10 06:25] LABS: ABSOLUTE EOSINOPHILS # (AUTO) 0.3 10^3/uL (0.0-0.6); ABSOLUTE LYMPHOCYTES (AUTO) 0.9 10^3/uL (0.5-4.7); ABSOLUTE MONOCYTES (AUTO) 0.3 10^3/uL (0.1-1.4); ABSOLUTE NEUT (AUTO) 3.7 10^3/uL (1.7-8.2); BASOPHILS % (AUTO) 0.7 % (0-2); EOSINOPHILS % (AUTO) 6.2 % (0-6); LYMPHOCYTES % (AUTO) 17.5 % (13-45); MEAN CORPUSCULAR HGB CONC 32.4 g/dL (32.0-36.0); MEAN CORPUSCULAR VOLUME 80 fl (80-97); PLATELET COUNT 255 10^3/uL (150-450); RED BLOOD COUNT 4.62 10^6/uL (4.35-5.55); RED CELL DISTRIBUTION WIDTH 15.2 % (11.5-14.0); SEGMENTED NEUTROPHILS % (AUTO) 69.6 % (42-78); TOTAL CELLS COUNTED % (AUTO) 100 %; WHITE BLOOD COUNT 5.3 10^3/uL (4.0-10.5)
[2019-06-10 07:16] LABS: ANION GAP 16 (5-19); BLOOD UREA NITROGEN 71 mg/dL (7-20); CALCIUM 8.3 mg/dL (8.4-10.2); CARBON DIOXIDE 27 mmol/L (22-30); CHLORIDE 96 mmol/L (98-107); GLUCOSE 167 mg/dL (75-110)
[2019-06-10] MEDS: ASPIRIN 81 MG TABLET, ENT COATED PO SCH (09:06)
[2019-06-10] MEDS: SEVELAMER HCL 800 MG TABLET PO SCH ×3 (09:06→17:38)
[2019-06-10] MEDS: POTASSIUM CHLORIDE 10 MEQ CAPSULE.ER PO SCH (09:07)
[2019-06-10] MEDS: AMLODIPINE BESYLATE 10 MG TABLET PO SCH (09:08)
[2019-06-10] MEDS: FOLIC ACID/VITAMIN B COMP W-C CAPSULE PO SCH (09:08)
[2019-06-10] MEDS: ROPINIROLE HCL 0.25 MG TABLET PO SCH (09:08)
[2019-06-10] MEDS: CLOPIDOGREL BISULFATE 75 MG TABLET PO SCH (09:08)
[2019-06-10] MEDS: CALCITRIOL 0.25 MCG CAPSULE PO SCH (09:09)
[2019-06-10] MEDS: CINACALCET HCL 30 MG TABLET PO SCH (09:09)
[2019-06-10 11:30] LABS: ABSOLUTE BASOPHILS # (AUTO) 0.1 10^3/uL (0.0-0.2); ABSOLUTE EOSINOPHILS # (AUTO) 0.3 10^3/uL (0.0-0.6); ABSOLUTE LYMPHOCYTES (AUTO) 0.8 10^3/uL (0.5-4.7); ABSOLUTE MONOCYTES (AUTO) 0.3 10^3/uL (0.1-1.4); ABSOLUTE NEUT (AUTO) 3.6 10^3/uL (1.7-8.2); EOSINOPHILS % (AUTO) 6.4 % (0-6); HEMATOCRIT 39.9 % (37.9-51.0); LYMPHOCYTES % (AUTO) 16.5 % (13-45); MEAN CORPUSCULAR HEMOGLOBIN 26.2 pg (27.0-33.4); MEAN CORPUSCULAR HGB CONC 32.6 g/dL (32.0-36.0); MEAN CORPUSCULAR VOLUME 80 fl (80-97); MONOCYTES % (AUTO) 6.6 % (3-13); PLATELET COUNT 285 10^3/uL (150-450); RED BLOOD COUNT 4.97 10^6/uL (4.35-5.55); RED CELL DISTRIBUTION WIDTH 15.3 % (11.5-14.0); SEGMENTED NEUTROPHILS % (AUTO) 69.5 % (42-78); TOTAL CELLS COUNTED % (AUTO) 100 %; WHITE BLOOD COUNT 5.1 10^3/uL (4.0-10.5)
[2019-06-10 11:49] LABS: ALBUMIN 3.5 g/dL (3.5-5.0); ALKALINE PHOSPHATASE 133 U/L (38-126); ANION GAP 17 (5-19); ASPARTATE AMINO TRANSFERASE 21 U/L (17-59); BILIRUBIN,DIRECT 0.5 mg/dL (0.0-0.4); BILIRUBIN,TOTAL 0.5 mg/dL (0.2-1.3); BLOOD UREA NITROGEN 68 mg/dL (7-20); CALCIUM 8.7 mg/dL (8.4-10.2); CARBON DIOXIDE 30 mmol/L (22-30); CHLORIDE 92 mmol/L (98-107); GLUCOSE 146 mg/dL (75-110); TOTAL PROTEIN 7.5 g/dL (6.3-8.2)
[2019-06-10 12:18] LABS: POTASSIUM 2.9 mmol/L (3.6-5.0)
[2019-06-10] MEDS ORDERED: POTASSIUM CHLORIDE 10 MEQ CAPSULE.ER PO ONE (15:00)
[2019-06-10] MEDS ORDERED: ONDANSETRON HCL INJ/PF 4 MG/2 ML SDV ONE (15:45)
[2019-06-10] MEDS ORDERED: ONDANSETRON HCL INJ/PF 4 MG/2 ML SDV IV PRN (16:12)
--- NOTE | 2019-06-10 17:54 | PDOC PROGRESS REPORT ---
Subjective Progress Note for:: 06/10/19 Subjective:: Patient was admitted with chest pain which he describes as pressure. He was in the ER the night before with similar complaint and was noted to have very high blood pressure. His troponin I was in the indeterminate range. However next day the chest pain came back and came to the emergency room. He was subsequently admitted. I are noted to be in the low suggestive range. Patient has been basically chest pain-free since admission. Patient has been noted to have intermittently high blood pressure. He does describe history of allergy to iodinated dye. On review of my records, his last stress test was actually in June 2018. Whether patient had other stress test elsewhere is not known to me. Patient denied ever having a heart catheterization in the past. June 09, 2019: Patient resting comfortably in bed. He denied any recurrence of chest pain. 2D echocardiogram shows normal LVEF. No significant valvular abnormalities noted. No definite wall motion abnormalities noted. These results were reviewed with the patient. A consultation with interventional cardiology, handwritten order was written for consultation with Dr. Murguia but it seems Dr. Murguia has not been in to see the patient yet. Patient also somewhat wishy-washy about whether he really wants to have the procedure. Patient definitely did not want to do a nuclear stress test. Have optimized patient medical management. Add small dose of beta-madisyn. Patient claims that he is on CPAP therapy but is noted to be noncompliant and did not bring his CPAP machine to the office. Patient's in the room. June 10, 2019: Patient seen at lunchtime at around 1 PM. He was noted to be somewhat nauseous. He denied any chest arm or neck discomfort. Patient was scheduled to have heart catheterization this morning but for some reason could not be performed. The earliest heart catheterization could be done would be next Friday. I discussed this with the patient. He wanted to be transferred to [place]. I did offer him transferred to [facility] but he de clined. I got in touch with the [facility] transfer center and gave them essentially information. Subsequently, Dr. Cook called me back. He did not feel patient need transfer for heart catheterization as this was not an emergency. He felt that troponin I elevation could well be related to p eritonitis. In any circumstances, patient has been stable, further evaluation if needed can be performed as an outpatient. Patient also wants to go home. I have discussed this case with Dr. Garcia. If patient is felt to be stable otherwise, off heparin, then patient could be discharged home with early appointment with me as an outpatient. Patient does need to be compliant with CPAP therapy and also with medications. Reason For Visit: NST ELEVATED [place] Physical Exam Vital Signs: Temp Pulse Resp BP Pulse Ox 98.2 F 83 16 125/70 90 L 06/10/19 13:44 06/10/19 14:00 06/10/19 13:44 06/10/19 13:44 06/10/19 13:44 Intake & Output 06/09/19 06/10/19 06/11/19 06:59 06:59 06:59 Intake Total 5560 5868 2860 Output Total 7500 4100 3000 Balance -1940 1768 -140 Weight 90 kg 90.6 kg 89.5 kg Exam: GENERAL: well-nourished and in no acute distress. Alert and oriented x3 HEAD: Atraumatic, normocephalic. EYES: [place], sclera anicteric, conjunctiva are normal. ENT: Moist mucous membranes. No oral ulcerations or bleeding gums noted. No obvious ear, nose or throat abnormalities noted. NECK: supple without lymphadenopathy. Trachea is central. No cervical or axillary lymphadenopathy noted. Carotids are 2+, JVD WNL LUNGS: Breath sounds clear bilaterally. No wheezes rales or rhonchi noted. No significant dullness noted on percussion. CHEST: Palpation of the chest wall shows no significant chest wall tenderness. HEART: [place] [employer], No PSH, 1/6 PERLA aortic area, 1/6 avelar systolic murmur mitral area, no rubs, no gallops. ABDOMEN: Soft, no significant tenderness appreciated, normoactive bowel sounds. No guarding, no rebound. No rigidity noted . No masses appreciated. Peritoneal catheter noted. EXTREMITIES: Pedal pulses are 1-2+, no calf tenderness noted. No clubbing or cyanosis. negative pedal edema noted. Bilateral dialysis related access surgery noted on both upper extremity. NEUROLOGICAL: Focused neurological exam showed no significant neurologic deficit. Normal speech, no focal weakness appreciated. PSYCH: Normal mood, normal affect. Judgment and insight within normal limits. SKIN: No significant ecchymosis, skin is noted to be warm. MUSCULOSKELETAL EXAM: No significant acute joint swelling noted. Results Laboratory Results: 06/10/19 10:50 06/10/19 10:50 06/10/19 06/10/19 06/10/19 06:00 06:00 10:50 WBC 5.3 5.1 RBC 4.62 4.97 Hgb 12.0 L 13.0 L Hct 37.0 L 39.9 MCV 80 80 MCH 26.0 L 26.2 L MCHC 32.4 32.6 RDW 15.2 H 15.3 H Plt Count 255 285 Seg Neutrophils % 69.6 69.5 Sodium 139.1 Potassium 3.0 L* Chloride 96 L Carbon Dioxide 27 Anion Gap 16 BUN 71 H Creatinine 18.04 H Est GFR ( Amer) 3 L Glucose 167 H Calcium 8.3 L Total Bilirubin AST Alkaline Phosphatase Total Protein Albumin 06/10/19 10:50 WBC RBC Hgb Hct MCV MCH MCHC RDW Plt Count Seg Neutrophils % Sodium 138.7 Potassium 2.9 L* Chloride 92 L Carbon Dioxide 30 Anion Gap 17 BUN 68 H Creatinine 17.76 H Est GFR ( Amer) 3 L Glucose 146 H Calcium 8.7 Total Bilirubin 0.5 AST 21 Alkaline Phosphatase 133 H Total Protein 7.5 Albumin 3.5 06/08/19 06/08/19 06/08/19 04:25 10:20 10:20 Creatine Kinase 174 H CK-MB (CK-2) 3.57 Troponin I 0.564 0.479 06/08/19 06/08/19 06/08/19 16:31 16:31 22:17 Creatine Kinase 159 136 CK-MB (CK-2) 3.48 Troponin I 0.474 06/08/19 22:17 Creatine Kinase CK-MB (CK-2) 2.89 Troponin I 0.442 Impressions: Chest X-Ray 06/08/19 04:37 IMPRESSION: No significant change. Assessment & Plan - Diagnosis (1) Chest pain Qualifiers: Chest pain type: unspecified Qualified Code(s): R07.9 - Chest pain, unspecified Is this a current diagnosis for this admission?: Yes (2) Non-ST elevated myocardial infarction Is this a current diagnosis for this admission?: Yes (3) End-stage renal disease on peritoneal dialysis Is this a current diagnosis for this admission?: Yes (4) Hypertension Qualifiers: Hypertension type: essential hypertension Qualified Code(s): I10 - Essential (primary) hypertension Is this a current diagnosis for this admission?: Yes (5) Obstructive sleep apnea Is this a current diagnosis for this admission?: Yes (6) Type 2 diabetes mellitus Qualifiers: Diabetes mellitus watcher [employer]at [employer] insulin use: unspecified fci insulin use status Diabetes mellitus complication status: with kidney complications Diabetes mellitus complication detail: with chronic kidney disease Chronic kidney disease stage: on chronic dialysis Qualified Code(s): E11.22 - Type 2 diabetes mellitus with diabetic chronic kidney disease; N18.6 - End stage renal disease; Z99.2 - Dependence on renal dialysis Is this a current diagnosis for this admission?: Yes - Notes Notes: Patient was scheduled to have heart catheterization this morning but for some reason could not be performed. The earliest heart catheterization could be done would be next Friday. I discussed this with the patient. He wanted to be transferred to [place]. I did offer him transferred to [facility] but he declined. I got in touch with the [facility] and gave them essentially information. Subsequently, Dr. Cook called me back. He did not feel patient need transfer for heart catheterization as this was not an emergency. He felt that troponin I elevation could well be related to peritonitis. In any circumstances, patient has been stable, further evaluation if needed can be performed as an outpatient. Patient also wants to go home. I have discussed this case with Dr. Garcia. If patient is felt to be stable otherwise, off heparin, then patient could be discharged home with early appointment with me as an outpatient. Patient does need to be compliant with CPAP therapy and also with medications. Patient's medical management has been optimized. Patient has been placed on beta-madisyn, high potency statin therapy. 2D echocardiogram shows normal LVEF without any definite wall motion abnormalities. Patient has not had any recurrence of chest pain. I feel if he remains stable off heparin, could be discharged in a.m. with close cardiology follow-up. Patient could either pursue a stress testing or a heart catheterization as an outpatient. Discussed with Dr. Garcia. - Time Time with patient: Greater than 35 minutes - Significant time spent discussing patient with [facility], Dr. Cook, Dr. Garcia. Medications reviewed and adjusted accordingly: Yes
--- NOTE | 2019-06-10 20:50 | PDOC PROGRESS REPORT ---
Subjective Progress Note for:: 06/10/19 Subjective:: Patient was seen today by the bedside, the initial plan was to transfer the patient to [facility] for cardiac catheterization but the manager advanced in [place] refused to accept the patient because he has peritoneal catheter related peritonitis, they felt the elevated troponin is probably related to the peritonitis. Patient has remained chest pain-free since hospital admission, he was treated with IV heparin, beta-madisyn, statin because it was felt that the elevated troponin with chest pressure in this patient with significant comorbid conditions including diabetes mellitus, end-stage renal disease, the risk of ischemic heart disease is extremely elevated in this patient. Patient preferred to be transferred to [place] but the accepting manager advanced refused to accept him for cardiac catheterization. I personally called [place] appeals coordinator that I explained this to me but Dr. Aviles spoke to Dr. Cook both manager advanced Reason For Visit: NST ELEVATED [place] Physical Exam Vital Signs: Temp Pulse Resp BP Pulse Ox 98.1 F 71 18 145/66 H 100 06/10/19 16:07 06/10/19 16:07 06/10/19 16:07 06/10/19 16:07 06/10/19 16:07 Intake & Output 06/09/19 06/10/19 06/11/19 06:59 06:59 06:59 Intake Total 5560 5868 5720 Output Total 7500 4100 5400 Balance -1940 1768 320 Weight 90 kg 90.6 kg 89.5 kg General appearance: PRESENT: no acute distress Eye exam: PRESENT: PERRLA Respiratory exam: PRESENT: clear to auscultation garret Cardiovascular exam: PRESENT: +S1, +S2 GI/Abdominal exam: PRESENT: soft Neurological exam: PRESENT: alert Results Laboratory Results: 06/10/19 10:50 06/10/19 10:50 06/10/19 06/10/19 06/10/19 06:00 06:00 10:50 WBC 5.3 5.1 RBC 4.62 4.97 Hgb 12.0 L 13.0 L Hct 37.0 L 39.9 MCV 80 80 MCH 26.0 L 26.2 L MCHC 32.4 32.6 RDW 15.2 H 15.3 H Plt Count 255 285 Seg Neutrophils % 69.6 69.5 Sodium 139.1 Potassium 3.0 L* Chloride 96 L Carbon Dioxide 27 Anion Gap 16 BUN 71 H Creatinine 18.04 H Est GFR ( Amer) 3 L Glucose 167 H Calcium 8.3 L Total Bilirubin AST Alkaline Phosphatase Total Protein Albumin 06/10/19 10:50 WBC RBC Hgb Hct MCV MCH MCHC RDW Plt Count Seg Neutrophils % Sodium 138.7 Potassium 2.9 L* Chloride 92 L Carbon Dioxide 30 Anion Gap 17 BUN 68 H Creatinine 17.76 H Est GFR ( Amer) 3 L Glucose 146 H Calcium 8.7 Total Bilirubin 0.5 AST 21 Alkaline Phosphatase 133 H Total Protein 7.5 Albumin 3.5 06/08/19 06/08/19 06/08/19 04:25 10:20 10:20 Creatine Kinase 174 H CK-MB (CK-2) 3.57 Troponin I 0.564 0.479 06/08/19 06/08/19 06/08/19 16:31 16:31 22:17 Creatine Kinase 159 136 CK-MB (CK-2) 3.48 Troponin I 0.474 06/08/19 22:17 Creatine Kinase CK-MB (CK-2) 2.89 Troponin I 0.442 Impressions: Chest X-Ray 06/08/19 04:37 IMPRESSION: No significant change. Assessment & Plan - Diagnosis (1) Non-ST elevated myocardial infarction Is this a current diagnosis for this admission?: Yes Plan: Discontinue IV heparin, continue all the anti-ischemic drugs (2) Peritonitis associated with peritoneal dialysis Qualifiers: Encounter type: initial encounter Qualified Code(s): T85.71XA - Infection and inflammatory reaction due to peritoneal dialysis catheter, initial encounter Is this a current diagnosis for this admission?: Yes (3) End-stage renal disease on peritoneal dialysis Is this a current diagnosis for this admission?: Yes (4) Type 2 diabetes mellitus Qualifiers: Diabetes mellitus residential insulin use: unspecified terminal manager insulin use status Diabetes mellitus complication status: with kidney complications Diabetes mellitus complication detail: with chronic kidney disease Chronic kidney disease stage: on chronic dialysis Qualified Code(s): E11.22 - Type 2 diabetes mellitus with diabetic chronic kidney disease; N18.6 - End stage renal disease; Z99.2 - Dependence on renal dialysis Is this a current diagnosis for this admission?: Yes - Time Time Spent with patient: 35 or more minutes
--- NOTE | 2019-06-10 21:07 | PDOC PROGRESS REPORT ---
Subjective Progress Note for:: 06/10/19 Subjective:: I saw the patient this morning in his room. He is clinically stable and chest pain-free this morning. He indicated that he wanted to go home but at that time he was waiting for possible transfer at [facility] for cardiac catheterization since procedure could not being done today here in [place] until Friday. This afternoon Dr. Aviles made some communication with [facility] and energy conservation director Dr. Cook for possible transfer but patient Declined. Please see Dr. Aviles's notes. So the plan is for patient to be discharged home and follow-up with Dr. Aviles as an outpatient. Patient's CAPD is so far doing okay. He maintains euvolemia although ultrafiltration is minimal. He denies any shortness of breath. He does not have any leg swelling. His blood pressure is better controlled. He reports that his PD fluid effluent is not clear. He did receive a dose of vancomycin and gentamicin intraperitoneally as I ordered yesterday. He remains to be hypokalemic despite oral potassium. However asymptomatic. Reason For Visit: NST ELEVATED PA Physical Exam Vital Signs: Temp Pulse Resp BP Pulse Ox 98.1 F 71 18 145/66 H 100 06/10/19 16:07 06/10/19 16:07 06/10/19 16:07 06/10/19 16:07 06/10/19 16:07 Intake & Output 06/09/19 06/10/19 06/11/19 06:59 06:59 06:59 Intake Total 5560 5868 5720 Output Total 7500 4100 5400 Balance -1940 1768 320 Weight 90 kg 90.6 kg 89.5 kg Exam: General appearance: PRESENT: no acute distress, cooperative, well-developed, well-nourished Head exam: PRESENT: atraumatic, normocephalic Eye exam: PRESENT: conjunctiva slightly pale, PERRLA. ABSENT: scleral icterus Neck exam: ABSENT: JVD Respiratory exam: PRESENT: Normal breath sounds. ABSENT: crackles, rales, rhon chi, unlabored, wheezes Cardiovascular exam: PRESENT: Regular rate rhythm -+S1, +S2. ABSENT: diastolic murmur, systolic murmur GI/Abdominal exam: PRESENT: normal bowel sounds, soft. PD catheter in place in the left lower quadrant area and there is almost no exit site drainage. No tenderness around the exit site as well. ABSENT: guarding, mass, tenderness Extremities exam: ABSENT: No edema Neurological exam: PRESENT: alert, awake, oriented to person, place and time. Skin exam: PRESENT: dry, warm, Results Laboratory Results: 06/10/19 10:50 06/10/19 10:50 06/10/19 06/10/19 06/10/19 06:00 06:00 10:50 WBC 5.3 5.1 RBC 4.62 4.97 Hgb 12.0 L 13.0 L Hct 37.0 L 39.9 MCV 80 80 MCH 26.0 L 26.2 L MCHC 32.4 32.6 RDW 15.2 H 15.3 H Plt Count 255 285 Seg Neutrophils % 69.6 69.5 Sodium 139.1 Potassium 3.0 L* Chloride 96 L Carbon Dioxide 27 Anion Gap 16 BUN 71 H Creatinine 18.04 H Est GFR ( Amer) 3 L Glucose 167 H Calcium 8.3 L Total Bilirubin AST Alkaline Phosphatase Total Protein Albumin 06/10/19 10:50 WBC RBC Hgb Hct MCV MCH MCHC RDW Plt Count Seg Neutrophils % Sodium 138.7 Potassium 2.9 L* Chloride 92 L Carbon Dioxide 30 Anion Gap 17 BUN 68 H Creatinine 17.76 H Est GFR ( Amer) 3 L Glucose 146 H Calcium 8.7 Total Bilirubin 0.5 AST 21 Alkaline Phosphatase 133 H Total Protein 7.5 Albumin 3.5 06/08/19 06/08/19 06/08/19 04:25 10:20 10:20 Creatine Kinase 174 H CK-MB (CK-2) 3.57 Troponin I 0.564 0.479 06/08/19 06/08/19 06/08/19 16:31 16:31 22:17 Creatine Kinase 159 136 CK-MB (CK-2) 3.48 Troponin I 0.474 06/08/19 22:17 Creatine Kinase CK-MB (CK-2) 2.89 Troponin I 0.442 Impressions: Chest X-Ray 06/08/19 04:37 IMPRESSION: No significant change. Assessment & Plan - Diagnosis (1) Non-ST elevated myocardial infarction Is this a current diagnosis for this admission?: Yes Plan: Currently chest pain-free but with elevated troponin. Cardiology on board. Cardiac catheterization recommended however cannot be done in-house so it may be able to be done as an outpatient. Patient to follow-up with Dr. Aviles. (2) Peritonitis associated with peritoneal dialysis Qualifiers: Encounter type: initial encounter Qualified Code(s): T85.71XA - Infection and inflammatory reaction due to peritoneal dialysis catheter, initial encounter Is this a current diagnosis for this admission?: Yes Plan: Initial PD fluid culture done at [facility] shows no growth. The PD fluid culture here in the hospital is also negative. The exit site culture however grows gram-negative rods and gram-positive bacilli resembling Corynebacterium with few WBCs for preliminary results. We will follow-up final results with sensitivity. Patient has received vancomycin 1.5 g and gentamicin 80 mg intraperitoneally 1 dose each last night. We will recheck trough levels tomorrow. (3) End-stage renal disease on peritoneal dialysis Is this a current diagnosis for this admission?: Yes Plan: Continue CAPD with 2.5 L fill volume (the hospital does not have 3 L bags), every 5 hours for total of 5 exchanges in 24 hours using 2.5% dianeal PD solution. Daily exercise care. Continue aseptic technique. (4) Hypokalemia Is this a current diagnosis for this admission?: Yes Plan: Increase potassium supplement to 40 mEq p.o. every 12 hours. (5) Anemia in chronic kidney disease (CKD) Is this a current diagnosis for this admission?: Yes Plan: Patient does not require Procrit at this time. (6) Hypertension Qualifiers: Hypertension type: essential hypertension Qualified Code(s): I10 - Essential (primary) hypertension Is this a current diagnosis for this admission?: Yes Plan: Improved with resumption of home blood pressure medications. 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
[2019-06-10] MEDS: ATORVASTATIN CALCIUM 80 MG TABLET PO SCH (21:17)
[2019-06-10] MEDS: FLUCONAZOLE 100 MG TABLET PO SCH (21:17)
[2019-06-10] MEDS ORDERED: POTASSIUM CHLORIDE 10 MEQ CAPSULE.ER PO SCH (22:00)
--- NOTE | 2019-06-10 22:03 | EKG REPORT ---
SEVERITY:- ABNORMAL ECG - SINUS RHYTHM PREMATURE ATRIAL ABERRENCY COMPLEX NONSPECIFIC T ABNORMALITIES, DIFFUSE LEADS : Confirmed by: Nathaniel Yates MD 10-Jun-2019 22:03:20
[2019-06-10] MEDS: INSULIN GLARGINE,HUM.REC.ANLOG 1,000 UNIT/10 ML VIAL SUBCUT SCH (22:39)
[2019-06-11] MEDS: METOPROLOL TARTRATE PF/INJ 5 MG/5 ML SDV IV SCH ×2 (01:13→06:37)
[2019-06-11] MEDS: OXYCODONE-ACETAMINOPHEN 5-325 MG TABLET PO PRN ×2 (01:36→08:18)
[2019-06-11 05:45] LABS: ABSOLUTE BASOPHILS # (AUTO) 0.1 10^3/uL (0.0-0.2); ABSOLUTE EOSINOPHILS # (AUTO) 0.4 10^3/uL (0.0-0.6); ABSOLUTE LYMPHOCYTES (AUTO) 1.1 10^3/uL (0.5-4.7); ABSOLUTE MONOCYTES (AUTO) 0.4 10^3/uL (0.1-1.4); ABSOLUTE NEUT (AUTO) 3.1 10^3/uL (1.7-8.2); BASOPHILS % (AUTO) 1.3 % (0-2); HEMATOCRIT 35.3 % (37.9-51.0); HEMOGLOBIN 11.5 g/dL (13.5-17.0); LYMPHOCYTES % (AUTO) 22.1 % (13-45); MEAN CORPUSCULAR HEMOGLOBIN 25.9 pg (27.0-33.4); MEAN CORPUSCULAR HGB CONC 32.5 g/dL (32.0-36.0); MEAN CORPUSCULAR VOLUME 80 fl (80-97); MONOCYTES % (AUTO) 8.3 % (3-13); PLATELET COUNT 276 10^3/uL (150-450); RED BLOOD COUNT 4.43 10^6/uL (4.35-5.55); RED CELL DISTRIBUTION WIDTH 15.1 % (11.5-14.0); SEGMENTED NEUTROPHILS % (AUTO) 61.3 % (42-78); TOTAL CELLS COUNTED % (AUTO) 100 %
[2019-06-11 06:08] LABS: ANION GAP 15 (5-19); BLOOD UREA NITROGEN 61 mg/dL (7-20); CALCIUM 8.2 mg/dL (8.4-10.2); CARBON DIOXIDE 27 mmol/L (22-30); CHLORIDE 96 mmol/L (98-107); GLUCOSE 120 mg/dL (75-110); POTASSIUM 3.5 mmol/L (3.6-5.0)
[2019-06-11 06:09] LABS: VANCOMYCIN,TROUGH 23.9 ug/mL (5.0-20.0)
[2019-06-11 06:11] LABS: GENTAMICIN-TROUGH 2.6 ug/mL (<2.0)
[2019-06-11] MEDS: CLINDAMYCIN HCL 150 MG CAPSULE PO SCH (06:37)
[2019-06-11] MEDS: CLONIDINE HCL 0.2 MG TABLET PO SCH (06:37)
[2019-06-11] MEDS: SEVELAMER HCL 800 MG TABLET PO SCH (08:22)
[2019-06-11] MEDS ORDERED: ERGOCALCIFEROL (VITAMIN D2) 50000 UNIT (1.25 MG) CAPSULE PO SCH (10:00)
[2019-06-11 10:53] VITALS: BP 136/98
--- NOTE | 2019-06-11 13:55 | PDOC DISCHARGE SUMMARY ---
Impression - Admit/DC Date/PCP Admission Date/Primary Care Provider: 06/08/19 17:50 DALE FAIR MD Discharge Date: 06/11/19 - Discharge Diagnosis (1) Non-ST elevated myocardial infarction Is this a current diagnosis for this admission?: Yes (2) Peritonitis associated with peritoneal dialysis Is this a current diagnosis for this admission?: Yes (3) End-stage renal disease on peritoneal dialysis Is this a current diagnosis for this admission?: Yes (4) Type 2 diabetes mellitus Is this a current diagnosis for this admission?: Yes - Additional Information Resuscitation Status: Full Code Discharge Diet: As Tolerated Referrals: LUIS MYERS MD [ACTIVE STAFF] - (Called and left message for Dr. Myers.) YARELIS AVILES MD [ACTIVE STAFF] - 06/23/19 11:00 am DALE FAIR MD [Primary Care Provider] - Follow up as needed Prescriptions: Metoprolol Succinate [Kapspargo Sprinkle] 100 mg PO DAILY #90 cap.spr.24 Home Medications: Aspirin [Aspirin EC] 81 mg PO DAILY 05/07/13 Amlodipine Besylate [Norvasc 10 mg Tablet] 10 mg PO DAILY 09/18/18 Calcitriol [Rocaltrol 0.25 mcg Capsule] 0.25 mcg PO DAILY 09/18/18 Cinacalcet HCl [Sensipar 90 mg Tablet] 180 mg PO DAILY 09/18/18 Clonidine HCl [Catapres 0.3 mg Tablet] 0.3 mg PO Q8 09/18/18 Folic Acid/Vitamin B Comp W-C [Nephro-Mayra Tablet] 0.8 mg PO DAILY 09/18/18 Insulin Glargine,Hum.rec.anlog [Lantus Insulin 100 Unit/mL Insulin Pen] 12 unit SUBCUT QHS 09/18/18 Oxycodone HCl/Acetaminophen [Percocet 10-325 mg Tablet] 1 each PO Q6HP PRN 09/18/18 Sevelamer Carbonate [Renvela] 2,400 mg PO .SNACKS PRN 09/18/18 Sevelamer Carbonate [Renvela] 4,000 mg PO MEALS 09/18/18 Clindamycin HCl [Cleocin 300 mg Capsule] 300 mg PO TID 06/08/19 Clotrimazole/Betamethasone Dip [Lotrisone Cream 15 gm] 1 applic TP BID 06/08/19 Diazepam [Valium 2 mg Tablet] 2 mg PO DAILYP PRN 06/08/19 Ergocalciferol (Vitamin D2) [Drisdol 50,000 unit (1.25MG) Capsule] 50,000 unit PO Q14D 06/08/19 Potassium Chloride 20 meq PO DAILY 06/08/19 Pravastatin Sodium [Pravachol] 20 mg PO DAILY 06/08/19 Ropinirole HCl [Requip] 0.5 mg PO DAILY 06/08/19 Metoprolol Succinate [Kapspargo Sprinkle] 100 mg PO DAILY #90 cap.spr.24 06/11/19 History of Present Illiness History of Present Illness: PANCHO BOLAÑOS is a 53 year old male,with a history of Type 2 diabetes mellitus complicated with end-stage renal disease on maintenance peritoneal dialysis , presently diagnosed with bacterial peritonitis from outpatient on antibiotic, he came to the emergency room earlier this morning for evaluation of chest pressure, he has multiple risk factors for ischemic heart disease including end- stage renal disease on dialysis, in the emergency room a twelve-lead EKG was done, it was sinus rhythm there was no ST T wave deviation. He also stated to me that he had a stress test done in April by Dr. Aviles and that this study was negative according to the patient. The troponin was elevated at 0.5, Hospital Course Hospital Course: Patient was admitted for the management of chest pain, chest pressure associated with elevated serum troponin. On admission he also had peritonitis associated with peritoneal dialysis. Because the presentation was highly suspicious for ischemic heart disease based on the nature of the symptomatology and the fact that he has multiple risk factors for ischemic heart disease including end-stage renal disease, type 2 diabetes mellitus, it was felt that he probably has non-ST elevated myocardial infarction. He was admitted and started on intravenous systemic heparin, beta-madisyn, atorvastatin for cholesterol, consultation was requested from Dr. Aviles, cardiology, he recommended cardiac cauterization. Dr. Aviles consulted the in-house horse wrangler for cardiac catheterization but the horse wrangler felt that the elevated troponin is most likely related to the peritonitis so the cardiac catheterization was declined. Patient was also seen by nephrology Dr. Myers she manage the peritonitis and the peritoneal dialysis, he was treated with intraperitoneal antibiotic with gentamicin, vancomycin. The peritoneal fluid was cloudy on admission subsequently became clear suggesting patient's response to antibiotic.It should be noted that patient did not experience any chest pain throughout hospital stay while he was on intravenous systemic anticoagulation with heparin. Patient improved, subsequent EKG that was done did not demonstrate any deviation in the ST-T segment.Patient was determined to go home today and thought he was going to sign AMA just for him to be discharged home today, he was discharged home today, he will follow with Dr. Aviles outpatient for possible stress test Physical Exam Vital Signs: Temp Pulse Resp BP Pulse Ox 98.2 F 68 16 136/98 H 100 06/11/19 10:40 06/11/19 10:38 06/11/19 10:38 06/11/19 10:40 06/11/19 10:40 Intake & Output 06/10/19 06/11/19 06/12/19 06:59 06:59 06:59 Intake Total 5868 34410 2600 Output Total 4100 76947 3300 Balance 1768 970 -700 Weight 90.6 kg 88.7 kg 88.7 kg General appearance: PRESENT: no acute distress Eye exam: PRESENT: PERRLA Respiratory exam: PRESENT: clear to auscultation garret Cardiovascular exam: PRESENT: +S1, +S2 GI/Abdominal exam: PRESENT: soft Neurological exam: PRESENT: alert, CN II-XII grossly intact Results Laboratory Results: WBC 5.0 10^3/uL (4.0-10.5) 06/11/19 05:00 RBC 4.43 10^6/uL (4.35-5.55) 06/11/19 05:00 Hgb 11.5 g/dL (13.5-17.0) L 06/11/19 05:00 Hct 35.3 % (37.9-51.0) L 06/11/19 05:00 MCV 80 fl (80-97) 06/11/19 05:00 MCH 25.9 pg (27.0-33.4) L 06/11/19 05:00 MCHC 32.5 g/dL (32.0-36.0) 06/11/19 05:00 RDW 15.1 % (11.5-14.0) H 06/11/19 05:00 Plt Count 276 10^3/uL (150-450) 06/11/19 05:00 Lymph % (Auto) 22.1 % (13-45) 06/11/19 05:00 [place] % (Auto) 8.3 % (3-13) 06/11/19 05:00 Eos % (Auto) 7.0 % (0-6) H 06/11/19 05:00 Baso % (Auto) 1.3 % (0-2) 06/11/19 05:00 Absolute Neuts (auto) 3.1 10^3/uL (1.7-8.2) 06/11/19 05:00 Absolute Lymphs (auto) 1.1 10^3/uL (0.5-4.7) 06/11/19 05:00 Absolute Monos (auto) 0.4 10^3/uL (0.1-1.4) 06/11/19 05:00 Absolute Eos (auto) 0.4 10^3/uL (0.0-0.6) 06/11/19 05:00 Absolute Basos (auto) 0.1 10^3/uL (0.0-0.2) 06/11/19 05:00 Seg Neutrophils % 61.3 % (42-78) 06/11/19 05:00 PT 15.4 SEC (11.4-15.4) 06/08/19 18:57 INR 1.21 06/08/19 18:57 APTT 35.6 SEC (23.5-35.8) 06/10/19 20:59 Sodium 138.4 mmol/L (137-145) 06/11/19 05:00 Potassium 3.5 mmol/L (3.6-5.0) L 06/11/19 05:00 Chloride 96 mmol/L (98-107) L 06/11/19 05:00 Carbon Dioxide 27 mmol/L (22-30) 06/11/19 05:00 Anion Gap 15 (5-19) 06/11/19 05:00 BUN 61 mg/dL (7-20) H 06/11/19 05:00 Creatinine 16.33 mg/dL (0.52-1.25) H 06/11/19 05:00 Est GFR ( Amer) 4 (>60) L 06/11/19 05:00 Est GFR (MDRD) Non-Af 3 (>60) L 06/11/19 05:00 Glucose 120 mg/dL (75-110) H 06/11/19 05:00 POC Glucose 113 mg/dL (70-110) H 06/10/19 22:35 Calcium 8.2 mg/dL (8.4-10.2) L 06/11/19 05:00 Magnesium 1.7 mg/dL (1.6-2.3) 06/08/19 04:25 Total Bilirubin 0.5 mg/dL (0.2-1.3) 06/10/19 10:50 Direct Bilirubin 0.5 mg/dL (0.0-0.4) H 06/10/19 10:50 Neonat Total Bilirubin Not Reportable 06/10/19 10:50 Neonat Direct Bilirubin Not Reportable 06/10/19 10:50 Neonat Indirect Bili Not Reportable 06/10/19 10:50 AST 21 U/L (17-59) 06/10/19 10:50 ALT 22 U/L (<50) 06/10/19 10:50 Alkaline Phosphatase 133 U/L (38-126) H 06/10/19 10:50 Creatine Kinase 136 U/L (55-170) 06/08/19 22:17 CK-MB (CK-2) 2.89 ng/mL (<4.55) 06/08/19 22:17 Troponin I 0.442 ng/mL 06/08/19 22:17 Total Protein 7.5 g/dL (6.3-8.2) 06/10/19 10:50 Albumin 3.5 g/dL (3.5-5.0) 06/10/19 10:50 Triglycerides 279 mg/dL (<150) H 06/08/19 16:31 Cholesterol 212.31 mg/dL (0-200) H 06/08/19 16:31 LDL Cholesterol Direct 116 mg/dL (<100) H 06/08/19 16:31 VLDL Cholesterol 55.8 mg/dL (10-31) H 06/08/19 16:31 HDL Cholesterol 30 mg/dL (>40) L 06/08/19 16:31 TSH 2.44 uIU/mL (0.47-4.68) 06/08/19 04:25 Time Trough Drawn 0500 06/11/19 05:00 Time Trough Drawn 0500 06/11/19 05:00 Gentamicin Trough 2.6 ug/mL (<2.0) H 06/11/19 05:00 Vancomycin Trough 23.9 ug/mL (5.0-20.0) H 06/11/19 05:00 06/08/19 06/08/19 06/08/19 04:25 10:20 16:31 CK-MB (CK-2) 3.57 3.48 Troponin I 0.564 0.479 0.474 06/08/19 22:17 CK-MB (CK-2) 2.89 Troponin I 0.442 Impressions: Chest X-Ray 06/08/19 04:37 IMPRESSION: No significant change. Stroke Is this a Stroke Patient?: No Stroke Pt being discharged on Anti-thrombolytic therapy?: No Reason(s) for not prescribing Anti-thrombolytic therapy:: Not indicated Stroke Pt being discharged on Anti-coagulation therapy?: No Reason(s) for not prescribing Anti-coagulation therapy:: Not indicated Stroke Pt being discharged on Statins?: No Reason(s) for not prescribing Statins therapy:: Not indicated Acute Heart Failure - Is this a Heart Failure Patient?: No Follow-up Appointment scheduled within 7 days?: Yes
--- NOTE | 2019-06-12 11:58 | PDOC PROGRESS REPORT ---
Subjective Progress Note for:: 06/11/19 Subjective:: Patient was admitted with chest pain which he describes as pressure. He was in the ER the night before with similar complaint and was noted to have very high blood pressure. His troponin I was in the indeterminate range. However next day the chest pain came back and came to the emergency room. He was subsequently admitted. I are noted to be in the low suggestive range. Patient has been basically chest pain-free since admission. Patient has been noted to have intermittently high blood pressure. He does describe history of allergy to iodinated dye. On review of my records, his last stress test was actually in June 2018. Whether patient had other stress test elsewhere is not known to me. Patient denied ever having a heart catheterization in the past. June 09, 2019: Patient resting comfortably in bed. He denied any recurrence of chest pain. 2D echocardiogram shows normal LVEF. No significant valvular abnormalities noted. No definite wall motion abnormalities noted. These results were reviewed with the patient. A consultation with interventional cardiology, handwritten order was written for consultation with Dr. Murguia but it seems Dr. Murguia has not been in to see the patient yet. Patient also somewhat wishy-washy about whether he really wants to have the procedure. Patient definitely did not want to do a nuclear stress test. Have optimized patient medical management. Add small dose of beta-madisyn. Patient claims that he is on CPAP therapy but is noted to be noncompliant and did not bring his CPAP machine to the office. Patient's in the room. June 10, 2019: Patient seen at lunchtime at around 1 PM. He was noted to be somewhat nauseous. He denied any chest arm or neck discomfort. Patient was scheduled to have heart catheterization this morning but for some reason could not be performed. The earliest heart catheterization could be done would be next Friday. I discussed this with the patient. He wanted to be transferred to [place]. I did offer him transferred to [facility] but he de clined. I got in touch with the [facility] transfer center and gave them essentially information. Subsequently, Dr. Cook called me back. He did not feel patient need transfer for heart catheterization as this was not an emergency. He felt that troponin I elevation could well be related to p eritonitis. In any circumstances, patient has been stable, further evaluation if needed can be performed as an outpatient. Patient also wants to go home. I have discussed this case with Dr. Garcia. If patient is felt to be stable otherwise, off heparin, then patient could be discharged home with early appointment with me as an outpatient. Patient does need to be compliant with CPAP therapy and also with medications. June 11: No new complaints. Patient is wanting to be discharged to go home. He feels stable enough. Patient encouraged to follow-up with me on or his primary care physician on Friday.EKG reviewed showed no significant ST segment changes. Minor nonspecific T wave changes are noted. Reason For Visit: NST ELEVATED UT Physical Exam Vital Signs: Temp Pulse Resp BP Pulse Ox 98.2 F 68 16 136/98 H 100 06/11/19 10:40 06/11/19 10:38 06/11/19 10:38 06/11/19 10:40 06/11/19 10:40 Intake & Output 06/10/19 06/11/19 06/12/19 06:59 06:59 06:59 Intake Total 5868 71490 2600 Output Total 4100 92382 3300 Balance 1768 970 -700 Weight 90.6 kg 88.7 kg 88.7 kg Exam: GENERAL: well-nourished and in no acute distress. Alert and oriented x3 HEAD: Atraumatic, normocephalic. EYES: [place], sclera anicteric, conjunctiva are normal. ENT: Moist mucous membranes. No oral ulcerations or bleeding gums noted. No obvious ear, nose or throat abnormalities noted. NECK: supple without lymphadenopathy. Trachea is central. No cervical or axillary lymphadenopathy noted. Carotids are 2+, JVD WNL LUNGS: Breath sounds clear bilaterally. No wheezes rales or rhonchi noted. No significant dullness noted on percussion. CHEST: Palpation of the chest wall shows no significant chest wall tenderness. 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 ABDOMEN: Soft, no significant tenderness appreciated, normoactive bowel sounds. No guarding, no rebound. No rigidity noted . No masses appreciated. Peritoneal catheter noted. EXTREMITIES: Pedal pulses are 1-2+, no calf tenderness noted. No clubbing or cyanosis. negative pedal edema noted. Bilateral dialysis related access surgery noted on both upper extremity. NEUROLOGICAL: Focused neurological exam showed no significant neurologic deficit. Normal speech, no focal weakness appreciated. PSYCH: Normal mood, normal affect. Judgment and insight within normal limits. SKIN: No significant ecchymosis, skin is noted to be warm. MUSCULOSKELETAL EXAM: No significant acute joint swelling noted. Results Laboratory Results: 06/11/19 05:00 06/11/19 05:00 06/10/19 06/11/19 06/11/19 10:50 05:00 05:00 WBC 5.0 RBC 4.43 Hgb 11.5 L Hct 35.3 L MCV 80 MCH 25.9 L MCHC 32.5 RDW 15.1 H Plt Count 276 Seg Neutrophils % 61.3 Sodium 138.7 138.4 Potassium 2.9 L* 3.5 L Chloride 92 L 96 L Carbon Dioxide 30 27 Anion Gap 17 15 BUN 68 H 61 H Creatinine 17.76 H 16.33 H Est GFR ( Amer) 3 L 4 L Glucose 146 H 120 H Calcium 8.7 8.2 L Total Bilirubin 0.5 AST 21 Alkaline Phosphatase 133 H Total Protein 7.5 Albumin 3.5 06/08/19 06/08/19 06/08/19 04:25 10:20 10:20 Creatine Kinase 174 H CK-MB (CK-2) 3.57 Troponin I 0.564 0.479 06/08/19 06/08/19 06/08/19 16:31 16:31 22:17 Creatine Kinase 159 136 CK-MB (CK-2) 3.48 Troponin I 0.474 06/08/19 22:17 Creatine Kinase CK-MB (CK-2) 2.89 Troponin I 0.442 EKG Comments: Minor Non sp T wave changes Impressions: Chest X-Ray 06/08/19 04:37 IMPRESSION: No significant change. Assessment & Plan - Diagnosis (1) Chest pain Qualifiers: Chest pain type: unspecified Qualified Code(s): R07.9 - Chest pain, unspecified Is this a current diagnosis for this admission?: Yes (2) Non-ST elevated myocardial infarction Is this a current diagnosis for this admission?: Yes (3) End-stage renal disease on peritoneal dialysis Is this a current diagnosis for this admission?: Yes (4) Hypertension Qualifiers: Hypertension type: essential hypertension Qualified Code(s): I10 - Essential (primary) hypertension Is this a current diagnosis for this admission?: Yes (5) Obstructive sleep apnea Is this a current diagnosis for this admission?: Yes (6) Type 2 diabetes mellitus Qualifiers: Diabetes mellitus snf insulin use: 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 His 12 lead EKG did not show any significant ST segment changes. Patient has been threatening to leave AMA therefore patient is stable, decision was made for patient be discharged with close cardiology follow-up. Patient medical regimen has been optimised. Reviewed patient care management with Dr Boyce. - Time Time with patient: Greater than 35 minutes Medications reviewed and adjusted accordingly: Yes
== END 2019-06-11 10:45 | disposition home or self-care (01) | DRG 280 ==
LOC: ER 03:29 → INTOOBSV 06:52 → EH 06:52 → OBSVTOIN 17:50 → 3S 18:27
PROVIDERS: ADMIT Internal Medicine; ATTEND Internal Medicine
DX: I21.4 Non-ST elevation (NSTEMI) myocardial infarction (principal); N18.6 End stage renal disease; K65.8 Other peritonitis; T85.71XA Infection and inflammatory reaction due to peritoneal dialysis catheter, initial encounter; T86.12 Kidney transplant failure; I12.0 Hypertensive chronic kidney disease with stage 5 chronic kidney disease or end stage renal disease; I21.9 Acute myocardial infarction, unspecified; I50.9 Heart failure, unspecified; G47.33 Obstructive sleep apnea (adult) (pediatric); I25.10 Atherosclerotic heart disease of native coronary artery without angina pectoris; E78.00 Pure hypercholesterolemia, unspecified; D63.1 Anemia in chronic kidney disease; E87.6 Hypokalemia; J44.9 Chronic obstructive pulmonary disease, unspecified; E11.22 Type 2 diabetes mellitus with diabetic chronic kidney disease; Z86.711 Personal history of pulmonary embolism; Z99.2 Dependence on renal dialysis
CPT/HCPCS: 36415; 71045; 71046; 80048; 80053; 80061; 80170; 80202; 82550; 82553; 82962; 83735; 84443; 84484; 85025; 85610; 85730; 87070; 87075; 87205; 90945; 90947; 93005; 93010; 93306; 96365; 99285; G0378; J1580; J1644; J1815; J2405; J3370; J3480; J3490

== ENCOUNTER → 2019-06-14 | Outpatient (CLI) | payer MEDICARE, MEDICAID ==
[2019-06-14 10:52] LABS: GENTAMICIN-TROUGH 2.6 ug/mL (<2.0)
== END ==
LOC: DAVITANR 09:09
PROVIDERS: ATTEND Internal Medicine Nephrology
DX: T85.71XA Infection and inflammatory reaction due to peritoneal dialysis catheter, initial encounter (principal); E87.6 Hypokalemia
CPT/HCPCS: 80170; 84132

== ENCOUNTER 2019-07-12 16:55 | Outpatient (CLI) | payer MEDICARE, MEDICAID ==
[2019-07-12] MEDS ORDERED: IMIPENEM/CILASTATIN SODIUM 1,000 MG in NORMAL SALINE 250 ML IV ONE (18:00)
== END 2019-07-12 18:00 | disposition home or self-care (01) ==
LOC: II 16:55 → 2N 16:57 → II 18:00
PROVIDERS: ATTEND Internal Medicine Nephrology
DX: T85.71XA Infection and inflammatory reaction due to peritoneal dialysis catheter, initial encounter (principal)
CPT/HCPCS: J0743; J7050; 96365

== ENCOUNTER 2019-07-14 16:55 | Outpatient (CLI) | payer MEDICARE, MEDICAID ==
[2019-07-14 18:15] VITALS: BP 158/93
[2019-07-14] MEDS ORDERED: IMIPENEM/CILASTATIN SODIUM 1,000 MG in NORMAL SALINE 250 ML IV SCH (18:30)
== END 2019-07-14 20:10 | disposition home or self-care (01) ==
LOC: II 16:55 → 4S 17:09 → II 20:10
PROVIDERS: ATTEND Internal Medicine Nephrology
DX: T85.71XA Infection and inflammatory reaction due to peritoneal dialysis catheter, initial encounter (principal)
CPT/HCPCS: J0743; J7050

== ENCOUNTER → 2019-07-15 | Outpatient (CLI) | payer MEDICARE, MEDICAID ==
--- NOTE | 2019-07-15 14:33 | RADIOLOGY REPORT (SQ) ---
EXAM DESCRIPTION: CT ABD/PELVIS NO ORAL OR IV COMPLETED DATE/TIME: 07/15/2019 1:56 pm REASON FOR STUDY: T85.691S [facility] COMPL OF INTRAPERITONEAL DIALYSIS CATHETER, SEQUELA R50.9 FEVER, UN SPECIFIED T85.691S [facility] COMPL OF INTRAPERITONEAL DIALYSIS CATHETER, SE COMPARISON: CT abdomen pelvis 09/18/2018 TECHNIQUE: CT scan of the abdomen and pelvis performed without intravenous or oral contrast. Images reviewed with lung, soft tissue, and bone windows. Reconstructed coronal and sagittal MPR images revi ewed. All images stored on PACS. All CT scanners at this facility use dose modulation, iterative reconstruction, and/or weight based d osing when appropriate to reduce radiation dose to as low as reasonably achievable (ALARA). [facility]: Dose Right [facility]: CareDose [facility]: Dose Right [facility]: Teradose 4D [facility]: [employer] RADIATION DOSE: CT Rad equipment meets quality standard of care and radiation dose reduction techniq ues were employed. CTDIvol: 10.7 mGy. DLP: 587 mGy-cm.mGy. LIMITATIONS: None. FINDINGS: Patient is on peritoneal dialysis. A peritoneal dialysis catheter is present with the loo p in the left lower quadrant. Along the anterior abdominal wall, the tunneled portion of catheter demonstrates trace fluid tracking along the medial aspect of the catheter through the anterior abdominal wall fat. No well circumscri bed abscess or fluid pocket in the anterior abdominal wall is present. There is peritoneal dialysis fluid throughout the peritoneal cavity. Tumoral or ectopic calcificatio ns are present in the right upper quadrant and left peritoneal space adjacent to the left iliac bifur cation/iliopsoas muscle on axial image 69 unchanged from 09/18/2018 CT abdomen pelvis. Since the prior CT exam, the patient has developed a thin rim of small bowel wall calcification along the anti mesenteric border throughout the jejunum. No findings worrisome for small bowel obstructio n. These findings have been reported in the literature in patient is on peritoneal dialysis [employer] J [employer] of Gastroenterology 2013;62:(1):55-58 LOWER CHEST: Bilateral gynecomastia. Lung bases are clear. Small hiatal hernia NON-CONTRASTED LIVER, SPLEEN, ADRENALS: Evaluation limited by lack of IV contrast. No identified sign ificant masses. PANCREAS: No masses. No peripancreatic inflammatory changes. GALLBLADDER: No identified stones by CT criteria. No inflammatory changes to suggest cholecystitis. RIGHT KIDNEY AND URETER: Small right kidney with multiple cortical cysts. No hydronephrosis. No col lecting system stones. LEFT KIDNEY AND URETER: Small left kidney with multiple cortical cysts. No hydronephrosis. No colle cting system stones. AORTA AND RETROPERITONEUM: No aneurysm. No retroperitoneal masses or adenopathy. BOWEL AND PERITONEAL CAVITY: As above. APPENDIX: Not identified PELVIS, BLADDER, AND ABDOMINAL WALL:Peritoneal dialysis fluid in pelvis. Bladder decompressed. Rect um unremarkable. No adenopathy BONES: Diffuse bony sclerosis from renal osteodystrophy OTHER: No other significant finding. IMPRESSION: Trace fluid tracking along the peritoneal dialysis catheter through the anterior abdomin al wall. No anterior abdominal wall abscess or fluid pocket is identified. Peritoneal dialysis catheter loop is in the left lower quadrant. Dialysis fluid the peritoneal space . Since the prior CT in September 2018, patient has developed bowel wall mural calcifications in the jeju num without CT signs of bowel obstruction. This is of uncertain clinical significance. COMMENT: A case of isolated small intestinal wall calcification in patient with continuous ambulator y peritoneal dialysis, [employer] Journal [employer] Gastroenterology 2013;62:(1):55-58 Quality ID # [id number]: Final reports with documentation of one or more dose reduction techniques (e.g., Au tomated exposure control, adjustment of the mA and/or kV according to patient size, use of iterative reconstruction technique) TECHNICAL DOCUMENTATION: JOB ID: [id number] [employer]- All Rights Reserved Reading location - IP/workstation name: [email or web address]
== END ==
LOC: RAD 13:48
PROVIDERS: ATTEND Internal Medicine Nephrology
DX: T85.691S Other mechanical complication of intraperitoneal dialysis catheter, sequela (principal); R50.9 Fever, unspecified; N25.0 Renal osteodystrophy; Q61.02 Congenital multiple renal cysts
CPT/HCPCS: 74176

== ENCOUNTER 2019-07-27 16:20 | Emergency (ER) | payer MEDICARE, MEDICAID ==
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
[2019-07-27] MEDS ORDERED: SODIUM BICARBONATE 8.4% INJ 50 MEQ/50 ML DISP.SYRIN ONE (19:08)
[2019-07-27] MEDS ORDERED: EPINEPHRINE INJ 1 MG/10 ML DISP.SYRIN ONE (19:08)
[2019-07-27] MEDS ORDERED: CALCIUM GLUCONATE 1000 MG/10 ML INJ IV ONE (19:08)
== END 2019-07-27 16:30 | disposition expired ==
LOC: ER 16:20
DX: I46.9 Cardiac arrest, cause unspecified (principal); I25.10 Atherosclerotic heart disease of native coronary artery without angina pectoris; E78.00 Pure hypercholesterolemia, unspecified; E11.9 Type 2 diabetes mellitus without complications; E11.22 Type 2 diabetes mellitus with diabetic chronic kidney disease; I13.2 Hypertensive heart and chronic kidney disease with heart failure and with stage 5 chronic kidney disease, or end stage renal disease; I50.9 Heart failure, unspecified; N18.6 End stage renal disease; Z99.2 Dependence on renal dialysis; I25.2 Old myocardial infarction; Z86.711 Personal history of pulmonary embolism
CPT/HCPCS: 99285; 92950; 31500; J0610; J0171; J3490